=== PATIENT | female | born 1995 | race Caucasian/White ===

== ENCOUNTER 2024-01-12 16:31 | Emergency (ER) | payer SELFPAY ==
[2024-01-12 16:39] VITALS: BP 154/102; PULSE 108; TEMP 37.7; O2SAT 98; BMI 41.2
[2024-01-12 17:02] LABS: Influenza Virus A Antigen Negative; Influenza Virus B Antigen Negative; Internal Control Within Normal Limits; Strep A Antigen Screen Negative
[2024-01-12 17:03] LABS: Internal Control Within Normal Limits; SARS-CoV-2 Ag NEGATIVE (NEGATIVE)
--- NOTE | 2024-01-12 17:14 | ED.URI1 ---
HPI - URI/Sore Throat General Chief Complaint: Upper Respiratory Infection Stated Complaint: WEAKNESS Time Seen by Provider: 01/12/24 16:48 Source: patient Limitations: no limitations History of Present Illness HPI Narrative: The patient is coming to us with 1 day history of bilateral ear pain in addition to sore throat and cough productive, also generalized weakness and fever that she took some Tylenol for at home Patient denies any other concerns Related Data Previous Rx's ?Medication ?Instructions ?Recorded ciprofloxacin HCl 0.2 % ear drops 5 drp otic (ear) BID 7 days #14 ea 01/12/24 in a dropperette Allergies Allergy/AdvReac Type Severity Reaction Status Date / Time No Known Drug Allergies Allergy Verified 01/12/24 16:39 Review of Systems ROS Status of ROS 10 or more systems reviewed and unremarkable except as noted in history and below Exam Narrative Exam Narrative: Nurses notes and vital signs reviewed and patient is not hypoxic. General: Well-appearing and in no apparent distress. Skin: Warm, dry, no pallor noted. No rash. Head: Normocephalic, atraumatic. Neck: Supple, non-tender. Eye: Pupils are equal, round and EOMI. No scleral icterus. Ears, patient have bilateral tonsillar erythema and no enlargement or exudates, the uvula is in the midline, bilateral examination of the ears showed that the patient have external auditory canal inflamed mostly in the right side left is within normal and the tympanic membrane is intact Respiratory: No accessory muscle use or respiratory distress. Lungs are clear to auscultation, no wheezing, rales or rhonchi Chest Wall: no tenderness Back: No midline thoracic or lumbar vertebral tenderness. No CVA tenderness Musculoskeletal: normal ROM, no calf or popliteal tenderness, no lower extremity edema/swelling GI: Abdomen is soft, non-distended. Normal bowel sounds. No masses appreciated. No tenderness to palpation. No rebound, guarding, or rigidity noted. Neurological: A&O x4. No cranial nerve dysfunction observed. No truncal ataxia. Moves all extremities. Sensation intact. Psychiatric: Cooperative and interactive. Normal mood and affect. Constitutional Vital Signs, click to edit/add: Last Vital Signs Temp 99.9 F 01/12/24 16:39 Pulse 108 H 01/12/24 16:39 Resp 18 01/12/24 16:39 BP 154/102 H 01/12/24 16:39 Pulse Ox 98 01/12/24 16:39 O2 Del Method Room Air 01/12/24 16:39 Course Vital Signs Vital signs: Vital Signs Temperature 99.9 F 01/12/24 16:39 Pulse Rate 108 H 01/12/24 16:39 Respiratory Rate 18 01/12/24 16:39 Blood Pressure 154/102 H 01/12/24 16:39 Pulse Oximetry 98 01/12/24 16:39 Oxygen Delivery Method Room Air 01/12/24 16:39 Temperature 99.9 F 01/12/24 16:39 Pulse Rate 108 H 01/12/24 16:39 Respiratory Rate 18 01/12/24 16:39 Blood Pressure 154/102 H 01/12/24 16:39 Pulse Oximetry 98 01/12/24 16:39 Oxygen Delivery Method Room Air 01/12/24 16:39 MDM - URI/Sore Throat MDM Narrative Medical decision making narrative: Manager New Product the patient presenting with the upper respiratory tract infection symptoms and otitis externa Right now patient is to rest and hydrate at home in addition to ciprofloxacin eardrops for her bilateral ear Supportive care for upper respiratory tract infection symptoms The patient is to follow up with primary care physician in next 2-3 days or to return to the emergency department should any of the signs or symptoms worsen or new symptoms develop. The patient agrees with the following Diagnosis and Treatment plan and the patient will be discharged home. Lab Data Labs: Lab Results 01/12/24 Range/Units 16:42 Influenza Type A Ag Negative Influenza Type B Ag Negative SARS-CoV-2 Ag (CV2AG) Negative (NEGATIVE) Streptococcus Screen Negative Discharge Plan Discharge Chief Complaint: Upper Respiratory Infection Clinical Impression: Upper respiratory infection, Otitis externa Patient Disposition: Home, Self-Care Time of Disposition Decision: 17:12 Condition: Good Prescriptions / Home Meds: New ciprofloxacin HCl 0.2 % dropperette 5 drp otic (ear) BID 7 Days Qty: 14 0RF Rx Instructions: for both ears please it can be replaced with ophthalmic 0.3 % in case not available Print Language: Uzbek Instructions: Swimmer's Ear (ED), Acute Bronchitis (ED), Viral Syndrome (ED) Referrals: Physician,Non-Staff, MD [Primary Care Provider] - 1 week
[2024-01-12 17:28] VITALS: BP 143/99; PULSE 92; O2SAT 99
== END 2024-01-12 17:28 | disposition home or self-care (01) ==
PROVIDERS: Emergency Provider Emergency Medicine
DX: J06.9 Acute upper respiratory infection, unspecified (principal); H60.93 Unspecified otitis externa, bilateral; Z20.822 Contact with and (suspected) exposure to COVID-19
CPT/HCPCS: 87070; 87804; 87811; 87880; 99285

== ENCOUNTER 2025-01-30 11:54 | Emergency (ER) | payer MEDICAID, SELFPAY ==
--- OUTSIDE RECORDS SUMMARY | 2024-10-17 05:30 | XMS_ITS ---
Author Organization [facility] Servic es Address [address] [place] [address] Care Team Providers Care Case Management Director Name Role Phone Agnes Howard Primary Care Provider [phone] Elaine Spring Unavailable [phone] REASON FOR VISIT FILLING Social History Sex Assigned At : Social History Observation Description Sex Assigned At Female Encounters Encounter Location Date Provider Diagnosis [facility] Services [address] [place] [address] 10/17/2024 Elaine Sahni Plan Of Treatment Next Appt Details Provider Name:Zakia vaughan, 02/05/2025 09:15:00 AM, [address] [place], [address], Progress Notes * ELIEZER KOVACS LDOB:[birth year] (29 yo F)Acc No.[id number]:10/17/2024 Patient:?ELIEZER KOVACS :?ELAINE SAHNI DDSDOB:1995???Age: 29 Y???Sex:FemaleDate:10/17/2024Phone:[phone]:[address] [place] [address]Pcp:Agnes Howard Subjective: * Chief Complaints: * F ILLING Billing Information: * Procedure Codes: * Electronic signature of Elaine Sahni DDS on 01/30/2025 at 12:50 PM ESTSign off status: Pending * Provider: Rosita SAHNI DDS Date: 0 10/17/2024 Generated for Printing/Faxing/eTransmitting on:?01/30/2025 12:50 PM EST
--- OUTSIDE RECORDS SUMMARY | 2024-10-19 03:00 | XMS_ITS ---
Author Organization [facility] Servic es Address [address] [place] [address] Care Team Providers Care [place] Program Coordinator Name Role Phone Agnes Howard Primary Care Provider Elaine Spring Unavailable [phone] REASON FOR VISIT FILLING Social History Sex Assigned At : Social History Observation Description Sex Assigned At Female Encounters Encounter Location Date Provider Diagnosis [address] [place] [address] 10/19/2024 Elaine Sahni Plan Of Treatment Next Appt Details Provider Name:Zakia vaughan, 02/05/2025 09:15:00 AM, [address], [place], [address], Progress Notes * ELIEZER KOVACS LDOB:[birth year] (29 yo F)Acc No.[id number]:10/19/2024 Patient:?ELIEZER KOVACS :?ELAINE SAHNI DDSDOB:1995???Age: 29 Y???Sex:FemaleDate:10/19/2024Phone:[phone]:[address] [place] [address]Pcp:Agnes Howard Subjective: * Chief Complaints: * F ILLING Billing Information: * Procedure Codes: * Electronic signature of Elaine Sahni DDS on 01/30/2025 at 12:49 PM ESTSign off status: Pending * Provider: F IORELLA JUAN JOSE SAHNI, DDS Date: 0 10/19/2024 Generated for Printing/Faxing/eTransmitting on:?01/30/2025 12:49 PM EST
--- OUTSIDE RECORDS SUMMARY | 2024-10-24 03:00 | XMS_ITS ---
Author Organization [facility] Servic es Address [address] [place] [address] Care Team Providers Care Interdisciplinary Professor Name Role Phone Agnes Howard Primary Care Provider Elaine Spring Unavailable REASON FOR VISIT FILLING Social History Sex Assigned At : Social History Observation Description Sex Assigned At Female Encounters Encounter Location Date Provider Diagnosis [address] [place] [address] 10/24/2024 Elaine Sahni Plan Of Treatment Next Appt Details Provider Name:Zakia vaughan, 02/05/2025 09:15:00 AM, [address], [place], [address], Progress Notes * ELIEZER KOVACS LDOB:[birth year] (29 yo F)Acc No.[id number]:10/24/2024 Patient:?ELIEZER KOVACS :?ELAINE SAHNI DDSDOB:1995???Age: 29 Y???Sex:FemaleDate:10/24/2024Phone:[phone]:[address] [place] [address]Pcp:Agnes Howard Subjective: * Chief Complaints: * F ILLING * Electronic signature of Elaine Sahni DDS on 01/30/2025 at 12:49 PM ESTSign off status: Pending * Provider: Rosita SAHNI DDS Date: 0 10/24/2024 Generated for Printing/Faxing/eTransmitting on:?01/30/2025 12:49 PM EST
--- OUTSIDE RECORDS SUMMARY | 2024-12-07 03:30 | XMS_ITS ---
Author Organization [facility] Servic es Address [address] [place] [address] Care Team Providers Care Home Health Attendant Name Role Phone Agnes Howard Primary Care Provider REASON FOR VISIT BH F/U Social History Sex Assigned At : Social History Observation Description Sex Assigned At Female Encounters Encounter Location Date Provider Diagnosis [place] [address] [place] [address] 12/07/2024 Agnes Howard Plan Of Treatment Next Appt Details Provider Name:Zakia Mar[place]am[place] vaughan, 02/05/2025 09:15:00 AM, [address], [place], [address], Progress Notes * ELIEZER KOVACS LDOB:[birth year] (29 yo F)Acc No.[id number]:12/07/2024 BH F/U - Patient Patient: Chance ELIEZER BALDERRAMA :?Agnes Howard LPCDOB:1995???Age:29 Y ???Sex:FemaleDate:12/07/2024Phone:[phone]:[id number] [place] [address] Subjective: * Chief Complaints: * B H F/U Billing Information: * Procedure Codes: Care Plan Details* * Electronic signature of Agnes Howard LPC on 01/30/2025 at 12:49 PM ESTSign off status: Pending * Provider: Doroteo Howard LPC Date: 0 12/07/2024 Generated for Printing/Faxing/eTransmitting on:?01/30/2025 12:49 PM EST
--- OUTSIDE RECORDS SUMMARY | 2024-12-14 03:30 | XMS_ITS ---
Author Organization [facility] Servic es Address [address] [place] [address] Care Team Providers Care Dye Feeder Name Role Phone Agnes Howard Primary Care Provider [phone] REASON FOR VISIT BH F/U Social History Sex Assigned At : Social History Observation Description Sex Assigned At Female Encounters Encounter Location Date Provider Diagnosis [place] [address] 12/14/2024 Agnes Howard Plan Of Treatment Next Appt Details Provider Name:Zakia [place] vaughan, 02/05/2025 09:15:00 AM, [address], [place], [address], Progress Notes * ELIEZER KOVACS LDOB:[birth year] (29 yo F)Acc No.[id number]:12/14/2024 BH F/U - Patient Patient: Chance ELIEZER BALDERRAMA :?Agnes Howard LPCDOB:1995???Age:29 Y ???Sex:FemaleDate:12/14/2024Phone:[phone]:[id number] [place] [address] Subjective: * Chief Complaints: * B H F/U Billing Information: * Procedure Codes: Care Plan Details* * Electronic signature of Agnes Howard LPC on 01/30/2025 at 12:53 PM ESTSign off status: Pending * Provider: Doroteo Howard LPC Date: 0 12/14/2024 Generated for Printing/Faxing/eTransmitting on:?01/30/2025 12:53 PM EST
[2025-01-30] VITALS (12 sets, daily range): BP systolic 133–155; BP diastolic 90–109; PULSE 89; TEMP 37; O2SAT 96–99; BMI 43.9
[2025-01-30 12:47] LABS: Anion Gap 9.3; Blood Urea Nitrogen 17.0 mg/dL (7.0-18.0); Calcium 8.7 mg/dL (8.5-10.1); Carbon Dioxide 25.0 mmol/L (21.0-32.0); Chloride 109 mmol/L (98-107); Estimated GFR (African America >60 (>=60 mL/min/1.73m^2); Estimated GFR (Non-African Ame 50 (>=60 mL/min/1.73m^2); Glucose 93 mg/dL (74-106); Potassium 4.3 mmol/L (3.5-5.1); Sodium 139 mmol/L (136-145)
[2025-01-30 12:48] LABS: Hematocrit 41.7 % (36.0-48.0); Hemoglobin 14.0 g/dL (12.0-16.0); Immature Granulocytes Abs Auto 0.01 10^3/uL (0.00-0.03); Immature Granulocytes Pct Auto 0.2 % (0.0-0.5); Lymphocytes Absolute Auto 1.5 10^3/uL (1.2-3.8); Mean Corpuscular HGB Conc 33.6 g/dL (29.9-35.2); Mean Corpuscular Hemoglobin 29.9 pg (26.7-34.0); Mean Corpuscular Volume 89.1 fL (81.0-99.0); Platelet Count 262 10^3/uL (150-450); Red Blood Count 4.68 10^6/uL (4.20-5.40); White Blood Count 6.0 10^3/uL (4.0-11.0)
--- OUTSIDE RECORDS SUMMARY | 2025-01-30 12:49 | XMS_ITS | Patient Health Record ---
Author Organization [facility] Servic es Address [address] [place] [address] Care Team Providers Care Thermit Welding Machine Operator Name Role Phone Anita Agnes Primary Care Provider Yvette Spring Unavailable Nadine Lin Unavailable [phone] Allergies No Known Allergies Reason For Referral No Information Medications Medication SIG (Take, Route, Frequency, Duration) Notes Start Date End Date Status Aspirin 81 MG Tablet Chewable 1 tablet Orally On ce a day; Duration: 30 days 4ActiveCarvedilol 3.125 MG TabletTAKE 1 TABLET BY MOUTH TWICE A DAY WITH FOOD FOR 30 DAYS; Duration: 30patient needs appointmentActiveVitamin D3 125 MCG (5000 UT) Tablet1 tablet Orally Once a dayActiveMagnesium 200 MG Tablet2 tablets with a meal Orally Once a dayActive Social History Tobacco Use: Social History Observation Description Date Details (start date - stop date) Never Smoker NA - NA Sex Assigned At : Social History Observation Description Sex Assigned At Female Social History GeneralSocial InfoQuestionAnswerNotesTransition of Care:ER/UC/hospital since last office visit?NoSpecialist seen since last office visit?NoSubstance abuse/mental health issues of patient/familyPatient -Caffeine Use, Alcohol Ability to understand healthcare/treatmentPatient:FairTobacco Screen:Are you a: never smokerSocial/Support Concerns:Patient:NoAlcohol Screening:Did you have a drink containing alcohol in the past year?Yes? How often did you have a drink containing alcohol in the past year?Monthly or less (1 point)Points1 InterpretationNegativeBehaviors affecting healthPoor/Risky Behaviors:Denies- Communication Barrier:Language Barrier?:No Problems Problem Type SNOMED Code ICD Code Onset Dates Problem Status W/U Status Risk Notes Problem Essential hypertension (98851752) Essenti al hypertension (I10) ActiveconfirmedProblemNephrotic syndrome (53254629)Nephrotic syndrome (N04.9) ActiveconfirmedProblemPosttraumatic stress disorder (22890117)PTSD (post- traumatic stress disorder) (F43.10)ActiveconfirmedProblemChronic kidney disease stage 3A (472825820)Stage 3a chronic kidney disease (N18.31)Activeconfirmed Encounters Encounter Location Date Provider Diagnosis [address] [address] 10/25/2024 Agnes Howard PTSD (post-traumatic stress disorder) F43.[address] [address] 11/30/2024 Agnes Howard PTSD (post-traumatic stress disorder) F43.[address] [address] 06/14/2024 Yvette Javed Encounter for dental examination and cleaning with abnormal findings Z01.21 ; Other dental procedure status Z98.818 ; Disturbances in tooth eruption K00.6 ; Acute gingivitis, plaque induced K05.00 ; Dental caries on pit and fissure surface penetrating into dentin K02.52 and Necrosis of pulp K04.[address] [address] 08/08/2024 Yvette Javed Dental caries on pit and fissure surface penetrating into dentin K02.[address] [address] 08/03/2024 Nadine Lin Dental caries on pit and fissure surface penetrating into dentin K02.52 ; Encounter for dental examination and cleaning with abnormal findings Z01.21 and Other dental procedure status Z98.818 Assessments Encounter Date Diagnosis (ICD Code) Assessment Notes Treatment Notes Treatment Clinical Notes Section Notes 06/14/2024 Encounter for dental examination and cleaning with abnormal findings (ICD-10 - Z01.21) 08/03/2024Dental caries on pit and fissure surface penetrating into dentin (ICD- 10 - K02.52)08/08/2024Dental caries on pit and fissure surface penetrating into dentin (ICD-10 - K02.52)10/25/2024PTSD (post-traumatic stress disorder) (ICD-10 - F43.10)11/30/2024PTSD (post-traumatic stress disorder) (ICD-10 - F43.10) 08/03/2024Encounter for dental examination and cleaning with abnormal findings (ICD-10 - Z01.21)06/14/2024Other dental procedure status (ICD-10 - Z98.818) 06/14/2024Disturbances in tooth eruption (ICD-10 - K00.6)08/03/2024Other dental procedure status (ICD-10 - Z98.818)06/14/2024ute gingivitis, plaque induced (ICD-10 - K05.00)06/14/2024Dental caries on pit and fissure surface penetrating into dentin (ICD-10 - K02.52)06/14/2024Necrosis of pulp (ICD-10 - K04.1) Plan Of Treatment Next Appt Details Provider Name:Zakia vaughan, 02/05/2025 09:15:00 AM, [address], [place], [address], Insurance Providers Payer Name Payer Address Payer Phone Subscriber Number Group Number Insured Name Patient Relationship to Insured Coverage Start Date Coverage End Date [employer] [place] Medicaid [address] [place] [address] [id number] ELIEZER ELLIOTT - patient is the insured 3 [facility] BCB[address] [place] [id number] ARENAS - patient is the [id number] COMMERCIALPO [address] [address] [place] [id number], MORGANSelf - patient is the [id number] 2024[facility] [address] [place] [id number], MORGANSelf - patient is the [id number] 2024 [facility] [address] [place] [address] [phone], MORGANSelf - patient is the insured 2024[facility] [place] MedicaidPO [address] [address] [place] [address] [id number], MORGANSelf - patient is the insured 2024[facility] [address] [place] [phone] [id number], MORGANSelf - patient is the [id number] 2024 Medical (General) History Medical History History ICD Code KIDNEY DISEASE HTNSurgical History Surgery Date(Month/Year) 2 CSECTIONS TONILECTOMYURETHRA REATTACHMENT
--- OUTSIDE RECORDS SUMMARY | 2025-01-30 12:50 | XMS_ITS | Clinical Summary ---
Author Organization [facility] Healthcare Address [address] [place] [address] Care Team Providers Care Weight Control Engineer Name Role Phone Unavailable Primary Care Provider Unavailabl e Allergies No known active allergies Medications MedicationSigDispense QuantityRefillsLast FilledStart DateEnd DateStatus cholecalciferol (Vitamin D-3) 125 MCG (5000 UT) tablet 1 (one) time each day at the same timeActive losartan (Cozaar) 25 MG tablet Take 25 mg by mouth in the morning.5Active sulfacetamide suspension (Klaron) 10 % lotion topical Indications:Acne vulgarisApply thin layer to face once daily, 30 day supply. 118 mL 5Active tretinoin (Retin-A) 0.025 % cream Indications:Acne vulgarisApply topically at bedtime Apply thin layer to face at bedtime 45 g /6Active Active Problems No known active problems Family History Medical HistoryRelationNameCommentsMelanomaNeg Hx Social History Tobacco UseTypesPacks/DayYears UsedDateSmoking Tobacco: NeverSmokeless Tobacco: Never Tobacco Cessation:Counseling Given: Not Answered CommentsUnknownSex and Gender InformationValueDate RecordedSex Assigned at BirthNot on fileLegal PkcJmrdis12/15/2023 6:58 PM EDTGender IdentityNot on fileSexual OrientationNot on file Last Filed Vital Signs Vital SignReadingTime TakenCommentsBlood Ekgmozts551/7102/25/2020 12:00 PM EST Pulse--Temperature--Respiratory Rate--Oxygen Saturation--Inhaled Oxygen Concentration--Kdslpt45.3 kg (208 lb)02/25/2020 12:00 PM FOBIjdysx710.6 cm (5' 4 )02/25/2020 12:00 PM ESTBody Mass Index35.712 12:00 PM EST Plan of Treatment Not on file Insurance * Guarantor: Tom Urban TypeRelation to PatientDate of PhoneBilling AddressPersonal/CoolcqJbgi64/03/[id number] [address]
--- OUTSIDE RECORDS SUMMARY | 2025-01-30 12:50 | XMS_ITS | Encounter Summary ---
Author Organization [facility] tem Address [id number] [address] [place] [address] Care Team Providers Care Asset Protection Detective Name Role Phone Delicia Parker HASHER MACHINE OPERATOR-OIL FILTERS INSPECTOR Primary Care Provider + Encounter Details DateTypeDepartmentCare Team (Latest Contact Info)Qpvdioqtddx51/11/2025Results Follow-Up [facility] - Emergency Department [address] [place] [address] Delicia Parker, HASHER MACHINE OPERATOR-OIL FILTERS INSPECTOR [address] [place] [address] ECG 12 lead Social History Tobacco UseTypesPacks/DayYears UsedDateSmoking Tobacco: NeverSmokeless Tobacco: NeverAlcohol UseStandard Drinks/WeekCommentsNot Currently0 (1 standard drink = 0.6 oz pure alcohol)[facility] UtilitiesAnswerDate RecordedIn the past 12 months has the [employer], gas, oil, or water [facility] threatened to shut off services in your home?No10/19/2024Overall Financial Resource Strain (CARDIA)AnswerDate Recorded How hard is it for you to pay for the very basics like food, housing, medical care, and heating?Not hard at all10/26/2022HQ-2AnswerDate RecordedTotal Score14 09/28/2024PRAPARE - TransportationAnswerDate RecordedIn the past 12 months, has lack of transportation kept you from medical appointments or from getting medications?No10/19/2024In the past 12 months, has lack of transportation kept you from meetings, work, or from getting things needed for daily living?No 10/19/2024Edinburgh Depression ScaleAnswerDate RecordedEdinburgh Depression Scale Makne704The thought of harming myself has occurred to me.Never11/23/2022Housing InstabilityAnswerDate RecordedAre you worried or concerned that in the next two months you may not have stable housing that you own, rent or stay in as a part of a household?No10/19/2024hildcare AnswerDate RecordedDo problems getting early childhood associate make it difficult for you to work or study?No10/26/2022EmploymentAnswerDate RecordedDo you need help finding a local career center and/or a training program?No10/04/2022Hunger Screening AnswerDate RecordedWithin the past 12 months we worried whether our food would run out before we got money to buy more.Never True12/07/2024Within the past 12 months the food we bought just didn't last and we didn't have money to get more. Never True12/07/2024CommentsNoSex and Gender InformationValueDate RecordedSex Assigned at CmyexFwhnex00/07/2023 10:14 AM EDTLegal SexFemale 12/02/2020 11:56 AM EDTGender OfgouserOjairz50/07/2023 10:14 AM EDTSexual QejdvgxnlhzMvujnpwh03/07/2023 10:14 AM EDTdocumented as of this encounter Plan of Treatment DateTypeDepartmentCare Team (Latest Contact Info)Mhhdustxenn00/13/2025 4:15 PM ESTAppointment [facility] [address] [place] [address] 03/22/2025 9:40 AM ESTOffice Visit [facility] [address] [place] [address] Delicia Parker, HASHER MACHINE OPERATOR-OIL FILTERS INSPECTOR [address] [place] [address] documented as of this encounter Visit Diagnoses Not on filedocumented in this encounter Additional Health Concerns InfectionOnset DateLast IndicatedResolved TimeRespiratory Rule-Out12/07/2024 5012/07/2024 10:16 PM EDTAssessmentNoted TimePHQ-9 Depression Total Score: 14009/28/2024 11:50 AM EDTdocumented as of this encounter Care Teams Team MemberRelationshipSpecialtyStart DateEnd Date Delicia Parker, HASHER MACHINE OPERATOR-OIL FILTERS INSPECTOR [address] [place] [address] PCP - GeneralFamily Medicine04/26/24documented as of this encounter
--- OUTSIDE RECORDS SUMMARY | 2025-01-30 12:50 | XMS_ITS | Patient Health Record ---
Author Organization Formerly [facility] vices Address [address] [place], [place] [id number] Care Team Providers Care Big Data Analytics Lead Name Role Phone Kostas Rosa Unavailable [phone] Allergies No Known Allergies Reason For Referral No Information Problems Problem Type SNOMED Code ICD Code Onset Dates Problem Status W/U Status Risk Notes Problem Hypertension (96128109) HTN (hypertension ) (I10) ActiveconfirmedProblemVenereal disease screening (011362413)Screening for STD (sexually transmitted disease) (Z11.3)ActiveconfirmedComment:counseled on gardasil vaccine, encouraged condom use,ProblemLower urinary tract infectious disease (disorder) (9832935)UTI (lower urinary tract infection) (N39.0)Active confirmedComment:> 100 k ecoli, intermediate resisitence to macrobid, sent in cipro,ProblemContraception care management (907705046)Contraception management (Z30.9)ActiveconfirmedComment:Contraception counseling and management done., ProblemHypertrophy of vulva (10772349)Labia enlarged (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 Guardian consents as does patient,Story:pt states gets in the way when uses tampons, during intercourse, causes pain, effects self esteem, pt very self conscious about this,Problem Proteinuria (01659732)Proteinuria (R80.9)ActiveconfirmedComment:24 hr urine collection demonstrated 398 mg of protein in urine, will refer to nut sorter, ProblemNoninflammatory disorder of the vagina (80860479)Discharge from the vagina (N89.8)ActiveconfirmedComment:normal cervical mucous, no odor,Description:Vaginal DischargeProblemVenereal disease screening (394917710) Screen for STD (sexually transmitted disease) (Z11.3)ActiveconfirmedProblem Contraception care education (311477576)Encounter for contraceptive planning (Z30.09)ActiveconfirmedProblemFlank pain (473215312)Flank pain (R10.9)Active confirmedComment:Pt recently treated for UTI with Macrobid. Said that most symptoms improved but she is still having flank pain.,ProblemPain in female pelvis (254135489)Pelvic pain in female (R10.2)Activeconfirmed Comment:dysmenorrhea, pt states only has pelvic pain when has cycles US normal pt has been on depo, states persistently having irregular bleeding, desires to try alternative management - pt states stopped using patch as no longer sexually active dysmenorrhea resolved. Cycles regular, ProblemVaginal odor (513301055)Vaginal odor (N89.8)ActiveconfirmedProblem Noninflammatory disorder of the vagina (16820269)Foul smelling vaginal discharge (N89.8)ActiveconfirmedComment:Vaginal discharge with odor. Empiric treatment. Vag cx sent. STD screen done.,ProblemContraception care education (884040809) Family planning advice (Z30.09)ActiveconfirmedDescription:CONTRACEPTIVE COUNSELING NEC Plan Of Treatment No Information Insurance Providers Payer Name Payer Address Payer Phone Subscriber Number Group Number Insured Name Patient Relationship to Insured Coverage Start Date Coverage End Date [facility] [address] [place] [address] [id number] Dalia Urban - patient is the [id number] 2022Medicaid [facility] [address] [place], [place] [id number], MorganSelf - patient is the [id number] 2022 Medical (General) History Surgical History Surgery Date(Month/Year) Tonsillectomy and adenoidectomy, Problem Status: Active, Surgery to reattach urethra, COMMENTS: 2009, ProblemStatus: Active,
--- OUTSIDE RECORDS SUMMARY | 2025-01-30 12:50 | XMS_ITS | Encounter Summary ---
Author Organization [facility] tem Address [id number] [address] [place] [address] Care Team Providers Care Supervisor Cytogenetic Laboratory Name Role Phone Delicia Parker HOUSEKEEPER MANAGER-SPLIT LEATHER DEPARTMENT SUPERVISOR Primary Care Provider + Encounter Details DateTypeDepartmentCare Team (Latest Contact Info)Tilohhctvfj96/06/2025Results Follow-Up [facility] - Emergency [address] [place] [address] Delicia Parker, HOUSEKEEPER MANAGER-SPLIT LEATHER DEPARTMENT SUPERVISOR [address] [place] [address] ECG 12 lead Social History Tobacco UseTypesPacks/DayYears UsedDateSmoking Tobacco: NeverSmokeless Tobacco: NeverAlcohol UseStandard Drinks/WeekCommentsNot Currently0 (1 standard drink = 0.6 oz pure alcohol)[facility] UtilitiesAnswerDate RecordedIn the past 12 months has the Training Advisor, gas, oil, or water [employer] threatened to shut off services in your [...] living?No 10/19/2024Edinburgh Depression ScaleAnswerDate RecordedEdinburgh Depression Scale Wyilj914The thought of harming myself has occurred to me.Never11/23/2022Housing InstabilityAnswerDate RecordedAre you worried or concerned that in the next two months you may not have stable housing that you own, rent or stay in as a part of a household?No10/19/2024hildcare AnswerDate RecordedDo problems getting child adolescent psychiatrist make it difficult for you to work [...] True12/07/2024CommentsNoSex and Gender InformationValueDate RecordedSex Assigned at OnsykFbfigf91/07/2023 10:14 AM EDTLegal SexFemale 12/02/2020 11:56 AM EDTGender WwulbyvfZprnnl88/07/2023 10:14 AM EDTSexual CqcocqvwolgBsxbljsd81/07/2023 10:14 AM EDTdocumented as of this encounter Plan of Treatment DateTypeDepartmentCare Team (Latest Contact Info)Nlbftzknwkt96/13/2025 4:15 PM ESTAppointment [facility] [address] [place] [address] 03/22/2025 9:40 AM ESTOffice Visit [facility] [address] [place] [address] Delicia Parker, HOUSEKEEPER MANAGER-SPLIT LEATHER DEPARTMENT SUPERVISOR [address] [place] [address] documented as of this encounter Visit Diagnoses Not on filedocumented in this encounter Additional Health Concerns AssessmentNoted TimePHQ-9 Depression Total Score: 14009/28/2024 11:50 AM EDT documented as of this encounter Care Teams Team MemberRelationshipSpecialtyStart DateEnd Date Delicia Parker, HOUSEKEEPER MANAGER-SPLIT LEATHER DEPARTMENT SUPERVISOR [address] [place] [address] PCP - GeneralFamily Medicine04/26/24documented as of this encounter
--- OUTSIDE RECORDS SUMMARY | 2025-01-30 12:54 | XMS_ITS | CCD ---
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 Never take opioids in greater amounts or more often than prescribed. ??? Follow up with your primary health care provider. o Work together to create a plan on how to manage your pain. o Talk about ways to help manage your pain that don???t involve prescription opioids. o Talk about any and all concerns and side effects. ??? Help prevent misuse and abuse o Never sell or share prescription opioids. o Never use another person???s prescription opioids. ??? Store prescription opioids in a secure place and out of reach of others (this may include visitors, children, friends, and family). ??? Safely dispose of unused prescription o (more content not included)...Normal [facility] Patient SummaryED Patient Summary [place] [id number] Patient Discharge Instructions Person Information Name: TOM KOVACS Age: 29 Years Arrival Date: 01/23/2025 20:46:16 Discharge Diagnosis: Chronic kidney disease (CKD); Episodic weakness Primary Care Physician: NU DASH CNP Provider Information Primary Provider: Brian De La Cruz DO [employer] Clerk:Margarita Arana PA-C The exam and treatment you received in the Emergency Department were for an urgent problem and are not intended as complete care. It is important that you follow up with a doctor, nurse practitioner,or physician???s procurement assistant for ongoing care. If your symptoms become worse or you do not improve asexpected and you are unable to reach your usual health care provider, you should return to the Emergency Department. We are available 24 hours a day. TOM KOVACS has been given the following list of patient education materials, prescriptionsand follow-up instructions: Follow-up Instructions: With: Address: When: Manuela Ahn In 3 days 01/27/2025 Comments: Call to schedule a follow-up appointment with your neurologist or the one provided. Return to the ED with any new or worsening symptoms. With: Address: When: NU DASH [address] [place] [address] [facility] () In 3 days 01/27/2025 Comments: Call to schedule a follow-up appointment with your primary care provider. Return to the ED with anynew or worsening symptoms. In the event that this physician does not participate in your insurance network, please consult with your insurance company to find a nearby participating provider. Patient Education Materials: Chronic Kidney Disease, Adult, Omrp-hl-Igcl A MESSAGE TO ALL PATIENTS REGARDING OPIOIDS PRESCRIPTION OPIOIDS: WHAT YOU NEED TO KNOW Prescription opioids can be used to help relieve gbyifkwb-kn-tenmrr pain and are often prescribed following a surgery or injury, or for certain health conditions. These medications can be an important part of the treatment but also come with serious risks. It is important to work with your healthcare provider to make sure you are getting the safest, most effective care. WHAT ARE THE RISKS AND SIDE EFFECTS OF OPIOID USE? Prescription opioids carry serious risks of addiction and overdose, especially with prolonged use. An opioid overdose, often marked by slowed breathing, can cause sudden . The use of prescription opioids can have a number of side effects as well, even when taken as directed: ??? Tolerance???meaning you might need to take more of the medication for the same pain relief ??? Physical dependence???meaning you have symptoms of withdrawal when a medication is stopped ??? Increased sensitivity to pain ??? Constipation ??? Nausea, vomiting, and dry mouth ??? Sleepiness and dizziness ??? Confusion ??? Depression ??? Low levels of testosterone that can result in lower sex drive, energy, and strength ??? Itching and sweating RISKS ARE GREATER WITH: ??? History of drug misuse, substance use disorder, or overdose ??? Mental health conditions (such as depression or anxiety) ??? Sleep apnea ??? Older age (65 years and older) ??? Avoid alcohol while taking prescription opioids. Also, unless specifically advised by your health care provider, medications to avoid include: ??? Benzodiazepines (such as Xanax or Valium) ??? Muscle relaxants (such as Soma or Flexeril) ??? Hypnotics (such as Ambien or Lunesta) ??? Other prescription opioids KNOW YOUR OPTIONS Talk to your health care provider about ways to manage your pain that don???t involve prescription opioids. Some of these options may actually work better and have fewer risks and side effects. Options may include: ??? Pain relievers such as acetaminophen, ibuprofen, and naproxen ??? Some medication that are also used for depression or seizures ??? Physical therapy and exercise ??? Cognitive behavioral therapy, a psychological, goal-directed approach, in which patients learn how to modify physical, behavioral, and emotional triggers of pain and stress. IF YOU ARE PRESCRIBED OPIOIDS FOR PAIN: ??? Never take opioids in greater amounts or more often than prescribed. ??? Follow up with your primary health care provider. o Work together to create a plan on how to manage your pain. o Talk about ways to help manage your pain that don???t involve prescription opioids. o Talk about any and all concerns and side effects. ??? Help prevent misuse and abuse o Never sell or share prescription opioids. o Never use another person???s prescription opioids. ??? Store prescription opioids in a secure place and out of reach of others (this may include visitors, children, friends, and family). ??? Safely dispose of unused prescription o (more content not included)...Normal [facility] CenterUA with Cult Rflxon 58-82-8972Unnag (U)Colorless AbnormalYellowTrinity Health System Twin City Medical CenterComment on above:Order Comment: Added by Discern ExpertResult Comment: Microscopic readings are only performed on those samples that meet specific criteria set forth by [facility].Performed By: #### [id number] #### [facility] [address], [place] [address]Hkiddwr (U) [Mass/Vol]NegativeNormalNegativeTrinity Health System Twin City Medical CenterComment on above:Order Comment: Added by Discern ExpertPerformed By: #### [id number] #### Aneudy [facility] [address], [place] [address]Ynysvpm Ql (U)NegativeNormalNegProvidence Hospital Comment on above:Order Comment: Added by Discern ExpertPerformed By: #### [id number] #### Amado [facility] [address], [place] [address]HU BloodNegativeNormalNegProvidence Hospital Comment on above:Order Comment: Added by Discern ExpertPerformed By: #### [id number] #### Amado [facility] [address], [place] [address]PW BacteriaTraceNormalTraceTrinity Health System Twin City Medical CenterComment on above:Order Comment: Added by Discern ExpertPerformed By: #### [id number] #### [facility] [address], [place] [address]SB ClarityClearNormalClearTrinity [facility] System [facility] Medical CenterComment on above:Order Comment: Added by Berhane ExpertPerformed By: #### [id number] #### [facility] [address], [place] [address]VH Leuk EstNegativeNormalNegProvidence Hospital Comment on above:Order Comment: Added by Discern ExpertPerformed By: #### [id number] #### Amado [facility] [address], [place] [address]AC MucousNegativeNormalNegativeTr[facility] Health [facility] Comment on above:Order Comment: Added by Discern ExpertPerformed By: #### [id number] #### Amado [facility] [address], [place] [address]CL NitriteNegativeNormalNegProvidence Hospital Comment on above:Order Comment: Added by Discern ExpertPerformed By: #### [id number] #### [facility] [address], [place] [address]VB pH6.0Invalid Interpretation Code5.0-9.0[facility]iel Medical CenterComment on above:Order Comment: Added by Berhane ExpertPerformed By: #### [id number] #### [facility] [address], [place] [address]NI Protein1+ mg/dLAbnormalNegProvidence Hospital Comment on above:Order Comment: Added by Berhane ExpertPerformed By: #### [id number] #### [facility] [address], [place] [address]VM RQW1-1Anjkdb8-2YzfiheProvidence HospitalComment on above: Order Comment: Added by Berhane ExpertPerformed By: #### [id number] #### [facility] [address] [place] [address]HB Spec Grav1.021Invalid Interpretation Code1.005-1.030[facility] CenterComment on above:Order Comment: Added by Discern Expert Performed By: #### [id number] #### [facility] [address] [place] [address]XB Squam Epithelial5-8Invalid Interpretation CodeTrinity Health System Twin City Medical CenterComment on above:Order Comment: Added by Berhane ExpertPerformed By: #### [id number] #### [facility] [address] [place] [id number] UrobilinogenNegativeNormalNegativeTrinity Health System Twin City Medical CenterComment on above:Order Comment: Added by Berhane ExpertPerformed By: #### [id number] #### [facility] [address], [place] [address]XS ZEH7-1Imhedh5-6KthmvhProvidence HospitalComment on above: Order Comment: Added by Berhane ExpertPerformed By: #### [id number] #### [facility] [address] [place] [address]Hjhwapgigxhm (U) [Mass/Vol]NegativeNormalNegativeTrinity Health System Twin City Medical CenterComment on above:Order Comment: Added by Berhane ExpertPerformed By: #### [id number] #### [facility] [address], [place] [address]HN Chest Single Viewon [id number] Chest Single ViewExam Date/Time: 01/23/2025 21:49 EST Reason for Exam: Chest pain Report IMPRESSION: NO RADIOGRAPHIC EVIDENCE OF ACUTE INTRATHORACIC PROCESS. EXAM: XR Chest Single View History: Chest pain Technique: Portable AP view of the chest. Comparison: 03/19/2022 Findings: The cardiomediastinal silhouette is within normal limits. No pneumothorax, pleural effusion, or consolidation. No acute osseous abnormality. Ordering Provider: Margarita Arana FINAL REPORT Dictated: 01/24/2025 10:10 am Eugene Ng DO Signed (Electronic Signature): 01/24/2025 10:10 am Signed by: Eugene Ng DO Transcribed by: LEXIE Technologist: [facility] CenterBB Draw & Holdon [id number] D&HSample drawn for Blood [facility] - DublinComment on above:Performed By: #### [id number] #### [facility] [address], [place] [address]OEZob 05-61-3500Ujvfz gap [Moles/Vol]11 mmol/LNormal6-16[facility] CenterComment on above:Performed By: #### [id number] #### [facility] [address], [place] [address]PUV/Creat Ratio15 No ZuwxhKifjzm02-98MwwmloTrinity Health System Twin City Medical CenterComment on above:Performed By: #### [id number] #### [facility] [address], [place] [address]Qnymhrx [Mass/Vol]8.7 mg/dLLow8.9-11.1FProvidence HospitalComment on above:Performed By: #### [id number] #### [facility] [address], [place] [address]Jsmcvwhv [Moles/Vol]106 mmol/ERfzswm499-540EdadjlTrinity Health System Twin City Medical CenterComment on above:Performed By: #### [id number] #### [facility] [address], [place] [address]DF7 [Moles/Vol]23 mmol/FXgboti75-01TgvesmTrinity Health System [facility] Comment on above:Performed By: #### [id number] #### [facility] [address], [place] [address]Yrsqxxskzi [Mass/Vol]1.5 mg/dLHigh0.5-1.3FProvidence HospitalComment on above:Performed By: #### [id number] #### [facility] [address], [place] [address]Wxxxrho [Mass/Vol]96 mg/nCYkopvz10-180AkaaivTrinity Health System Twin City Medical CenterComment on above:Performed By: #### [id number] #### [facility] [address], [place] [address]Gfxprqafi [Moles/Vol]4.0 mmol/LNormal3.5-5.3FProvidence HospitalComment on above:Performed By: #### [id number] #### [facility] [address], [place] [address]Gzxozs [Moles/Vol]136 mmol/TUwwvbj757-050WexfnrTrinity Health System Twin City Medical CenterComment on above:Performed By: #### [id number] #### [facility] [address] [place] [address]Vyge nitrogen [Mass/Vol]22 mg/dLHigh5-21[facility] CenterComment on above:Performed By: #### [id number] #### [facility] [address], [place] [address]BIQ w/ Auto Diffon 78-02-2947Pilzajla Absolute0.0 E9/LNormal 0.0-0.2FProvidence HospitalComment on above:Performed By: #### [id number] #### [facility] [address], [place] [address]Izvzvszul/100 WBC (Bld)0.4 %Normal0.0-2.0[facility] Medical CenterComment on above:Performed By: #### [id number] #### [facility] [address], [place] [address]Lji Absolute0.1 E9/LNormal0.0-0.5FProvidence Hospital Comment on above:Performed By: #### [id number] #### [facility] [address], [place] [address]Xwpuqvdzaro/100 WBC (Bld)1.2 %Normal0.0-8.0[facility] Medical CenterComment on above:Performed By: #### [id number] #### [facility] [address], [place] [address]Wbwlsbsukrx distribution width (RBC) [Ratio]13.2 %Normal 10.9-14.2FProvidence HospitalComment on above:Performed By: #### [id number] #### [facility] [address] [place] [address]Kbkzhalvet (Bld) [Volume fraction]41.8 %Oopjer51.0-46.0[facility] Medical CenterComment on above:Performed By: #### [id number] #### [facility] [address], [place] [address]Bautmxexca (Bld) [Mass/Vol]14.4 g/sONijkmq38.0-16.0[facility] Medical CenterComment on above:Performed By: #### [id number] #### [facility] [address], [place] [address]Mvckp Absolute1.9 E9/LNormal1.0-4.0[facility] Comment on above:Performed By: #### [id number] #### [facility] [address], [place] [address]Euhiwehtoar/100 WBC (Bld)16.7 %Kogqyp66.0-50.0[facility] Medical CenterComment on above:Performed By: #### [id number] #### [facility] [address], [place] [address]QWS (RBC) [Entitic mass]30.1 wgZlijoj38.0-34.0[facility] CenterComment on above:Performed By: #### [id number] #### Amado [facility] [address] [place] [address]THXO (RBC) [Mass/Vol]34.4 g/qXBufdov71.4-36.0[facility] CenterComment on above:Performed By: #### [id number] #### [facility] [address] [place] [address]VPG (RBC) [Entitic vol]87.4 vIHqdvbd89.0-100.0[facility] CenterComment on above:Performed By: #### [id number] #### [facility] [address] [place] [address]Vqpk Absolute0.6 E9/LNormal0.2-1.0[facility] Comment on above:Performed By: #### [id number] #### [facility] [address] [place] [address]Ltmygsmri/100 WBC (Bld)4.8 %Normal4.0-14.0[facility] Medical CenterComment on above:Performed By: #### [id number] #### [facility] [address] [place] [address]Izrzzw Absolute8.8 E9/LHigh2.0-7.5FProvidence Hospital Comment on above:Performed By: #### [id number] #### [facility] [address], [place] [address]Iwgmlk Auto76.9 %High36.0-75.0[facility] Comment on above:Performed By: #### [id number] #### [facility] [address] [place] [address]Qnubydde686.0 E9/YTawdja030.0-500.0[facility] Comment on above:Performed By: #### [id number] #### [facility] [address], [place] [address]Zbktbfxp mean volume (Bld) [Entitic vol]7.8 fLNormal6.4-10.8 [facility] Medical CenterComment on above:Performed By: #### [id number] #### [facility] [address], [place] [address]IPS6.8 E12/LNormal4.3-5.9[facility] Medical CenterComment on above:Performed By: #### [id number] #### [facility] [address], [place] [address]EQW27.5 E9/LHigh4.0-11.0[facility] Medical CenterComment on above:Performed By: #### [id number] #### [facility] [address], [place] [address]YU & PTTon 57-15-5608OWY Coag (PPP) [Relative time]1.03 {INR} Invalid Interpretation CodeTrinity Health System Twin City Medical CenterComment on above:Result Comment: INR results are specifically intended to assess patients stabilized on long-term Anticoagulation therapy suggested INR???s ???Less Intensive Anticoagulation??? 2.0 ??? 3.0 Conventional Range 3.0 ??? 4.5Performed By: #### [id number] #### [facility] [address], [place] [address]RV76.5 second(s)Normal9.4-12.5FProvidence Hospital Comment on above:Result Comment: 15 days - 4 weeks 1 - 5 months 6 -11 months 1 ??? 5 years 6 ??? 10 years 11 -17 years Mean: 11.2 (9.5 ??? 12.6) Mean: 11.0 (9.7 ??? 12.8) Mean: 11.0 (9.8 ??? 13.0) Mean: 11.3 (9.9 ??? 13.4) Mean: 11.7 (10.0 ??? 14.6) Mean: 11.8 (10.0 - 14.1) Pediatric Reference ranges were obtained from a study by karthik Hooks. prepared from 1437 samples obtained at 7 different centers using the same coagulation reagent and instrumentation as [facility]. Currently there are no coagulation studies available worldwide for children to 14 days, andno normal ranges.Performed By: #### [id number] #### Amado [facility] [address], [place] [address]KHB71.0 second(s)Iqdnfx91.1-36.5FProvidence Hospital Comment on above:Result Comment: Parameter 15 days - 4 weeks 1 - 5 months 6 - 11 months 1 - 5 years 6 - 10 years 11 - 17 years PTT Mean: 35.4 (27.6-45.6) Mean: 33.5 (24.8-40.7) Mean: 32.4 (25.1-40.7) Mean: 31.6 (24.0-39.2) Mean: 31.6 (26.9-38.7) Mean: 31.0 (24.6-38.4) Pediatric Reference ranges were obtained from a study by Ridge Fritz et al. prepared from 1437 samples obtained at 7 different centers using the same coagulation reagent and instrumentation as [facility]. Currently there are no coagulation studies available worldwide for children to 14 days, andno normal ranges. Heparin therapeutic range (represented by Anti-Factor Xa activity of 0.2 - 0.4 U/mL) corresponds to PTT of 56.6 - 109.0 sec.Performed By: #### [id number] #### Aneudy [facility] [address], [place] [address]Inv-Jqamivg Noteon 98-75-5373Knw-Arrival NotePre-Arrival Note Pre-Arrival Summary Name: , Current Date: 01/23/2025 20:46:20 EST Gender: Female Date of : Age: 29 Pre-Arrival Type: EMS ETA: 01/23/2025 20:59:00 EST Primary Care Physician: Presenting Problem: paresthesia Pre-Arrival User: Maureen Bronson RN Referring Source: Location: Completion Date/Time: 01/23/2025 20:29:00 [facility] Emergency Department Pre-Hospital Report Form Vital Signs: Pre-Hospital Report: Treatment in Route: Response to Treatment: Misc. Issues:NormalTrinity Health System Twin City Medical CenterTroponin 0 Hr.on 01-23-2025 Troponin HS2.90 pg/mLLow10.10-27.10[facility] CenterComment on above: Result Comment: The 95% CI (Confidence Interval) PPV (Positive Predictive Value) for myocardial infarction in females is 38 pg/mL, in males 51 pg/mL. The results should be used in conjunction with clinical conditions of myocardial infarction. (Access High Sensitivity Troponin I Instructions For Use, Kasia [place], October 2017)Performed By: #### [id number] #### [facility] [address], [place] [address]UZ with Cult Rflx SPon 23-90-5896JJ Spec DescClean CatchNormal [facility] CenterComment on above:Performed By: #### [id number] #### [facility] [address], [place] [address]uCFKbr 15-07-0767xASV44 mL/min/1.73 m2Low>=59[facility] Medical CenterComment on above:Performed By: #### [id number] #### [facility] [address], [place] [address]IWNK/FLU A+B/RSV BY NAAT/MOLECULAR (M4RT COLLECTION TUBE)on 90-71-5065HAUL/FLU A+B/RSV BY NAAT/MOLECULAR (M4RT COLLECTION TUBE)FLU A PCR Negative FLU B PCR Negative RSV BY PCR Negative SARS COV 2 BY PCR Not DetectedNormalNot [facility] Anderson HospitalComment on above:Order Comment: The Xpert Xpress SARS-CoV-2/Flu/RSV Plus test is a rapid, multiplexed real-time RT-PCR test intended for the simultaneous qualitative detection and differentiation of SARS-CoV-2, influenza A, influenza B and respiratory syncytial virus (RSV) viral RNA from individuals suspected of respiratory viral infection consistent with COVID-19 by Their healthcare provider. This test has not been validated in asymptomatic patients. The Xpert Xpress SARS-CoV-2 test is intended for use by qualified and trained operators who are performing tests using either [employer] or [employer] and is limited to laboratories that meet the CLIA requirements to perform high and moderate complexity tests. The Xpert Xpress SARS-CoV-2/Flu/RSV Plus is only for use under the Food and Drug Administration's Emergency Use Authorization. Results are for the simultaneous detection and differentiation of SARS-CoV-2, influenza A, influenza B and RSV nucleic acids in clinical specimens. SARS-CoV-2, influenza A, influenza B and RSV RNA identified by this test are generally detectable in upperrespiratory samples during the acute phase of infection. Positive results are Indicative of the presence of the identified virus, but do not rule out bacterial infection or co-infection with other pathogens not detected by this test. Clinical correlation with patient history and other diagnostic information is necessary to determine patient infection status. The agent detected may not be the definite cause of disease. Negative results do not preclude SARS-CoV-2, influenza A, influenza B and RSVinfection and should not be used as the sole basis for treatment or other patient management decisions. Negative results must be combined with clinical observations, patient history and epidemiological information. An Invalid result may occur with specimen-associated inhibition unable to be resolved with specimen repeat.Fact Sheet for Healthcare Providers:https://www.fda.gov/media/889515/downloadFact Sheet for Patients:https://www.fda.gov/media/679165/downloadPerformed By: #### CBC, BMP, 98688-7, 2777-1, UPCR, 2731-8, 73652-0 #### [facility] ([id number]) [address], [address] [place], [place] [address]VO CHEST 2 VWSon [id number] CHEST 2 VWSXR CHEST 2 VWS PA and lateral chest: HISTORY: Cough. 2 views the chest are obtained. Cardiac and mediastinal contours are within normal limits. Lungs are clear. There is no vascular congestion, effusion, or pneumothorax. Osseous structures appear intact. IMPRESSION: No acute findings. Finalized by Terrence Cr MD on 12/07/2024 10:01 PMNormalProPermian Regional Medical Center METABOLIC PANELon 03-14-7461Meufm gap [Moles/Vol]6 mmol/LNormal 5-15[facility]lyria Medical CenterComment on above:Performed By: #### BMP #### [facility] ([facility]) [address] [place] [address] VIRCalcium [Mass/Vol]7.4 mg/dLLow8.5-10.5PAkron Children's HospitalComment on above:Performed By: #### BMP #### [facility] ([facility]) [address] [place] [address] VIRChloride [Moles/Vol]106 mmol/ZNcqthi48-098MqzZzjaak [place] HospitalComment on above:Performed By: #### BMP #### [facility] ([facility]) [address] [place] [address] VIRCO2 [Moles/Vol]23 mmol/WIavxmr83-90FcnNdbvrfAkron Children's Hospital Comment on above:Performed By: #### BMP #### [facility] ([facility]) [address] [place] [address] VIRCreatinine [Mass/Vol]1.19 mg/dLHigh0.40-1.00ProTrinity Health System West CampusComment on above:Result Comment: METHOD TRACEABLE TO IDMS STANDARD Performed By: #### BMP #### [facility] ([facility]) [address] [place] [address] VIRGFR/1.73 sq M.predicted among non-blacks MDRD (S/P/Bld) [Vol rate/Area]64 mL/min/{1.73_m2}Normal>=60ProTrinity Health System West CampusComment on above:Result Comment: Reported eGFR is based on the CKD-EPI 2020 equation that does not use a race coefficient.Performed By: #### BMP #### [facility] ([facility]) [address] [place] [address] VIRGlucose [Mass/Vol]78 mg/iASbvdow70-57KdeFgrefs [facility] Pk HospitalComment on above:Performed By: #### BMP #### [facility] ([facility]) [address] [place] [address] VIRPotassium [Moles/Vol]5.4 mmol/LHigh3.5-5.0[facility] Pk HospitalComment on above:Result Comment: R-Specimen moderately hemolyzed, results increasedPerformed By: #### BMP #### [facility] ([facility]) [address] [place] [address] VIRSodium [Moles/Vol]135 mmol/ICzxvqj326-589KfzBriwjz [facility] HospitalComment on above:Performed By: #### BMP #### [facility] ([facility]) [address] [place] [address] VIRUrea nitrogen [Mass/Vol]16 mg/dLNormal5-23ProUc Health HospitalComment on above:Performed By: #### BMP #### [facility] ([facility]) [address] [place] [address] VIRBEDSIDE GLUCOSEon 10-60-3739Bpgobcy [Mass/Vol]86 mg/dLNormal 65-99ProUc Health HospitalComment on above:Performed By: #### PHOS #### [facility] ([facility]) [address] [place] [address] VIRCBC WITH AUTO DIFFERENTIALon [id number] ABSOLUTE COUNT (10*3/UL) BY AUTOMATED COUNT0.1 10*3/uLNormal0.0-0.2Pro[facility] HospitalComment on above:Performed By: #### PHOS #### [facility] ([facility]) [address] [place] [address] VIRBASOPHILS RELATIVE PERCENT BY AUTOMATED COUNT0.6 %Normal [facility] HospitalComment on above:Performed By: #### PHOS #### [facility] ([facility]) [address] [place] [address] VIRCELLAVISION DIFFERENTIAL TYPEAUTOMATED DIFFERENTIALNormal ProMTuscarawas Hospital HospitalComment on above:Performed By: #### PHOS #### [facility] ([facility]) [address] [place] [address] VIREosinophils (Bld) [#/Vol]0.1 10*3/uLNormal0.0-0.4Pro[facility] HospitalComment on above:Performed By: #### PHOS #### [facility] ([facility]) [address] [place] [address] VIREOSINOPHILS RELATIVE PERCENT BY AUTOMATED COUNT1.0 %Normal [facility] HospitalComment on above:Performed By: #### PHOS #### [facility] ([facility]) [address] [place] [address] VIRErythrocyte distribution width (RBC) [Ratio]13.3 %Normal 11.5-15ProKindred Hospital [facility] HospitalComment on above:Performed By: #### PHOS #### [facility] ([facility]) [address] [place] [address] VIRHematocrit (Bld) [Volume fraction]38.8 %Jtzpge72-23FoxVzalmj [facility] HospitalComment on above:Performed By: #### PHOS #### [facility] ([facility]) [address] [place] [address] VIRHemoglobin (Bld) [Mass/Vol]12.7 g/xMDrehxy52.7-15.5ProMedMercy Health St[facility] Hospital HospitalComment on above:Performed By: #### PHOS #### [facility] ([facility]) [address] [place] [address] VIRLYMPHOCYTES ABSOLUTE COUNT (10*3/UL) BY AUTOMATED COUNT1.5 10*3/uLNormal1.0-3.5PKettering Health HospitalComment on above:Performed By: #### PHOS #### [facility] ([facility]) [address] [place] [address] VIRLYMPHOCYTES RELATIVE PERCENT BY AUTOMATED COUNT14.6 %Normal [facility] Lopez HospitalComment on above:Performed By: #### PHOS #### [facility] ([facility]) [address] [place] [address] VIRMCH (RBC) [Entitic mass]29.1 fiPrfpgg72-90XxmQpaybm Lopez HospitalComment on above:Performed By: #### PHOS #### [facility] ([facility]) [address] [place] [address] VIRMCHC (RBC) [Mass/Vol]32.7 g/iAFifucl16-49JjpEwajug Lopez HospitalComment on above:Performed By: #### PHOS #### [facility] ([facility]) [address] [place] [address] VIRMCV (RBC) [Entitic vol]89 iPKzvnpz16-805PntIazkhl Lopez HospitalComment on above:Performed By: #### PHOS #### [facility] ([facility]) [address] [place] [address] VIRMONOCYTES ABSOLUTE COUNT (10*3/UL) BY AUTOMATED COUNT0.5 10*3/uLNormal0.0-0.9Pro[facility] Lopez HospitalComment on above:Performed By: #### PHOS #### [facility] ([facility]) [address] [place] [address] VIRMONOCYTES RELATIVE PERCENT BY AUTOMATED COUNT4.5 %Normal [facility] HospitalComment on above:Performed By: #### PHOS #### [facility] ([facility]) [address] [place] [address] VIRNEUTROPHILS ABSOLUTE COUNT BY AUTOMATED COUNT8.4 10*3/uLHigh 1.5-6.6Pro[facility] Lopez HospitalComment on above:Performed By: #### PHOS #### [facility] ([facility]) [address] [place] [address] VIRNEUTROPHILS RELATIVE PERCENT BY AUTOMATED COUNT79.3 %Normal [facility]ria Medical CenterComment on above:Performed By: #### PHOS #### [facility] ([facility]) [address] [place] [address] VIRPlatelet mean volume (Bld) [Entitic vol]8.0 fLNormal7-12 ProMTuscarawas Hospital HospitalComment on above:Performed By: #### PHOS #### [facility] ([facility]) [address] [place] [address] VIRPlatelets (Bld) [#/Vol]287 10*3/sQAvmncf252-225FlxYenfep [facility] SouthComment on above:Performed By: #### PHOS #### [facility] ([facility]) [address] [place] [address] VIRRBC COUNT4.36 X10E12/LNormal3.8-5.2[facility] Comment on above:Performed By: #### PHOS #### [facility] ([facility]) [address] [place] [address] VIRWBC (Bld) [#/Vol]10.6 10*3/uLNormal4-11ProKind[facility] Hospital [facility] - [facility] SouthComment on above:Performed By: #### PHOS #### [facility] ([facility]) [address] [place] [address] VIRCT BRAIN WO CONT STROKE ALERTon [id number] BRAIN WO CONT STROKE ALERTCT BRAIN WO CONT STROKE ALERT STUDY: CT BRAIN WO CONT STROKE ALERT INDICATION: bilateral leg weakness after cervical manipulation. Neurologic deficit. TECHNIQUE: * CT head was performed without intravenous contrast using the standard protocol. Automated exposure control was utilized. * All CT scans at this facility use dose modulation, iterative reconstruction, and/or weight based dosing when appropriate to reduce radiation dose to as low as reasonably achievable. COMPARISON: 10/18/2024 FINDINGS: No evidence of acute intracranial hemorrhage, mass effect, midline shift, or extra-axial fluid collection. Gomez-white differentiation is preserved. Ventricles, sulci and cistern are unremarkable. Brain volume is age appropriate. Orbits and globes appear unremarkable. Soft tissues are unremarkable. Paranasal sinuses are broadly clear. Mastoid air cells are broadly clear. No acute osseous abnormality. Please note, MRI is more sensitive for the evaluation of ischemia or subtle parenchymal abnormalities. IMPRESSION: * No acute intracranial abnormality, by CT. Approved by Resident Aida Thompson DO on 11/26/2024 4:11 PM I, Jason Carballo MD have personally reviewed the image(s) and agree with and/or edited the report Finalized by Jason Carballo MD on 11/26/2024 4:18 PMNSelect Medical Specialty Hospital - YoungstownCT CERVICAL SPINE WO CONTon [id number] CERVICAL SPINE WO CONTCT CERVICAL SPINE WO CONT CT CERVICAL SPINE WO CONT CLINICAL INFORMATION: leg weakness. COMPARISON: None. PROCEDURE: Routine cervical spine protocol CT was obtained without intravenous contrast. Sagittal and coronal reformatted images were obtained from the axial data. All CT scans at this facility use dose modulation, iterative reconstruction, and/or weight based dosing when appropriate to reduce radiation dose to as low as reasonably achievable. FINDINGS: No fracture. Degenerative changes at C4-5 with loss of normal cervical lordosis which could be positional or due to sprain. No prevertebral soft tissue swelling. Otherwise normal alignment. Please note, if ligamentous or spinal cord injury is of clinical concern, suggest MR imaging or flexion-extension radiographs. IMPRESSION: * No acute cervical spine fracture. * Mild degenerative changes. * Straightening of the normal cervical lordosis. Finalized by Jason Carballo MD on 11/26/2024 4:26 PMNSelect Medical Specialty Hospital - YoungstownCT CTA CAROTIDon [id number] CTA CAROTIDCT CTA CAROTID History: Leg weakness. Exam/Technique: Contiguous axial images are obtained of the CTA carotid angiogram 100ml Omnipaque 350 intravenous contrast. Coronal and sagittal reconstructions were performed and reviewed. CT angiogram protocol with 3-D and volumetric scans acquired. Automatic dose exposure reduction technique utilized. Comparison: 10/18/2024 Findings: NON VASCULAR FINDINGS: Study compromised by patient body habitus. Lung apices are clear. No soft tissue abnormality of note. Visualized bones of the cervical spine. VASCULAR FINDINGS: Central pulmonary outflow has a normal caliber. Aortic arch normal caliber with three-vessel configuration to the arch. Both vertebral arteries are visualized emanating from the subclavian arteries with the right dominant. Degree of opacification of the vessels appear limited likely due to decreased contrast density. No evidence of vertebral artery stenosis or occlusion in the neck. Both common carotid arteries are patent. Both carotid bulbs appear patent and both internal carotidarteries appear patent to the skull base. IMPRESSION: No significant vascular stenosis. Study interpreted with NASCET criteria. Distal ICA -Area of Stenosis/Max ICA diameter. All CT scans at this facility use dose modulation, iterative reconstruction, and/or weight based dosing when appropriate to reduce radiation dose to as low as reasonably achievable. Finalized by Ray Mao MD on 11/26/2024 4:16 [facility] HEADon [id number] CTA HEADCT CTA HEAD CLINICAL INFORMATION: leg weakness COMPARISON: 10/18/2024 TECHNIQUE: CT angiography of the head obtained during intravenous administration of contrast. In addition, MIP and/or 3-D reformatted images were constructed under concurrent physician supervision carlos independent workstation for evaluation of the the cerebral arteries to better define anatomy andpossible pathology. Arterial blood flow was measured to assist the stroke clinical team in the diagnosis of large vessel occlusion in patients undergoing screening for acute ischemic stroke using Rapid AI software when clinically indicated. All CT scans at this facility use dose modulation, iterative reconstruction, and/or weight based dosing when appropriate to reduce radiation dose to as low as reasonably achievable. FINDINGS: Suboptimal bolus timing compromises assessment. Neck dictated separately. Visualized internal carotid arteries, anterior, middle and posterior cerebral arteries are patent. Vertebral and basilar arteries are patent. No sizable saccular aneurysm. However, CT angiograms may miss small or thrombosed aneurysms. IMPRESSION: Suboptimal bolus timing compromises assessment. Within these limitations, no large vessel occlusion or aneurysm major branches of the [place]. If there is persistent concern for acute ischemia, consider MRI/MRA. Finalized by Roosevelt Toro MD on 11/26/2024 4:21 [facility] MR MRV HEAD W WO CONTon [id number] MRV HEAD W WO CONTMR MRV HEAD W WO CONT EXAM: MR MRV HEAD W WO CONT CLINICAL INFORMATION: Stroke-like symptoms. TECHNIQUE: Following the uneventful intravenous administration of 20 mL ProHance, an MRV of the head was obtained. Source and 3-D MIP reformatted images of the MRV were obtained and reviewed. Axial, sagittal, and coronal postcontrast sequences of the brain were also obtained. COMPARISON: MRI brain without contrast dated 10/18/2024 FINDINGS: There are normal patent dural venous sinuses. There is no evidence for dural venous sinus thrombosis. There is no evidence for an enhancing cranial mass or mass effect. There is no shift of the midlinestructures and the basal cisterns are widely patent. There is no evidence of ventricular outflow obstruction. The midline structures and craniocervical junction are within normal limits. There is no evidence for an enhancing cranial mass or mass effect. IMPRESSION: 1. Normal MRV head. There are normal patent dural venous sinuses without evidence for dural venous sinus thrombosis. 2. No enhancing intracranial mass or mass effect. Finalized by Brenden Maddox MD on 11/07/2024 3:[address]NormalProSt[address] Luke'S Health [facility] ACTIVATED PROTEIN C RESISTANCEon [id number] PROTEIN C RESISTANCEAPCPNL ACTIVATED PROTEIN C RESISTANCE CancelledNormalProTrinity Health System West CampusANTI CARDIOLIPIN AB IGG IGA IGMon [id number] IGA<^2.7Vuieuu6.0-19.9ProTrinity Health System West CampusComment on above:Performed By: #### MG #### [facility] ([facility]) [address] [place] [address] VIRACA IGG<^1.1Alvjvr3.0-19.9ProTrinity Health System West CampusComment on above:Performed By: #### MG #### [facility] ([facility]) [address] [place] [address] VIRACA IGM<^1.6Cfrnqc0.0-19.9ProTrinity Health System West CampusComment on above:Performed By: #### MG #### [facility] ([facility]) [address] [place] [address] VIRANTITHROMBIN III ANTIGENon [id number] III ANTIGENATTI ANTITHROMBIN III ANTIGEN CancelledNormalProTrinity Health System West Campus BEDSIDE GLUCOSEon 06-03-6515Xkwclnf [Mass/Vol]111 mg/rKOaag70-72LhuIhvuyv [place] HospitalComment on above:Performed By: #### MG #### [facility] ([facility]) [address] [place] [address] VIRGlucose [Mass/Vol]81 mg/vTGhwsov74-61MaxLoqkch [place] HospitalComment on above:Performed By: #### MG #### [facility] ([facility]) [address] [place] [address] VIRCBC WITH AUTO DIFFERENTIALon 06-35-0172SAWOWXLRC ABSOLUTE COUNT (10*3/UL) BY AUTOMATED COUNT0.1 10*3/uLNormal0.0-0.2ProMedUniversity Hospitals Beachwood Medical CenterComment on above:Performed By: #### MG #### [facility] ([facility]) [address] [place] [address] VIRBASOPHILS RELATIVE PERCENT BY AUTOMATED COUNT0.5 %Normal [facility] Medical CenterComment on above:Performed By: #### MG #### [facility] ([facility]) [address] [place] [address] VIRCELLAVISION DIFFERENTIAL TYPEAUTOMATED DIFFERENTIALNormal ProMMagruder HospitalComment on above:Performed By: #### MG #### [facility] ([facility]) [address] [place] [address] VIREosinophils (Bld) [#/Vol]0.2 10*3/uLNormal0.0-0.4ProUc Health HospitalComment on above:Performed By: #### MG #### [facility] ([facility]) [address] [place] [address] VIREOSINOPHILS RELATIVE PERCENT BY AUTOMATED COUNT1.7 %Normal ProMatrium health fl[facility] centera [facility] HospitalComment on above:Performed By: #### MG #### [facility] ([facility]) [address] [place] [address] VIRErythrocyte distribution width (RBC) [Ratio]13.2 %Normal 11.5-15Pro[facility] HospitalComment on above:Performed By: #### MG #### [facility] ([facility]) [address] [place] [address] VIRHematocrit (Bld) [Volume fraction]37.0 %Nmwwji09-54DheLwbkqh [facility] HospitalComment on above:Performed By: #### MG #### [facility] ([facility]) [address] [place] [address] VIRHemoglobin (Bld) [Mass/Vol]12.7 g/oVRkmhsb08.7-15.5Pro[facility] HospitalComment on above:Performed By: #### MG #### [facility] ([facility]) [address] [place] [address] VIRLYMPHOCYTES ABSOLUTE COUNT (10*3/UL) BY AUTOMATED COUNT2.2 10*3/uLNormal1.0-3.5ProMedMercy Health St. [facility] Hospital HospitalComment on above:Performed By: #### MG #### [facility] ([facility]) [address] [place] [address] VIRLYMPHOCYTES RELATIVE PERCENT BY AUTOMATED COUNT18.2 %Normal [facility] HospitalComment on above:Performed By: #### MG #### [facility] ([facility]) [address] [place] [address] VIRMCH (RBC) [Entitic mass]29.5 bkJqdltf03-09ZcsCpfozt [facility] HospitalComment on above:Performed By: #### MG #### [facility] ([facility]) [address] [place] [address] VIRMCHC (RBC) [Mass/Vol]34.3 g/kJNqjcdz93-82PuxLpuqbt [place] HospitalComment on above:Performed By: #### MG #### [facility] ([facility]) [address] [place] [address] VIRMCV (RBC) [Entitic vol]86 qAFagffa47-304QupNdnjqr [facility] HospitalComment on above:Performed By: #### MG #### [facility] ([facility]) [address] [place] [address] VIRMONOCYTES ABSOLUTE COUNT (10*3/UL) BY AUTOMATED COUNT0.5 10*3/uLNormal0.0-0.9ProUc Health HospitalComment on above:Performed By: #### MG #### [facility] ([facility]) [address] [place] [address] VIRMONOCYTES RELATIVE PERCENT BY AUTOMATED COUNT4.4 %Normal [facility] HospitalComment on above:Performed By: #### MG #### [facility] ([facility]) [address] [place] [address] VIRNEUTROPHILS ABSOLUTE COUNT BY AUTOMATED COUNT8.9 10*3/uLHigh 1.5-6.6ProUc Health HospitalComment on above:Performed By: #### MG #### [facility] ([facility]) [address] [place] [address] VIRNEUTROPHILS RELATIVE PERCENT BY AUTOMATED COUNT75.2 %Normal [facility] HospitalComment on above:Performed By: #### MG #### [facility] ([facility]) [address] [place] [address] VIRPlatelet mean volume (Bld) [Entitic vol]8.4 fLNormal7-12 ProMTuscarawas Hospital HospitalComment on above:Performed By: #### MG #### [facility] ([facility]) [address] [place] [address] VIRPlatelets (Bld) [#/Vol]304 10*3/wHSrwvns324-796HnyAujvsq [facility] HospitalComment on above:Performed By: #### MG #### [facility] ([facility]) [address] [place] [address] VIRRBC COUNT4.30 X10E12/LNormal3.8-5.2PAkron Children's [facility] Comment on above:Performed By: #### MG #### [facility] ([facility]) [address] [place] [address] VIRWBC (Bld) [#/Vol]11.9 10*3/uLHigh4-11ProUc Health HospitalComment on above:Performed By: #### MG #### [facility] ([facility]) [address] [place] [address] VIRCOMPREHENSIVE METABOLIC PANELon 05-91-0063Jqaptwm [Mass/Vol] 3.3 g/dLNormal3.2-5.3ProMedUniversity Hospitals Beachwood Medical CenterComment on above:Performed By: #### MG #### [facility] ([facility]) [address] [place] [address] VIRALP [Catalytic activity/Vol]79 U/OPpytuo31-402HjiAmyyzo [place] HospitalComment on above:Performed By: #### MG #### [facility] ([facility]) [address] [place] [address] VIRALT [Catalytic activity/Vol]8 U/LNormal<=31PKettering Health HospitalComment on above:Performed By: #### MG #### [facility] ([facility]) [address] [place] [address] VIRAnion gap [Moles/Vol]7 mmol/LNormal5-15ProUc Health HospitalComment on above:Performed By: #### MG #### [facility] [facility]) [address] [place] [address] VIRAST [Catalytic activity/Vol]12 U/LNormal<=41ProTrinity Health System West CampusComment on above:Performed By: #### MG #### [facility] ([facility]) [address] [place] [address] VIRBilirubin [Mass/Vol]0.4 mg/dLNormal0.3-1.2PAkron Children's HospitalComment on above:Performed By: #### MG #### [facility] ([facility]) [address] [place] [address] VIRCalcium [Mass/Vol]8.5 mg/dLNormal8.5-10.5PAkron Children's HospitalComment on above:Performed By: #### MG #### [facility] ([facility]) [address] [place] [address] VIRChloride [Moles/Vol]109 mmol/BZioswz06-997BanSphpjw [place] HospitalComment on above:Performed By: #### MG #### [facility] ([facility]) [address] [place] [address] VIRCO2 [Moles/Vol]22 mmol/CBcsdeu84-34IpmWgnpnc [facility] Comment on above:Performed By: #### MG #### [facility] ([facility]) [address] [place] [address] VIRCreatinine [Mass/Vol]1.39 mg/dLHigh0.40-1.00ProTrinity Health System West CampusComment on above:Result Comment: METHOD TRACEABLE TO IDMS STANDARD Performed By: #### MG #### [facility] ([facility]) [address] [place] [address] VIRGFR/1.73 sq M.predicted among non-blacks MDRD (S/P/Bld) [Vol rate/Area]53 mL/min/{1.73_m2}Low>=60ProTrinity Health System West CampusComment on above: Result Comment: Reported eGFR is based on the CKD-EPI 2020 equation that does not use a race coefficient.Performed By: #### MG #### [facility] ([facility]) [address] [place] [address] VIRGlucose [Mass/Vol]94 mg/hPPmwhyp68-47LurDydwkz [facility]k HospitalComment on above:Performed By: #### MG #### [facility] ([facility]) [address] [place] [address] VIRPotassium [Moles/Vol]4.5 mmol/LNormal3.5-5.0Pro[facility]k HospitalComment on above:Performed By: #### MG #### [facility] ([facility]) [address] [place] [address] VIRProtein [Mass/Vol]6.4 g/dLNormal6.0-8.0Pro[facility] HospitalComment on above:Performed By: #### MG #### [facility] ([facility]) [address] [place] [address] VIRSodium [Moles/Vol]138 mmol/QFfpodm844-634ZvuJfpicr [facility] HospitalComment on above:Performed By: #### MG #### [facility] ([facility]) [address] [place] [address] VIRUrea nitrogen [Mass/Vol]13 mg/dLNormal5-23Pro[facility] HospitalComment on above:Performed By: #### MG #### [facility] ([facility]) [address] [place] [address] VIRDRVVTon [id number] TIERRA'S VIPER VENOMNegativeNormal [facility]k HospitalComment on above:Performed By: #### PHOS #### [facility] ([facility]) [address] [place] [address] VIRFACTOR 2 ACTIVITYon [id number] 2 ACTIVITYF2 FACTOR 2 ACTIVITY CancelledNormalProMedica [facility]k HospitalComment on above:Order Comment: test should be prothrombin [id number] 5 ACTIVITYon 03-11-5489NRVLKO 5 ACTIVITY F5 FACTOR 5 ACTIVITY CancelledNormalProUc Health HospitalComment on above: Order Comment: test should be factor 5 leidenHOMOCYSTEINE, PLASMAon 10-19-2024 LSZJOKUQXORN98.25 umol/LNormal3.36-20.44ProTrinity Health System West CampusComment on above:Performed By: #### MG #### [facility] ([facility]) [address] [place] [address] VIRLIPID PROFILEon 03-35-0900Gquwtejfdby [Mass/Vol]118 mg/dLLow 150-200ProUc Health HospitalComment on above:Order Comment: fastingPerformed By: #### MG #### [facility] ([facility]) [address] [place] [address] VIRCholesterol in HDL [Mass/Vol]41 mg/dLNormal>39ProTrinity Health System West CampusComment on above:Order Comment: fastingResult Comment: HDL <40 mg/dL - High Risk HDL > or = 40mg/dL- Desirable HDL >60 mg/dL - Negative RiskPerformed By: #### MG #### [facility] ([facility]) [address] [place] [address] VIRCholesterol in LDL [Mass/Vol]67 mg/dLNormal<130ProTrinity Health System West CampusComment on above:Order Comment: fastingResult Comment: LDL <100 mg/dL - Desirable LDL >160 mg/dL - High RiskPerformed By: #### MG #### [facility] ([facility]) [address] [place] [address] VIRCHOLESTEROL:HDL2.1Lotcua9.0-5.0Pro[facility] Comment on above:Order Comment: fastingPerformed By: #### MG #### [facility] ([facility]) [address] [place] [address] VIRTriglyceride [Mass/Vol]52 mg/rJWhjgxx76-662CsaBmcehp [place] HospitalComment on above:Order Comment: fastingPerformed By: #### MG #### [facility] ([facility]) [address] [place] [address] VIRVERY LOW CRYXCSUMODY34 mg/dLNormal0-30ProTrinity Health System West CampusComment on above:Order Comment: fastingPerformed By: #### MG #### [facility] ([facility]) [address] [place] [address] VIRPROTEIN S AG, FREE W/ REFLEXon [id number] S AG, FREE W/ REFLEXPSAGTF PROTEIN S AG, FREE W/ REFLEX CancelledNormalProRegional Medical CenterSIDE GLUCOSEon 00-69-7067Rrgrfys [Mass/Vol]107 mg/iNAeaw57-35 [facility] Medical CenterComment on above:Performed By: #### MG #### [facility] ([facility]) [address] [place] [address] VIRGlucose [Mass/Vol]84 mg/tHBcjcyd33-23XdfQbaxtj [place] HospitalComment on above:Performed By: #### CBC #### [facility] ([facility]) [address] [place] [address] VIRCBC WITH AUTO DIFFERENTIALon 87-99-8437JCBKELCUS ABSOLUTE COUNT (10*3/UL) BY AUTOMATED COUNT0.0 10*3/uLNormal0.0-0.2[facility] on above:Performed By: #### CBCA #### [facility] ([facility]) [address] [place] [address] VIRBASOPHILS RELATIVE PERCENT BY AUTOMATED COUNT0.1 %Normal [facility] Medical CenterComment on above:Performed By: #### CBCA #### [facility] ([facility]) [address] [place] [address] VIRCELLAVISION DIFFERENTIAL TYPEAUTOMATED DIFFERENTIALNormal [facility] Medical CenterComment on above:Performed By: #### CBCA #### [facility] ([facility]) [address] [place] [address] VIREosinophils (Bld) [#/Vol]0.3 10*3/uLNormal0.0-0.4Pro[facility] HospitalComment on above:Performed By: #### CBCA #### [facility] ([facility]) [address] [place] [address] VIREOSINOPHILS RELATIVE PERCENT BY AUTOMATED COUNT2.6 %Normal ProMat[facility]era [facility] HospitalComment on above:Performed By: #### CBCA #### [facility] ([facility]) [address] [place] [address] VIRErythrocyte distribution width (RBC) [Ratio]13.3 %Normal 11.5-15Pro[facility] HospitalComment on above:Performed By: #### CBCA #### [facility] ([facility]) [address] [place] [address] VIRHematocrit (Bld) [Volume fraction]40.8 %Tqearz73-05WutOnaarm [facility] HospitalComment on above:Performed By: #### CBCA #### [facility] ([facility]) [address] [place] [address] VIRHemoglobin (Bld) [Mass/Vol]14.0 g/xVLvkela09.7-15.5Pro[facility] HospitalComment on above:Performed By: #### CBCA #### [facility] ([facility]) [address] [place] [address] VIRLYMPHOCYTES ABSOLUTE COUNT (10*3/UL) BY AUTOMATED COUNT2.7 10*3/uLNormal1.0-3.5Pro[facility] HospitalComment on above:Performed By: #### CBCA #### [facility] ([facility]) [address] [place] [address] VIRLYMPHOCYTES RELATIVE PERCENT BY AUTOMATED COUNT22.2 %Normal [facility] HospitalComment on above:Performed By: #### CBCA #### [facility] ([facility]) [address] [place] [address] VIRMCH (RBC) [Entitic mass]29.4 kbFihbos96-80IfrJxkbxz Lopez HospitalComment on above:Performed By: #### CBCA #### [facility] ([facility]) [address] [place] [address] VIRMCHC (RBC) [Mass/Vol]34.2 g/mTGsmrqz50-41IzgGowmws Lopez HospitalComment on above:Performed By: #### CBCA #### [facility] ([facility]) [address] [place] [address] VIRMCV (RBC) [Entitic vol]86 lSYdjoze65-894HwoHvsfvk Lopez HospitalComment on above:Performed By: #### CBCA #### [facility] ([facility]) [address] [place] [address] VIRMONOCYTES ABSOLUTE COUNT (10*3/UL) BY AUTOMATED COUNT0.6 10*3/uLNormal0.0-0.9Pro[facility] HospitalComment on above:Performed By: #### CBCA #### [facility] ([facility]) [address] [place] [address] VIRMONOCYTES RELATIVE PERCENT BY AUTOMATED COUNT5.2 %Normal [facility] HospitalComment on above:Performed By: #### CBCA #### [facility] ([facility]) [address] [place] [address] VIRNEUTROPHILS ABSOLUTE COUNT BY AUTOMATED COUNT8.4 10*3/uLHigh 1.5-6.6Pro[facility] Lopez HospitalComment on above:Performed By: #### CBCA #### [facility] ([facility]) [address] [place] [address] VIRNEUTROPHILS RELATIVE PERCENT BY AUTOMATED COUNT69.9 %Normal [facility] HospitalComment on above:Performed By: #### CBCA #### [facility] ([facility]) [address] [place] [address] VIRPlatelet mean volume (Bld) [Entitic vol]7.9 fLNormal7-12 [facility] HospitalComment on above:Performed By: #### CBCA #### [facility] ([facility]) [address] [place] [address] VIRPlatelets (Bld) [#/Vol]319 10*3/aSFpxroh001-819VylHxwcpu [facility] HospitalComment on above:Performed By: #### CBCA #### [facility] ([facility]) [address] [place] [address] VIRRBC COUNT4.74 X10E12/LNormal3.8-5.2PA[facility] Comment on above:Performed By: #### CBCA #### [facility] ([facility]) [address] [place] [address] VIRWBC (Bld) [#/Vol]12.0 10*3/uLHigh4-11Pro[facility] HospitalComment on above:Performed By: #### CBCA #### [facility] ([facility]) [address] [place] [address] VIRCOMPREHENSIVE METABOLIC PANELon 10-94-8431Krehcno [Mass/Vol] 4.1 g/dLNormal3.2-5.3ProMedMer[facility] HospitalComment on above:Performed By: #### CBC #### [facility] ([facility]) [address] [place] [address] VIRALP [Catalytic activity/Vol]89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 Registration Complete 09/12/2024 15:18:52 09/12/2024 15:21:37 09/12/2024 15:30:12 Bed Assign Complete 09/12/2024 15:21:37 09/12/2024 15:21:37 09/12/2024 15:21:37 RN Exam Complete 09/12/2024 15:21:37 09/12/2024 15:41:03 09/12/2024 15:41:03 EKG Cancel 09/12/2024 15:27:41 09/12/2024 15:28:13 Meds Admin Complete 09/12/2024 15:27:41 09/12/2024 15:35:02 Pending Labs Complete 09/12/2024 15:27:41 09/12/2024 17:08:33 Lab Complete 09/12/2024 15:27:41 09/12/2024 16:02:53 Reg Complete Request 09/12/2024 15:30:12 Reg Bed Request Complete 09/12/2024 15:30:12 09/12/2024 15:30:12 09/12/2024 15:30:12 Pending Labs Complete 09/12/2024 15:38:20 09/12/2024 15:38:20 09/12/2024 16:02:53 Lab Complete 09/12/2024 15:38:20 09/12/2024 15:38:20 09/12/2024 16:02:53 Pending Labs Inlab 09/12/2024 17:08:34 09/12/2024 17:08:34 Lab Inlab 09/12/2024 17:08:34 09/12/2024 17:08:34 Meds Admin Complete 09/12/2024 17:21:18 09/12/2024 17:28:20 Discharge Complete 09/12/2024 18:14:26 09/12/2024 18:20:24 09/12/2024 18:20:24 Transfer Complete 09/12/2024 18:20:24 09/12/2024 18:20:24 09/12/2024 18:20:24 ADDRESS: [address] [place] [phone] PHYS DOC NOTES: MEDICAL INFORMATION: Prescriptions Given: New Medications [facility]/pharmacy #[id number], [address], [place] [id number], [phone] cephalexin (Keflex 500 mg Cap) 1 Capsules By Mouth every 6 hours for 7 Days. Refills: 0. Medications to Continue Taking That Have Changed [facility]/pharmacy #[id number], [address], [place] [id number], [phone] START: ondansetron (Zofran ODT 4 mg Tab-Dis) 1 Tablets By Mouth every 6 hours as needed Nausea/Vomiting. Refills: 0. Other Medications START: ondansetron (Zofran ODT 4 mg Tab-Dis) 1 Tablets By Mouth every 8 hours as needed Nausea/Vomiting. Refills: 0. Medications to Continue with No Changes Other Medications cyclobenzaprine (cyclobenzaprine 10 mg Tab) 1 Tablets By Mouth 3 times a day as needed for spasm. Refills: 0. labetalol multivitamin every day. naproxen (naproxen 500 mg Tab) 1 Tablets By Mouth 2 times a day. Take one tab by mouth two times a day. Refills: 0. PATIENT EDUCATION INFORMATION: Instructions: Acute Kidney Injury, Adult; Urinary Tract Infection, Adult; Diarrhea, Adult; Nausea and Vomiting, Adult; Abdominal Pain, Adult Follow up: With: Address: When: Lacey Felix [address] [facility], [facility], [facility] [address] [place] [address] [facility] (1) In 3 days 09/15/2024 Comments: Make sure to follow-up with Dr. Felix for repeat of your blood work next week as your kidney function was slightly down. Return to the emergency room if your vomiting recurs, fever, abdominal pain gets worse or any new symptoms. DIAGNOSIS: 1:Vomiting and diarrhea; 2:Abdominal pain; 3:Urinary tract infection; 4:Acute kidney injury; Diarrhea, unspecifiedNormalFisher Harlan Medical CenterED Note-Physicianon [id number] Note-PhysicianED Note-Physician Basic Information Time Seen: Danyell Reeves M.D. 09/12/2024 15:18 Chief Complaint pt states she has been vomiting since last night with diarrhea, no recent ATB use. pt has cramping sensation in abdomin. No fevers, but has cold chills. no urinary s/s. History of Present Illness The patient is a 29-year-old female who presented to the emergency room with vomiting diarrhea. The patient states her symptoms started last night. The patient states she has not been able to keep anything down. She denies any vomiting blood. The patient reports loose green stool. Denies any black or bloody stool. The patient states she has been having chills and sweating. She denies any fever. The patient states she developed abdominal pain after the vomiting and diarrhea. She described as cramping. The cramping is generalized. The patient states she feels dizzy when she is standing up. The patient denies any chest pain. She denies any shortness of breath. The patient denies any r ecent traveling. She denies any bad food. She denies being on antibiotic recently. The patient denies any burning with urination or frequency with urination. The patient denies any other associated symptoms. Review of Systems Additional ROS info: Except as noted in the above Review of Systems and in the History of Present Illness all other systems have been reviewed and are negative or noncontributory. Physical Exam Vitals & Measurements T: 37.8 ???C(Oral) HR: 79(Monitored) RR: 16 BP: 125/98 SpO2: 98% HT: 126 cm WT: 109.6 kg BMI: 69.04 General: alert, no acute distress Skin: warm, dry Head: no trauma, normocephalic Neck: Trachea midline, no tenderness, supple Eye: normal conjunctiva, sclera clear, PERRL, EOMI, vision unchanged ENMT: Oral mucosa moist, no pharyngeal erythema or exudate Cardiovascular: regular rate and rhythm Respiratory: Lungs CTA, respirations non labored, breath sounds equal Gastrointestinal: soft, non distended, no tenderness, no guarding Extremities: no deformity, no trauma Neurological: Alert and oriented, speech normal, no focal neuro deficits Psychiatric: cooperative, affect appropriate for age Medical Decision Making MEDICAL DECISION MAKING Number and Complexity of Problems Differential Diagnosis: [] [facility] Data External documents reviewed: [] My EKG interpretation: [] My CT interpretation: [] My X-ray interpretation: [] My Ultrasound interpretation: [] Decision rules/scores evaluated: [] Discussed with: [] Treatment and Disposition ED Course: The patient presented with vomiting diarrhea and abdominal pain. More likely her symptoms are due to viral gastroenteritis. Blood work reviewed. White count is normal. Her creatinine is slightly increased to 1.4. The urine shows some infection. The patient was given 2 L of normal saline antiemetic Bentyl Pepcid and her symptoms improved. The patient was able to tolerate p.o. in the emergency room. She was given 1 g of Rocephin for the urinary tract infection. Will discharge patient home with prescription for Keflex and Zofran. She will follow-up with primary care. She was instructed follow-up primary care for repeat of her renal function next week. She is instructed to return to the emergency room if her vomiting recurs, fever, abdominal pain recurs or any new symptoms. Shared decision making: [] Code status: [] Assessment/Plan 1. Vomiting and diarrhea (R11.10: Vomiting, unspecified) 2. Abdominal pain (R10.9: Unspecified abdominal pain) 3. Urinary tract infection (N39.0: Urinary tract infection, site not specified) Diarrhea, unspecified (R19.7: Diarrhea, unspecified) Orders: ceftriaxone + Sodium Chloride 0.9% intravenous solution 50 mL, 1,000 mg = 1 EA, Injection, IV Piggyback, Once, Stop date 09/12/24 17:21:00 EDT, STAT, Start date 09/12/24 17:21:00 EDT, 100 mL/hr, Infuse over 30 minute(s) cephalexin, 500 mg = 1 cap(s), Oral, q6hr, X 7 day(s), # 28 cap(s), Refills(s) 0, Pharmacy: [facility]/pharmacy #[id number], 126, cm, 09/12/24 15:25:00 EDT, Height/Length Dosing, 109.6, kg, 09/12/24 15:25:00 EDT,Weight Dosing dicyclomine, 20 mg = 2 mL, Injection, IntraMuscular, Once, Stop date 09/12/24 15:27:00 EDT, STAT, Start date 09/12/24 15:27:00 EDT, 09/12/24 15:27:00 EDT famotidine, 20 mg = 2 mL, Soln-IV, IV Push, Once, Stop date 09/12/24 15:27:00 EDT, STAT, Start date09/12/24 15:27:00 EDT, 09/12/24 15:27:00 EDT ondansetron, 4 mg = 2 mL, Injection, IV Push, Once, Stop date 09/12/24 15:27:00 EDT, STAT, Start date 09/12/24 15:27:00 EDT, 09/12/24 15:27:00 EDT ondansetron, 4 mg = 1 tab(s), Oral, q6hr, PRN Nausea/Vomiting, # 20 tab(s), Refills(s) 0, Pharmacy:[facility]/pharmacy #[id number], 126, cm, 09/12/24 15:25:00 EDT, Height/Length Dosing, 109.6, kg, 09/12/24 15:25:00 EDT, Weight Dosing Sodium Chloride 0.9% intravenous solution, 2,000 mL, Soln-IV, IV, Once, Stop date 09/12/24 15:27:00EDT, STAT, Start date 09/12/24 15:27:00 EDT, Infuse over 61, minute(s) (more content not included)...[facility] Comment on above:Result Comment: Electronically Signed By: Danyell Reeves M.D.\.br\Date and Time Signed: 09/12/2517:20 EDTED Patient Summaryon [id number] Patient SummaryED Patient Summary [place] [address] Patient Discharge Instructions Person Information Name: TOM KOVACS Age: 29 Years Arrival Date: 09/12/2024 15:15:14 Discharge Diagnosis: 1:Vomiting and diarrhea; 2:Abdominal pain; 3:Urinary tract infection; 4:Acute kidney injury; Diarrhea, unspecified Primary Care Physician: NONE, XXXX Provider Information Primary Provider: Danyell Reeves M.D. Advanced Medical Insurance Clerk:None The exam and treatment you received in the Emergency Department were for an urgent problem and are not intended as complete care. It is important that you follow up with a doctor, nurse practitioner,or physician???s procurement assistant for ongoing care. If your symptoms become worse or you do not improve asexpected and you are unable to reach your usual health care provider, you should return to the Emergency Department. We are available 24 hours a day. TOM KOVACS has been given the following list of patient education materials, prescriptionsand follow-up instructions: Follow-up Instructions: With: Address: When: Lacey Felix [facility] [place] [address], [address] [place] [address] Business (1) In 3 days 09/15/2024 Comments: Make sure to follow-up with Dr. Felix for repeat of your blood work next week as your kidney function was slightly down. Return to the emergency room if your vomiting recurs, fever, abdominal pain gets worse or any new symptoms. In the event that this physician does not participate in your insurance network, please consult with your insurance company to find a nearby participating provider. Patient Education Materials: Acute Kidney Injury, Adult; Urinary Tract Infection, Adult; Diarrhea, Adult; Nausea and Vomiting, Adult; Abdominal Pain, Adult A MESSAGE TO ALL PATIENTS REGARDING OPIOIDS PRESCRIPTION OPIOIDS: WHAT YOU NEED TO KNOW Prescription opioids can be used to help relieve guyifgal-tx-yyzogo pain and are often prescribed following a surgery or injury, or for certain health conditions. These medications can be an important part of the treatment but also come with serious risks. It is important to work with your healthcare provider to make sure you are getting the safest, most effective care. WHAT ARE THE RISKS AND SIDE EFFECTS OF OPIOID USE? Prescription opioids carry serious risks of addiction and overdose, especially with prolonged use. An opioid overdose, often marked by slowed breathing, can cause sudden . The use of prescription opioids can have a number of side effects as well, even when taken as directed: ??? Tolerance???meaning you might need to take more of the medication for the same pain relief ??? Physical dependence???meaning you have symptoms of withdrawal when a medication is stopped ??? Increased sensitivity to pain ??? Constipation ??? Nausea, vomiting, and dry mouth ??? Sleepiness and dizziness ??? Confusion ??? Depression ??? Low levels of testosterone that can result in lower sex drive, energy, and strength ??? Itching and sweating RISKS ARE GREATER WITH: ??? History of drug misuse, substance use disorder, or overdose ??? Mental health conditions (such as depression or anxiety) ??? Sleep apnea ??? Older age (65 years and older) ??? Avoid alcohol while taking prescription opioids. Also, unless specifically advised by your health care provider, medications to avoid include: ??? Benzodiazepines (such as Xanax or Valium) ??? Muscle relaxants (such as Soma or Flexeril) ??? Hypnotics (such as Ambien or Lunesta) ??? Other prescription opioids KNOW YOUR OPTIONS Talk to your health care provider about ways to manage your pain that don???t involve prescription opioids. Some of these options may actually work better and have fewer risks and side effects. Options may include: ??? Pain relievers such as acetaminophen, ibuprofen, and naproxen ??? Some medication that are also used for depression or seizures ??? Physical therapy and exercise ??? Cognitive behavioral therapy, a psychological, goal-directed approach, in which patients learn how to modify physical, behavioral, and emotional triggers of pain and stress. IF YOU ARE PRESCRIBED OPIOIDS FOR PAIN: ??? Never take opioids in greater amounts or more often than prescribed. ??? Follow up with your primary health care provider. o Work together to create a plan on how to manage your pain. o Talk about ways to help manage your pain that don???t involve prescription opioids. o Talk about any and all concerns and side effects. ??? Help prevent misuse and abuse o Never sell or share prescription opioids. o Never use another person???s prescription opioids. ??? Store prescription opioids in a secure place and out of reach of others (this may include visitors, children, friends, and family). ??? Saf (more content not included)...[facility] HEMATOLOGYOrdered By: SYSTEM SYSTEM on 60-79-5768Yvwreobbj/100 WBC (Bld)0.1 % Normal0.0 - 2.0 %Remisol HemeBasophils/Leukocytes Auto (Bld) [Pure # fraction] 0.0 E9/LNormal0.0 - 0.2 E9/LRemisol HemeEosinophils (Bld) [#/Vol]0.0 E9/LNormal 0.0 - 0.5 E9/LRemisol HemeEosinophils/100 WBC (Bld)0.4 %Normal0.0 - 8.0 %Remisol HemeErythrocyte distribution width (RBC) [Ratio]13.7 %Xxvurl28.9 - 14.2 % Remisol HemeHematocrit (Bld) [Volume fraction]41.4 %Eynnai77.0 - 46.0 %Remisol HemeHemoglobin (Bld) [Mass/Vol]14.5 g/xILofmsn30.0 - 16.0 gm/dLRemisol Heme Lymphocytes (Bld) [#/Vol]0.7 E9/LLow1.0 - 4.0 E9/LRemisol HemeLymphocytes/100 WBC (Bld)6.9 %Low14.0 - 50.0 %Remisol HemeMCH (RBC) [Entitic mass]31.0 pgNormal 27.0 - 34.0 pgRemisol HemeMCHC (RBC) [Mass/Vol]35.1 g/uQLfvwqe46.4 - 36.0 gm/dL Remisol HemeMCV (RBC) [Entitic vol]88.3 mSZkhaxm75.0 - 100.0 fLRemisol Heme Monocytes (Bld) [#/Vol]0.3 E9/LNormal0.2 - 1.0 E9/LRemisol HemeMonocytes/100 WBC (Bld)2.8 %Low4.0 - 14.0 %Remisol HemeNeutrophils (Bld) [#/Vol]9.2 E9/LHigh2.0 - 7.5 E9/LRemisol HemeNeutrophils/100 WBC (Bld)89.8 %High36.0 - 75.0 %Remisol HemePlatelet mean volume (Bld) [Entitic vol]7.8 fLNormal6.4 - 10.8 fLRemisol HemePlatelets (Bld) [#/Vol]276.0 E9/SBqsyau152.0 - 500.0 E9/LRemisol HemeRBC (Bld) [#/Vol]4.7 E12/LNormal4.3 - 5.9 E12/LRemisol HemeWBC corrected for nucl RBC Auto (Bld) [#/Vol]10.2 E9/LNormal4.0 - 11.0 E9/LRemisol HemeHep Func Panelon 28-06-8051Lmrttzd [Mass/Vol]3.9 g/dLNormal3.3-5.0[facility] Comment on above:Performed By: #### [id number] #### Amado [facility] [address] [place], [place] [address]Gnhfiog/Globulin [Mass ratio]1.1 {ratio}Normal1.1-2.2FProvidence HospitalComment on above:Performed By: #### [id number] #### Amado [facility] [address] [place] [address], [place] [address]Jzi Phos77 Int._Unit/NMepfse09-19ZdrdwvTrinity Health System [facility] Comment on above:Performed By: #### [id number] #### [facility] [address] [place] [address], [place] [address]GHE65 Int._Unit/LNormal6-46[facility] CenterComment on above:Performed By: #### [id number] #### [facility] [address] [place] [address], [place] [address]CEJ82 Int._Unit/LNormal5-43[facility] CenterComment on above:Performed By: #### [id number] #### [facility] [address], [place] [address]Skhj Direct0.1 mg/dLNormal0.0-0.4FProvidence Hospital Comment on above:Performed By: #### [id number] #### [facility] [address], [place] [address]Opjt Indirect0.7 mg/dLNormal0.1-0.9[facility] Comment on above:Performed By: #### [id number] #### [facility] [address], [place] [address]Apki Total0.8 mg/dLNormal0.0-1.1FProvidence Hospital Comment on above:Performed By: #### [id number] #### [facility] [address] [place] [address], [place] [address]Emwijtwh (S) [Mass/Vol]3.6 g/dLNormal1.4-4.0[facility] CenterComment on above:Performed By: #### [id number] #### [facility] [address], [place] [address]Civthob [Mass/Vol]7.5 g/dLNormal6.0-7.8[facility] CenterComment on above:Performed By: #### [id number] #### Aneudy [facility] [address] [place] [address] [place], [place] [address]Mzfehv Levelon 63-50-8301Ymavea Lvl18 unit/GBevowd46-53RohpuhTrinity Health System [facility] City Medical CenterComment on above:Performed By: #### [id number] #### Aneudy [facility] [address], [place] [address]DI & PTTon 32-48-2456WLY Coag (PPP) [Relative time]1.04 {INR} Invalid Interpretation CodeTrinity Health System Twin City Medical CenterComment on above:Result Comment: INR results are specifically intended to assess patients stabilized on long-term Anticoagulation therapy suggested INR???s ???Less Intensive Anticoagulation??? 2.0 ??? 3.0 Conventional Range 3.0 ??? 4.5Performed By: #### [id number] #### [facility] [address], [place] [address]XZ62.7 second(s)Normal9.4-12.5FProvidence Hospital Comment on above:Result Comment: 15 days - 4 weeks 1 - 5 months 6 -11 months 1 ??? 5 years 6 ??? 10 years 11 -17 years Mean: 11.2 (9.5 ??? 12.6) Mean: 11.0 (9.7 ??? 12.8) Mean: 11.0 (9.8 ??? 13.0) Mean: 11.3 (9.9 ??? 13.4) Mean: 11.7 (10.0 ??? 14.6) Mean: 11.8 (10.0 - 14.1) Pediatric Reference ranges were obtained from a study by Ridge Fritz et al. prepared from 1437 samples obtained at 7 different centers using the same coagulation reagent and instrumentation as [facility]. Currently there are no coagulation studies available worldwide for children to 14 days, andno normal ranges.Performed By: #### [id number] #### Amado [facility] [address] [place] [address], [place] [address]SLZ18.8 second(s)Moyglb38.1-36.5FProvidence Hospital Comment on above:Result Comment: Parameter 15 days - 4 weeks 1 - 5 months 6 - 11 months 1 - 5 years 6 - 10 years 11 - 17 years PTT Mean: 35.4 (27.6-45.6) Mean: 33.5 (24.8-40.7) Mean: 32.4 (25.1-40.7) Mean: 31.6 (24.0-39.2) Mean: 31.6 (26.9-38.7) Mean: 31.0 (24.6-38.4) Pediatric Reference ranges were obtained from a study by Ridge Fritz et al. prepared from 1437 samples obtained at 7 different centers using the same coagulation reagent and instrumentation as [facility]. Currently there are no coagulation studies available worldwide for children to 14 days, andno normal ranges. Heparin therapeutic range (represented by Anti-Factor Xa activity of 0.2 - 0.4 U/mL) corresponds to PTT of 56.6 - 109.0 sec.Performed By: #### [id number] #### [facility] [address] [place], [place] [address]JNKOVXIDJiwgrta By: Ambreen York on 88-17-0053Tuxx HCG ( test) QlNegative (09/12/24 3:25 PM)NormalDRUMRIGHT REGION[facility] Man SeroUA with Cult Rflxon 77-90-2148WO Hyal Cast see commentInvalid Interpretation Code0-3FProvidence HospitalComment on above:Result Comment: No casts seen/initially reported 0-3 in error. Test results were corrected for hyaline casts.Performed By: #### [id number] #### [facility] [address] [place] [address], [place] [address]Tqjri (U)Light-YellowNormalYellowTrinity Health System [facility] Comment on above:Result Comment: Microscopic readings are only performed on those samples that meet specific criteria set forth by [facility].Performed By: #### [id number] #### [facility] [address] [place] [address], [place] [address]Eqjpsrr (U) [Mass/Vol]NegativeNormalNegativeTrinity Health System [facility] City Medical CenterComment on above:Performed By: #### [id number] #### Amado [facility] [address] [place] [address], [place] [address]Oyqghjl Ql (U)TraceAbnormalNegProvidence Hospital Comment on above:Performed By: #### [id number] #### [facility] [address] [place] [address], [place] [address]WU BloodNegativeNormalNegativeTr[facility] Comment on above:Performed By: #### [id number] #### [facility] [address], [place] [address]DP Amorph CrysPresentAbnormalTrinity Health System [facility] City Medical CenterComment on above:Performed By: #### [id number] #### [facility] [address], [place] [address]OD Bacteria4+ /HPFAbnormalTraceTrinity Health System [facility] Comment on above:Performed By: #### [id number] #### [facility] [address] [place] [address], [place] [address]EC ClarityTurbidAbnormalCleSt. Charles HospitalComment on above:Performed By: #### [id number] #### [facility] [address], [place] [address]CX Hyal Xszh0-1Auvdnw2-3Aljyci [facility] MarylandComment on above:Performed By: #### [id number] #### [facility] [address] [place] [address], [place] [address]NI Leuk Est75 Shayy/uLAbnormalNegProvidence Hospital Comment on above:Performed By: #### [id number] #### [facility] [address], [place] [address]IX MucousTraceNormalWestern Reserve HospitalComment on above:Performed By: #### [id number] #### [facility] [address], [place] [address]JU Nitrite2+ mg/dLAbnormalNegProvidence Hospital Comment on above:Performed By: #### [id number] #### [facility] [address] [place] [address]XU pH6.0Invalid Interpretation Code5.0-9.0[facility] CenterComment on above:Performed By: #### [id number] #### [facility] [address] [place] [address]BX Protein1+ mg/dLAbnoalNegProvidence Hospital Comment on above:Performed By: #### [id number] #### [facility] [address] [place] [address]QQ Spec Grav1.015Invalid Interpretation Code1.005-1.030[facility] CenterComment on above:Performed By: #### [id number] #### [facility] [address] [place] [address]KU Squam Epithelial5-8Invalid Interpretation CodeTrinity Health System Twin City Medical CenterComment on above:Performed By: #### [id number] #### [facility] [address] [place] [address]FS UrobilinogenNegativeNormalNegProvidence HospitalComment on above:Performed By: #### [id number] #### [facility] [address] [place] [address]AH WWG1-79Bifblmri8-5Rsnntu [facility] MarylandComment on above:Performed By: #### [id number] #### [facility] [address] [place] [address]Hunzhpewuiau (U) [Mass/Vol]NegativeNormalNegativeTrinity Health System [facility] City Medical CenterComment on above:Performed By: #### [id number] #### [facility] [address] [place] [address]ZS Spec DescClean CatchNormalTrinity Health System [facility] City Medical CenterComment on above:Performed By: #### [id number] #### [facility] [address] [place] [address]BXAJXUWPLRLacwusz By: SYSTEM SYSTEM on 22-23-6592Ryrctduv Auto Ql (U)4+ /HPFInvalid Interpretation CodeTrace/HPFFT UA Auto SSBilirubin Ql (U) NegativeNormalNegativemg/dLFT UA Auto SSClarity (U)Turbid *ABN* (09/12/24 4:50 PM)Invalid Interpretation CodeClearFTMC UA Auto SSColor (U)Light- Yellow 2 (09/12/24 4:50 PM)NormalYellowFT UA Auto SSComment on above:Interpretive Data: Microscopic readings are only performed on those samples that meet specific criteria set forth by [facility].Crystals.amorphous Computer assisted Ql (U)Present graded/HPFInvalid Interpretation CodeFT UA Auto SSEpithelial cells.squamous Auto (Urine sed) [#/Area]5-8 graded/HPFInvalid Interpretation CodeFT UA Auto SSGlucose Ql (U)NegativeNormalNegativemg/dLFT UA Auto SSHemoglobin Auto test strip (U) [Mass/Vol]NegativeNormalNegativemg/dL [facility] UA Auto SSHyaline casts LM Ql (Urine sed)see commentInvalid Interpretation Code0-3FTMC UA Auto SSComment on above:Result Comment: No casts seen/initially reported 0-3 in error. Test results were corrected for hyaline casts.Ketones Auto test strip Ql (U) Trace mg/dLInvalid Interpretation CodeNegativemg/dLFTMC UA Auto SSLeukocyte esterase Auto test strip Ql (U)75 Shayy/uL Shayy/uLInvalid Interpretation Code NegativeLeu/uLFT UA Auto SSMucus Auto Ql (U)Trace graded/LPFNormal Negativegraded/LPFFTMC UA Auto SSNitrite Auto test strip Ql (U)2+ mg/dLInvalid Interpretation CodeNegativemg/dLFTMC UA Auto SSpH (U)6.0 *NA* (09/12/24 4:50 PM)Invalid Interpretation Code5.0 - 9.0FT UA Auto SSProtein Ql (U)1+ mg/dLInvalid Interpretation CodeNegativemg/dLFTMC UA Auto SSSpecific gravity (U) [Rel density]1.015 *NA* (09/12/24 4:50 PM)Invalid Interpretation Code1.005 - 1.030[facility] UA Auto SS Urobilinogen (U) [Mass/Vol]NegativeNormalNegativemg/dLDRUMRIGHT REGIONAL [facility] UA Auto SSWBC Auto (Urine sed) [#/Area]6-15 graded/HPFInvalid Interpretation Code0-5graded/HPFDRUMRIGHT REGIONAL HOSPITAL [facility] UA Auto SSURINALYSISOrdered By: Danyell Reeves on 44-58-3318MH Spec DescClean Catch (09/12/24 4:50 PM)NormalDRUMRIGHT REGIONAL HOSPITAL [facility] UA Auto SSeGFRon 84-22-2585tURZ84 mL/min/1.73 m2Low >=59[facility] CenterComment on above:Performed By: #### [id number] #### [facility] [address] [place] [address]QKD/Rhon 35-86-6101NZW/RhPositiveInvalid Interpretation Code [facility] CenterComment on above:Performed By: #### [id number] #### [facility] [address], [place] [address]DCO/Rh History Checkon 53-89-7258JSH/Rh History CheckType verified by second sNormalTrinity Health System Twin City Medical CenterComment on above:Performed By: #### [id number] #### [facility] [address]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 Final Pathologic Diagnosis 1. Left fallopian tube, excision: Complete cross-section of a fallopian tube with patent lumen identified. 2. Right fallopian tube, excision: Complete cross-section of a fallopian tube with patent lumen identified. Report Electronically Signed Out ssi/05/15/2024Herb Tovar M.D. Interpretation performed at [facility], [address] [place] [address], License number: [id number]. Clinical History Undesired fertility. Gross Description 1. Received in formalin, labeled FERMÍN, left fallopian tube is a 2.3 cm in length by 0.5 cm in diameter cylindrical soft tissue fragment. Both ends are blunted with no discrete fimbriated identified. Sectioning demonstrates a pinpoint lumen. Supervisor Speech sections are submitted in 1 cassette(1, ss, S25- 7780 -1, m8.1) 2. Received in formalin, labeled FERMÍN, right fallopian tube is a 4 cm in length by 0.5 cm indiameter cylindrical soft tissue fragment that is purple- gomez, smooth and glistening. Both ends areblunted with no discrete fimbriated identified. Sectioning demonstrates a pinpoint lumen. Supervisor Speech sections are submitted in 1 cassette. (1, ss, O96-1300 -2, m8.1) 05/10/2024GR Specimen(s) Received 1: Left fallopian tube 2: Right fallopian tube Fee Codes(s): 1; 24611 2; 19736T hCG Qualon 39-66-9791Hunq HCG ( test) QlNegativeNormalTrinity Health System Twin City Medical CenterComment on above:Performed By: #### [id number] #### [facility] [address] [place], [place] [address]ZZRky 23-67-0891Ablvo gap [Moles/Vol]9 mmol/LNormal6-16[facility] City Medical CenterComment on above:Performed By: #### [id number] #### [facility] [address] [place], [place] [address]Whtopmd [Mass/Vol]8.9 mg/dLNormal8.9-11.1Fisher Upmc Western MarylandComment on above:Performed By: #### [id number] #### [facility] [address] [place], [place] [address]Mqkfgpsx [Moles/Vol]107 mmol/LOivdco035-820OvqjjuTrinity Health System Twin City Medical CenterComment on above:Performed By: #### [id number] #### [facility] [address] [place], [place] [address]QJ2 [Moles/Vol]26 mmol/KLloknw32-65FuapweTrinity Health System [facility] Center Comment on above:Performed By: #### [id number] #### [facility] [address] [place], [place] [address]Fswghahbsw [Mass/Vol]1.5 mg/dLHigh0.5-1.3Fisher Upmc Western MarylandComment on above:Performed By: #### [id number] #### [facility] [address] [place], [place] [address]Fsqyhlu [Mass/Vol]135 mg/nNSiojlw59-711IanecbTrinity Health System Twin City Medical CenterComment on above:Performed By: #### [id number] #### [facility] [address] [place], [place] [address]Hdwsrlxbu [Moles/Vol]3.9 mmol/LNormal3.5-5.3Fisher Upmc Western MarylandComment on above:Performed By: #### [id number] #### [facility] [address] [place] [address]Oeuvss [Moles/Vol]138 mmol/HWycxvo393-894UgxdluTrinity Health System Twin City Medical CenterComment on above:Performed By: #### [id number] #### [facility] [address] [place] [address]Xatu nitrogen [Mass/Vol]17 mg/dLNormal5-21[facility] City Medical CenterComment on above:Performed By: #### [id number] #### [facility] [address] [place] [address]Qtkz nitrogen/Creatinine [Mass ratio]11 No GttdgUhjbfl71-47 [facility] Medical CenterComment on above:Performed By: #### [id number] #### [facility] [address] [place], [place] [address]KKB w/ Auto Diffon 83-40-4224Cwnoumgit/100 WBC (Bld)0.7 %Normal 0.0-2.0[facility] City Medical CenterComment on above:Performed By: #### [id number] #### [facility] [address] [place] [address]Evflohkro/Leukocytes Auto (Bld) [Pure # fraction]0.0 E9/LNormal 0.0-0.2FProvidence HospitalComment on above:Performed By: #### [id number] #### [facility] [address] [place] [address]Atobbnbijfg (Bld) [#/Vol]0.0 E9/LNormal0.0-0.5FProvidence HospitalComment on above:Performed By: #### [id number] #### [facility] [address] [place] [address]Pyuuvjwaxij/100 WBC (Bld)0.3 %Normal0.0-8.0[facility] Medical CenterComment on above:Performed By: #### [id number] #### [facility] [address] [place] [address]Dhjamysyzit distribution width (RBC) [Ratio]13.6 %Normal 10.9-14.2FProvidence HospitalComment on above:Performed By: #### [id number] #### [facility] [address] [place] [address]Bshmnoxbit (Bld) [Volume fraction]39.7 %Ogjkbw90.0-46.0[facility] Medical CenterComment on above:Performed By: #### [id number] #### [facility] [address] [place] [address]Banwqbssmf (Bld) [Mass/Vol]13.4 g/wDToqgni89.0-16.0[facility] Medical CenterComment on above:Performed By: #### [id number] #### [facility] [address] [place] [address]Owqizkltofo (Bld) [#/Vol]1.0 E9/LNormal1.0-4.0[facility] Medical CenterComment on above:Performed By: #### [id number] #### [facility] [address] [place] [address]Ljlabtsjpfi/100 WBC (Bld)23.9 %Lvflyq24.0-50.0[facility] Medical CenterComment on above:Performed By: #### [id number] #### [facility] [address] [place] [address]KMP (RBC) [Entitic mass]29.8 rcMdzrgm66.0-34.0[facility] Medical CenterComment on above:Performed By: #### [id number] #### [facility] [address] [place] [address]GAAW (RBC) [Mass/Vol]33.8 g/wKQkkgpi73.4-36.0[facility] Medical CenterComment on above:Performed By: #### [id number] #### [facility] [address] [place] [address]REV (RBC) [Entitic vol]88.2 fVMfwava88.0-100.0[facility] Medical CenterComment on above:Performed By: #### [id number] #### [facility] [address] [place] [address]Onryykizq (Bld) [#/Vol]0.3 E9/LNormal0.2-1.0[facility] City Medical CenterComment on above:Performed By: #### [id number] #### [facility] [address] [place] [address]Mqqkuvzbfcx (Bld) [#/Vol]3.0 E9/LNormal2.0-7.5FProvidence HospitalComment on above:Performed By: #### [id number] #### [facility] [address] [place] [address]Ilcpyichsmi/100 WBC (Bld)69.1 %Vjaivi02.0-75.0[facility] Medical CenterComment on above:Performed By: #### [id number] #### [facility] [address] [place] [address]Crzktpek429.0 E9/IRmcfpk182.0-500.0[facility] Comment on above:Performed By: #### [id number] #### [facility] [address] [place] [address]Mzjmujtm mean volume (Bld) [Entitic vol]7.7 fLNormal6.4-10.8 [facility] Medical CenterComment on above:Performed By: #### [id number] #### [facility] [address] [place], [place] [address]DXB (Bld) [#/Vol]4.5 E12/LNormal4.3-5.9[facility] Medical CenterComment on above:Performed By: #### [id number] #### [facility] [address] [place], [place] [address]UAI corrected for nucl RBC Auto (Bld) [#/Vol]4.3 E9/LNormal 4.0-11.0[facility] Medical CenterComment on above:Performed By: #### [id number] #### [facility] [address] [place] [address]ZPCIFLDSCBspnept By: SYSTEM SYSTEM on 93-87-7168Djuihhb [Mass/Vol]3.7 g/dLNormal3.3 - 5.0 gm/dLRemisol ChemAlbumin/Globulin [Mass ratio] 1.2 {ratio}Normal1.1 - 2.2Remisol ChemALP [Catalytic activity/Vol]63 [iU]/d Cqmnjd15 - 98 Int._Unit/LRemisol ChemALT No additional P-5'-P [Catalytic activity/Vol]9 [iU]/dNormal6 - 46 Int._Unit/LRemisol ChemAnion gap [Moles/Vol]9 mmol/LNormal6 - 16 mEq/LRemisol ChemAST [Catalytic activity/Vol]15 [iU]/dNormal5 - 43 Int._Unit/LRemisol ChemBilirubin [Mass/Vol]0.2 mg/dLNormal0.0 - 1.1 mg/dL Remisol ChemBilirubin.direct [Mass/Vol]0.0 mg/dLNormal0.0 - 0.4 mg/dLRemisol ChemBilirubin.indirect [Mass or moles/Vol]0.2 mg/dLNormal0.1 - 0.9 mg/dLRemisol ChemCalcium [Mass/Vol]8.9 mg/dLNormal8.9 - 11.1 mg/dLRemisol ChemChloride [Moles/Vol]107 mmol/DEnfaeh893 - 111 mmol/LRemisol ChemCO2 [Moles/Vol]26 mmol/L Yatjfm13 - 31 mmol/LRemisol ChemCreatinine [Mass/Vol]1.5 mg/dLHigh0.5 - 1.3 mg/dLRemisol FynqwDDS78 mL/min/1.73 m2Low>=59mL/min/1.73 a0Ojabzyz ChemGlobulin (S) [Mass/Vol]3.1 g/dLNormal1.4 - 4.0 gm/dLRemisol ChemGlucose [Mass/Vol]135 mg/mFQkephp69 - 199 mg/dLRemisol ChemLipase [Catalytic activity/Vol]23 U/LNormal 13 - 58 unit/LRemisol ChemPotassium [Moles/Vol]3.9 mmol/LNormal3.5 - 5.3 mmol/L Remisol ChemProtein [Mass/Vol]6.8 g/dLNormal6.0 - 7.8 gm/dLRemisol ChemSodium [Moles/Vol]138 mmol/IUtcswb151 - 145 mmol/LRemisol ChemUrea nitrogen [Mass/Vol] 17 mg/dLNormal5 - 21 mg/dLRemisol ChemUrea nitrogen/Creatinine [Mass ratio]11 mg/piPljkce33 - 20Remisol ChemED Clinical Summaryon [id number] Clinical SummaryED Clinical Summary [place] [address] ED Clinical Summary Person Information Name: TMO KOVACS [facility] Age: 28 Years : 1995 Sex: Female Language: French PCP: DIVINE HAUSER CNP Marital Status: Phone: [phone] Visit Id: Visit Reason: Fever; Diarrhea; Headache; DIZZY, FEVER, HEADACHE, DIARRHEA Speciality: Acuity: 3 Enc Type: Emergency Med Service: Emergency Arrival: 04/23/2024 20:16:52 Discharge: 04/23/2024 21:49:02 LOS: 000 01:33 Checkin: 04/23/2024 20:16:52 Checkout: 04/23/2024 21:49:02 Dispo Type: Home (Routine DC) EVENTS: Event Name Event Status Request Date/Time Start Date/Time Complete Date/Time Arrive Complete 04/23/2024 20:16:52 04/23/2024 20:16:52 04/23/2024 20:16:52 Document Home Meds Request 04/23/2024 20:16:52 Triage Complete 04/23/2024 20:16:52 04/23/2024 20:28:47 04/23/2024 20:28:47 Registration Complete 04/23/2024 20:20:43 04/23/2024 20:20:43 04/23/2024 20:20:43 Reg Complete Request 04/23/2024 20:20:43 Reg Bed Request Complete 04/23/2024 20:20:43 04/23/2024 20:20:43 04/23/2024 20:20:43 Bed Assign Complete 04/23/2024 20:33:22 04/23/2024 20:33:22 04/23/2024 20:33:22 Dr Exam Complete 04/23/2024 20:33:22 04/23/2024 20:35:05 04/23/2024 20:35:05 RN Exam Complete 04/23/2024 20:33:22 04/23/2024 21:07:49 04/23/2024 21:07:49 Registration Request 04/23/2024 20:35:05 Pending Labs Request 04/23/2024 20:53:55 Lab Complete 04/23/2024 20:53:55 04/23/2024 21:30:41 Meds Admin Complete 04/23/2024 20:53:55 04/23/2024 21:02:31 Swab Complete 04/23/2024 20:53:55 04/23/2024 21:18:47 Dr Exam Complete 04/23/2024 20:55:41 04/23/2024 20:55:41 04/23/2024 20:55:41 Pending Labs Complete 04/23/2024 21:03:31 04/23/2024 21:03:31 04/23/2024 21:30:41 Lab Complete 04/23/2024 21:03:31 04/23/2024 21:03:31 04/23/2024 21:30:41 Meds Admin Complete 04/23/2024 21:36:49 04/23/2024 21:44:09 Discharge Complete 04/23/2024 21:38:29 04/23/2024 21:53:08 04/23/2024 21:53:08 Transfer Complete 04/23/2024 21:53:08 04/23/2024 21:53:08 04/23/2024 21:53:08 ADDRESS: [address] [place] [phone] PHYS DOC NOTES: MEDICAL INFORMATION: Prescriptions Given: New Medications [id number], [address], [place] [id number], [phone] ondansetron (Zofran ODT 4 mg Tab-Dis) 1 Tablets By Mouth every 8 hours as needed Nausea/Vomiting. Refills: 0. Medications to Continue with No Changes Other Medications labetalol multivitamin every day. naproxen (naproxen 500 mg Tab) 1 Tablets By Mouth 2 times a day. Take one tab by mouth two times a day. Refills: 0. PATIENT EDUCATION INFORMATION: Instructions: Influenza, Adult, Rvld-bi-Huib Follow up: With: Address: When: DIVINE [address] [place], [place] [id number] Business (1) In 3 days 04/26/2024 Comments: Call Dr for diagnosis based follow up DIAGNOSIS: Influenza ANormalFisher Kiel Medical CenterED Note-Physicianon [id number] Note-PhysicianED Note-Physician Basic Information Time Seen: Mumtaz MCGINNIS, Efrem Angelo 04/23/2024 20:35 Chief Complaint pt to ED with c/o CRUZ and diarrhea for 3 days. unable to eat without having to go to bathroom immediatly. states fevers also. 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 History of Present Illness A 28-year-old female reports number department with complaints of headache and diarrhea for last 3 days. Reports vomiting as well. States that she feels very nauseous. Has not vomited recently. Reports anything she eats goes immediately through her was as diarrhea. Reports on and off fevers. Deniestaking any medications before arrival. Reports no allergies. Reports otherwise healthy. Reports currently on her period. Denies any urinary symptoms. Review of Systems No other aggravating or relieving factors no other associated symptoms no other prior treatments orcomplaints. Family: Reviewed and noncontributory Social: lives at home Review of systems negative unless otherwise specified in the HPI. Physical Exam Vitals & Measurements T: 36.9 ???C(Oral) HR: 62(Monitored) RR: 16 BP: 103/83 SpO2: 97% HT: 162 cm WT: 105.6 kg BMI: 40.24 General: The patient appears well and in no apparent distress. Patient is resting comfortably on bed. Afebrile Skin: Warm, dry, no pallor noted. Head: Normocephalic, atraumatic Neck: No JVD Eye: PERRLA, EOMI ENT: Moist mucus membranes Cardiovascular: Regular rate. normal peripheral perfusion Respiratory: No respiratory distress. no accessory muscle use. no obvious audible wheezing. Lung sounds clear to auscultation Chest Wall: no deformity Musculoskeletal: normal ROM, no deformity, no swelling GI: No obvious distention. Abdomen soft no real tenderness or guarding noted. Neurological: A&O. moves all extremities equal strength and symmetry Psychiatric: Cooperative and appropriate Medical Decision Making MEDICAL DECISION MAKING Number and Complexity of Problems Differential Diagnosis: [] [facility] Data External documents reviewed: [] My EKG interpretation: [] My CT interpretation: [] My X-ray interpretation: [] My Ultrasound interpretation: [] Decision rules/scores evaluated: [] Discussed with: [] Treatment and Disposition ED Course: a 28-year-old female reports emerged department with complaints of diarrhea, headache, and fevers. Reports has been going on for last 3 days. Reports nausea at this time. Reports has a hard time keeping anything down because he goes right through her. Exam the patient here is completely benign. Due to concerns we did do lab work as well as viral swabs. Patient did test positive for influenza A. Discussed with patient. Discussed supportive therapy. People with patient able to pass p.o. challenge here. Discharged home with Zofran. Follow-up with your primary care provider in 3 to 5 days. If symptoms worsen, do not improve, or new symptoms arise please report back to emergency department for further evaluation. The patient was understanding and agreeable to plan moving forward. Shared decision making: [] Code status: [] Assessment/Plan Influenza A (J10.1: Influenza due to other identified influenza virus with other respiratory manifestations) Orders: ondansetron, 12 mg = 3 tab(s), Tab-Dis, Oral, Once, Stop date 04/23/24 21:36:00 EST, STAT, Start date 04/23/24 21:36:00 EST, 04/23/24 21:36:00 EST ondansetron, 4 mg = 1 tab(s), Oral, q8hr, PRN Nausea/Vomiting, # 20 tab(s), Refills(s) 0, Pharmacy:[id number], 162, cm, 04/23/24 20:28:00 EST, Height/Length Dosing, 105.6, kg, 04/23/24 20:28:00 EST, Weight Dosing ondansetron, 4 mg = 1 tab(s), Tab-Dis, Oral, Once, Stop date 04/23/24 20:53:00 EST, STAT, Start date 04/23/24 20:53:00 EST, 04/23/24 20:53:00 EST Basic Metabolic Panel Beta hCG Qual CBC w/ Auto Diff eGFR Hepatic Function Panel Influenza A&B Ag Lipase Level UA with Cult Rflx Medications Administered Given ondansetron 4 mg Dis Tab, 12 mg, Oral ondansetron 4 mg Dis Tab, 4 mg, Oral Disposition Plan Patient Discharge Condition Stable Discharge Disposition to home Discharge Prescription List Prescriptions Zofran ODT 4 mg Tab-Dis, 4 mg= 1 tab(s), Oral, q8hr, PRN Follow-up With When Contact Information DIVINE HAUSER In 3 days 04/26/2024 EST [address] [place] [address]- Business (1) Additional Instructions: Call Dr for diagnosis based follow up Patient Education Influenza, Adult, Lais-pd-Zadf Attestation Patient seen and evaluated by the physician procurement assistant. Attending physician was present in the emergency department and supervised care. This visit was performed by both the physician and an APC. I performed all aspects of the MDM as documented. This report was transcribed using voice recognition software. Every effort was made to ensure accuracy, however, inadvertently computerized setter up mistakes may be present. Appropriate healthcare PPE was used in evaluating t (more content not included)...[facility]rick HospitalComment on above:Result Comment: Electronically Signed By: Efrem Pandya PA-C.\.br\Date and Time Signed: 04/23/2521:47 EST\.br\Electronically Co-Signed By: Osmar Duran DO\.br\Date and Time Co-Signed: 04/23/24 23:10 ESTED Patient Summaryon [id number] Patient SummaryED Patient Summary [address] [address] Patient Discharge Instructions Person Information Name: TOM KOVACS Age: 28 Years Arrival Date: 04/23/2024 20:16:52 Discharge Diagnosis: Influenza A Primary Care Physician: DIVINE HAUSER CNP Provider Information Primary Provider: Osmar Duran DO Advanced Medical Insurance Clerk:Efrem Pandya PA-C. The exam and treatment you received in the Emergency Department were for an urgent problem and are not intended as complete care. It is important that you follow up with a doctor, nurse practitioner,or physician???s procurement assistant for ongoing care. If your symptoms become worse or you do not improve asexpected and you are unable to reach your usual health care provider, you should return to the Emergency Department. We are available 24 hours a day. TOM KOVACS has been given the following list of patient education materials, prescriptionsand follow-up instructions: Follow-up Instructions: With: Address: When: DIVINE HAUSER [address] [place] [address] [place] [phone] Business (1) In 3 days 04/26/2024 Comments: Call Dr for diagnosis based follow up In the event that this physician does not participate in your insurance network, please consult with your insurance company to find a nearby participating provider. Patient Education Materials: Influenza, Adult, Slij-mz-Avmv A MESSAGE TO ALL PATIENTS REGARDING OPIOIDS PRESCRIPTION OPIOIDS: WHAT YOU NEED TO KNOW Prescription opioids can be used to help relieve vqzmrqih-tm-nzemfl pain and are often prescribed following a surgery or injury, or for certain health conditions. These medications can be an important part of the treatment but also come with serious risks. It is important to work with your healthcare provider to make sure you are getting the safest, most effective care. WHAT ARE THE RISKS AND SIDE EFFECTS OF OPIOID USE? Prescription opioids carry serious risks of addiction and overdose, especially with prolonged use. An opioid overdose, often marked by slowed breathing, can cause sudden . The use of prescription opioids can have a number of side effects as well, even when taken as directed: ??? Tolerance???meaning you might need to take more of the medication for the same pain relief ??? Physical dependence???meaning you have symptoms of withdrawal when a medication is stopped ??? Increased sensitivity to pain ??? Constipation ??? Nausea, vomiting, and dry mouth ??? Sleepiness and dizziness ??? Confusion ??? Depression ??? Low levels of testosterone that can result in lower sex drive, energy, and strength ??? Itching and sweating RISKS ARE GREATER WITH: ??? History of drug misuse, substance use disorder, or overdose ??? Mental health conditions (such as depression or anxiety) ??? Sleep apnea ??? Older age (65 years and older) ??? Avoid alcohol while taking prescription opioids. Also, unless specifically advised by your health care provider, medications to avoid include: ??? Benzodiazepines (such as Xanax or Valium) ??? Muscle relaxants (such as Soma or Flexeril) ??? Hypnotics (such as Ambien or Lunesta) ??? Other prescription opioids KNOW YOUR OPTIONS Talk to your health care provider about ways to manage your pain that don???t involve prescription opioids. Some of these options may actually work better and have fewer risks and side effects. Options may include: ??? Pain relievers such as acetaminophen, ibuprofen, and naproxen ??? Some medication that are also used for depression or seizures ??? Physical therapy and exercise ??? Cognitive behavioral therapy, a psychological, goal-directed approach, in which patients learn how to modify physical, behavioral, and emotional triggers of pain and stress. IF YOU ARE PRESCRIBED OPIOIDS FOR PAIN: ??? Never take opioids in greater amounts or more often than prescribed. ??? Follow up with your primary health care provider. o Work together to create a plan on how to manage your pain. o Talk about ways to help manage your pain that don???t involve prescription opioids. o Talk about any and all concerns and side effects. ??? Help prevent misuse and abuse o Never sell or share prescription opioids. o Never use another person???s prescription opioids. ??? Store prescription opioids in a secure place and out of reach of others (this may include visitors, children, friends, and family). ??? Safely dispose of unused prescription opioids: Find your community drug take-back program or your pharmacy mail-back program, or flush them down the toilet, following guidance from the Food and Drug Administration (www.fda.gov/Drugs/ResourcesForYou). ??? Visit www.cdc.gov/drugoverdose to learn about the risks of opioids abuse and overdose. ??? If you believe you (more content not included)...NormalTrinity Health System Twin City Medical CenterExtra Blueon 06-05-0605Uytn Collected PlasmaYesInvalid Interpretation Code [facility] CenterComment on above:Performed By: #### [id number] #### [facility] [address], [place] [address]DEODYJNEQXTzjpcwt By: SYSTEM SYSTEM on 70-53-0161Xzzfppcec/100 WBC (Bld)0.7 %Normal0.0 - 2.0 %Remisol HemeBasophils/Leukocytes Auto (Bld) [Pure # fraction]0.0 E9/LNormal0.0 - 0.2 E9/LRemisol HemeEosinophils (Bld) [#/Vol]0.0 E9/LNormal0.0 - 0.5 E9/LRemisol HemeEosinophils/100 WBC (Bld)0.3 %Normal0.0 - 8.0 %Remisol HemeErythrocyte distribution width (RBC) [Ratio]13.6 %Lfdryi62.9 - 14.2 %Remisol HemeHematocrit (Bld) [Volume fraction]39.7 %Wdffxe69.0 - 46.0 % Remisol HemeHemoglobin (Bld) [Mass/Vol]13.4 g/hGHcoetc55.0 - 16.0 gm/dLRemisol HemeLymphocytes (Bld) [#/Vol]1.0 E9/LNormal1.0 - 4.0 E9/LRemisol Heme Lymphocytes/100 WBC (Bld)23.9 %Yhhpfx91.0 - 50.0 %Remisol HemeMCH (RBC) [Entitic mass]29.8 hlIulpts31.0 - 34.0 pgRemisol HemeMCHC (RBC) [Mass/Vol]33.8 g/dL Wdmxuc57.4 - 36.0 gm/dLRemisol HemeMCV (RBC) [Entitic vol]88.2 bEGqzorq10.0 - 100.0 fLRemisol HemeMonocytes (Bld) [#/Vol]0.3 E9/LNormal0.2 - 1.0 E9/LRemisol HemeMonocytes/100 WBC (Bld)6.0 %Normal4.0 - 14.0 %Remisol HemeNeutrophils (Bld) [#/Vol]3.0 E9/LNormal2.0 - 7.5 E9/LRemisol HemeNeutrophils/100 WBC (Bld)69.1 % Uqnpkv51.0 - 75.0 %Remisol YctxMmefumqu783.0 E9/TLvzmae559.0 - 500.0 E9/LRemisol HemePlatelet mean volume (Bld) [Entitic vol]7.7 fLNormal6.4 - 10.8 fLRemisol HemeRBC (Bld) [#/Vol]4.5 E12/LNormal4.3 - 5.9 E12/LRemisol HemeWBC corrected for nucl RBC Auto (Bld) [#/Vol]4.3 E9/LNormal4.0 - 11.0 E9/LRemisol HemeHep Func Panelon 68-08-3107Uclrfrr [Mass/Vol]3.7 g/dLNormal3.3-5.0Tr[facility] City Medical CenterComment on above:Performed By: #### [id number] #### [facility] [address] [place], [place] [address]Eluswxi/Globulin (S) [Mass conc ratio]1.1Vdwvxa3.1-2.2FProvidence HospitalComment on above:Performed By: #### [id number] #### [facility] [address], [place] [address]TKI [Catalytic activity/Vol]63 Int._Unit/KZwpihw85-25ZgsoltTrinity Health System Twin City Medical CenterComment on above:Performed By: #### [id number] #### [facility] [address] [place], [place] [address]BAD No additional P-5'-P [Catalytic activity/Vol]9 Int._Unit/L Normal6-46[facility] CenterComment on above:Performed By: #### [id number] #### [facility] [address] [place] [address]MWK [Catalytic activity/Vol]15 Int._Unit/LNormal5-43[facility] Medical CenterComment on above:Performed By: #### [id number] #### [facility] [address] [place], [place] [address]Deshalmpj [Mass/Vol]0.2 mg/dLNormal0.0-1.1FProvidence HospitalComment on above:Performed By: #### [id number] #### [facility] [address] [place], [place] [address]Runbsojxr.direct [Mass/Vol]0.0 mg/dLNormal0.0-0.4FProvidence HospitalComment on above:Performed By: #### [id number] #### [facility] [address] [place], [place] [address]Ooqjwchiw.indirect [Mass or moles/Vol]0.2 mg/dLNormal0.1-0.9 [facility] CenterComment on above:Performed By: #### [id number] #### [facility] [address] [place], [place] [address]Xgydntmj (S) [Mass/Vol]3.1 g/dLNormal1.4-4.0[facility] Medical CenterComment on above:Performed By: #### [id number] #### [facility] [address] [place] [address]Hpvfara [Mass/Vol]6.8 g/dLNormal6.0-7.8[facility] Medical CenterComment on above:Performed By: #### [id number] #### [facility] [address] [place] [address]Sbpmvlqgl A&B Agon 67-49-2176Crtkidyqsb A AgPositiveAbnormal NegativeTrinity Health System Twin City Medical CenterComment on above:Performed By: #### [id number] #### [facility] [address] [place] [address]Liogqfkuea B AgNegativeNormalNegativeTrinity Health System Twin City Medical CenterComment on above:Result Comment: Test sensitivity and specificity vary for age group, specimen type, antigen types, and prevalence of disease. Test results must be evaluated in conjunction with other clinical data available to the physician. Individuals who received nasally administered Influenza A vaccine may havepositive test results up to 3 days after vaccination.Performed By: #### [id number] #### [facility] [address] [place] [address]Yyluuh Levelon 89-33-5653Umujps [Catalytic activity/Vol]23 U/L Lqiidn42-16WtgjqpTrinity Health System Twin City Medical CenterComment on above:Performed By: #### [id number] #### [facility] [address] [place] [address]XFSLR OTHER TESTSOrdered By: Carmencita Good on 04-23-2024 Influenzae A AgPositive *ABN* (04/23/24 9:02 PM)Invalid Interpretation CodeNegativeDRUMRIGHT REGIONAL [facility] – [place] Man SeroInfluenzae B Ag Negative 1 (04/23/24 9:02 PM)NormalNegativeDRUMRIGHT REGIONAL HOSPITAL – DRUMRIGHT Man SeroComment on above:Interpretive Data: Test sensitivity and specificity vary for age group, specimen type, antigen types, and prevalence of disease. Test results must be evaluated in conjunction with other clinical dataavailable to the physician. Individuals who received nasally administered Influenza A vaccine may have positive test results up to 3 days after vaccination.SEROLOGYOrdered By: Carmencita Good on 91-10-5000Nyui HCG ( test) QlNegative (04/23/24 8:59 PM)[facility] SeroeGFRon 49-08-4513mZHT26 mL/min/1.73 m2Low>=59 [facility] Medical CenterComment on above:Performed By: #### [id number] #### [facility] Laboratory [address], [place] [address]QBK AND AUTO DIFFon 91-93-3077SDFLUKCI BASOPHIL0.0 X10E9/L Normal0.0-0.2PMercy Health Allen HospitalComment on above:Performed By: #### CBC, BMP, 88628-6, 2776-1, UPCR, 2731-8, 02087-8 #### [facility] ([id number]) [address], [address] [place], [place] [address]TONJNYPG NEUTROPHIL6.7 X10E9/LHigh1.5-6.6ProSt. Luke'S Health – Memorial LufkinComment on above:Performed By: #### CBC, BMP, 10412-0, 2776-, UPCR, 2731-8, 87488-4 #### [facility] ([id number]) [address], [address] [place], [place] [address]Ecqmwjhyq/100 WBC (Bld)0.2 %NormalProSt. Luke'S Health – Memorial Lufkin Comment on above:Performed By: #### CBC, BMP, 54450-3, 2776-1, UPCR, 2731-8, 04209-8 #### [facility] ([id number]) [address], [address] [place], [place] [address]Yfelricazan (Bld) [#/Vol]0.0 10*3/uLNormal0.0-0.4ProMedica Flower HospitalComment on above:Performed By: #### CBC, BMP, 27089-2, 2776-1, UPCR, 2731-8, 81557-6 #### [facility] ([id number]) [address], [address] [place], [place] [address]Geadxbqbbcz/100 WBC (Bld)0.3 %NormalProMedica Flower Hospital Comment on above:Performed By: #### CBC, BMP, 44529-6, 2776-, UPCR, 2731-8, 64859-8 #### [facility] ([id number]) [address], [address] [place], [place] [address]Snrixbjzocg distribution width (RBC) [Ratio]13.8 %Normal 11.5-15.0ProMedica Flower HospitalComment on above:Performed By: #### CBC, BMP, 22489-4, 2776-, UPCR, 2731-8, 64800-0 #### [facility] ([id number]) [address], [address] [place], [place] [address]Cqfyxynhoq (Bld) [Volume fraction]38.3 %Yaebst42-38RmoGyfbwvSt. Luke'S Health – Memorial LufkinComment on above:Performed By: #### CBC, BMP, 83744-7, 2776-, UPCR, 2731-8, 46374-0 #### [facility] ([id number]) [address], [address] [place], [place] [address]Nwidimiqeu (Bld) [Mass/Vol]12.7 g/uYWyyhld37.7-15.5PMercy Health Allen HospitalComment on above:Performed By: #### CBC, BMP, 93060-0, 2776-, UPCR, 2731-8, 66563-6 #### [facility] ([id number]) [address], [address] [place], [place] [address]Znfrnodhdbc (Bld) [#/Vol]0.4 10*3/uLLow1.0-3.5PMercy Health Allen HospitalComment on above:Performed By: #### CBC, BMP, 31616-0, 2777-1, UPCR, 2731-8, 12494-3 #### [facility] ([id number]) [address], [address] [place], [place] [address]Ohpgcafrmfw/100 WBC (Bld)4.8 %NormalProSt. Luke'S Health – Memorial Lufkin Comment on above:Performed By: #### CBC, BMP, 22044-3, 2777-1, UPCR, 2731-8, 15420-0 #### [facility] ([id number]) [address], [address] [place], [place] [address]YQE (RBC) [Entitic mass]29.4 tmSamvbt30-22EuaFstdrfSt. Luke'S Health – Memorial LufkinComment on above:Performed By: #### CBC, BMP, 78438-7, 2777-1, UPCR, 2731-8, 51764-6 #### [facility] ([id number]) [address], [address] [place], [place] [address]UPFE (RBC) [Mass/Vol]33.2 g/eHNfakox54-52LshClbzgkSt. Luke'S Health – Memorial LufkinComment on above:Performed By: #### CBC, BMP, 07674-1, 2777-1, UPCR, 2731-8, 40186-8 #### [facility] ([id number]) [address], [address] [place], [place] [address]XPD (RBC) [Entitic vol]88 pTUtsrze10-590EivJymcdp [facility]remont HospitalComment on above:Performed By: #### CBC, BMP, 35862-9, 2777-1, UPCR, 2731-8, 55084-9 #### [facility] ([id number]) [address], [address] [place], [place] [address]Nedbjivnv (Bld) [#/Vol]0.5 10*3/uLNormal0-0.9ProMedica Flower HospitalComment on above:Performed By: #### CBC, BMP, 85582-5, 2777-1, UPCR, 2731-8, 02001-5 #### [facility] ([id number]) [address], [address] [place] [address]Ppsrnkzhf/100 WBC (Bld)6.6 %NormalProMedica Flower Hospital Comment on above:Performed By: #### CBC, BMP, 64992-4, 2777-1, UPCR, 2731-8, 81193-2 #### [facility] ([id number]) [address], [address] [place], [place] [address]Kjywbftnwxo/100 WBC (Bld)88.1 %[facility] Comment on above:Performed By: #### CBC, BMP, 41539-9, 2777-1, UPCR, 2731-8, 69297-6 #### [facility] ([id number]) [address], [address] [place] [address]Nxtvktph mean volume (Bld) [Entitic vol]8.1 fLNormal7-12 [facility] Flower HospitalComment on above:Performed By: #### CBC, BMP, 50618-6, 2777-1, UPCR, 2731-8, 71566-3 #### [facility] ([id number]) [address], [address] [place] [address]Nznislvik (Bld) [#/Vol]255 10*3/nUGehlmy908-700TutFkuvhf [facility] HospitalComment on above:Performed By: #### CBC, BMP, 84196-4, 2777-1, UPCR, 2731-8, 81004-0 #### [facility] ([id number]) [address], [address] [place] [address]XNW COUNT4.34 X10E12/LNormal3.80-5.20[facility] Comment on above:Performed By: #### CBC, BMP, 12305-0, 2777-1, UPCR, 2731-8, 71788-5 #### [facility] ([id number]) [address], [address] [place] [address]DGT (Bld) [#/Vol]7.6 10*3/uLNormal4.0-11.0ProMedica Flower HospitalComment on above:Performed By: #### CBC, BMP, 92744-9, 2776-, UPCR, 273-8, 97703-5 #### [facility] ([id number]) [address], [address] [place] [address]RFPLKDLHSNHMP METABOLIC PANELon 25-42-0300Ggfudhq [Mass/Vol]3.5 g/dLNormal3.2-5.3PMercy Health Allen HospitalComment on above:Performed By: #### CBC, BMP, 41716-7, 2776-, UPCR, 2730-8, 79945-3 #### [facility] ([id number]) [address], [address] [place] [address]WKT [Catalytic activity/Vol]72 U/IKxuvjz77-051NfrGmjesdSt. Luke'S Health – Memorial LufkinComment on above:Performed By: #### CBC, BMP, 58355-8, 2776-, UPCR, 2730-8, 02283-2 #### [facility] ([id number]) [address], [address] [place] [address]ASS [Catalytic activity/Vol]12 U/LNormal0-31PMercy Health Allen HospitalComment on above:Performed By: #### CBC, BMP, 88509-8, 2776-, UPCR, 2731-8, 07539-1 #### [facility] ([id number]) [address], [address] [place] [address]Cdugq gap [Moles/Vol]7 mmol/LNormal5-15ProSt. Luke'S Health – Memorial LufkinComment on above:Performed By: #### CBC, BMP, 59311-3, 2776-1, UPCR, 2731-8, 80560-3 #### [facility] ([id number]) [address], [address] [place] [address]VAU [Catalytic activity/Vol]14 U/LNormal0-41ProSt. Luke'S Health – Memorial LufkinComment on above:Performed By: #### CBC, BMP, 77178-1, 2776-, UPCR, 2731-8, 21977-6 #### [facility] ([id number]) [address], [address] [place], [place] [address]Fxwkrntyl [Mass/Vol]0.5 mg/dLNormal0.3-1.2PMercy Health Allen HospitalComment on above:Performed By: #### CBC, BMP, 68335-5, 2776-, UPCR, 2731-8, 04756-9 #### [facility] ([id number]) [address], [address] [place], [place] [address]Qgxlrjf [Mass/Vol]8.4 mg/dLLow8.5-10.5PMercy Health Allen Hospital Comment on above:Performed By: #### BRAN, BMP, 69471-8, 2776-, UPCR, 2731-8, 40569-1 #### [facility] ([id number]) [address], [address] [place], [place] [address]Qzcbosfy [Moles/Vol]108 mmol/FWnzjqi79-496EixKnscphSt. Luke'S Health – Memorial LufkinComment on above:Performed By: #### CBC, BMP, 10739-0, 2776-, UPCR, 2731-8, 30558-9 #### [facility] ([id number]) [address], [address] [place], [place] [address]ST0 [Moles/Vol]21 mmol/VYxj02-02HbfYftyvjMercy Health Allen Hospital Comment on above:Performed By: #### CBC, BMP, 28685-6, 2776-1, UPCR, 2731-8, 16331-6 #### [facility] ([id number]) [address], [address] [place], [place] [address]Qtkisomiyd [Mass/Vol]1.53 mg/dLHigh0.40-1.00ProSt. Luke'S Health – Memorial LufkinComment on above:Result Comment: METHOD TRACEABLE TO IDMS STANDARD Performed By: #### JESSE SOTOMAYOR, 74542-7, 2776-1, UPCR, 2731-8, 73137-1 #### [facility] ([id number]) [address], [address] [place], [place] [address]FUB/1.73 sq M.predicted among non-blacks MDRD (S/P/Bld) [Vol rate/Area]48 mL/min/{1.73_m2}Low>59ProSt. Luke'S Health – Memorial LufkinComment on above: Result Comment: Reported eGFR is based on the CKD-EPI 2020 equation that does not use a race coefficient.Performed By: #### JESSE SOTOMAYOR, 95677-8, 2776-, UPCR, 2730-8, 95456-6 #### [facility] ([id number]) [address], [address] [place], [place] [address]Iytopow [Mass/Vol]112 mg/jYNjjr22-98XfcAzjvarProMedica Flower Hospital Comment on above:Performed By: #### JESSE SOTOMAYOR, 17145-9, 2776-, UPCR, 2731-8, 46281-5 #### [facility] ([id number]) [address], [address] [place], [place] [address]Savimugla [Moles/Vol]3.9 mmol/LNormal3.5-5.0ProSt. Luke'S Health – Memorial LufkinComment on above:Performed By: #### BRAN, JESSE, 24614-6, 2776-, UPCR, 2731-8, 91722-8 #### [facility] ([id number]) [address], [address] [place], [place] [address]Grawbyz [Mass/Vol]6.8 g/dLNormal6.0-8.0ProSt. Luke'S Health – Memorial LufkinComment on above:Performed By: #### CBC, BMP, 27144-7, 2776-, UPCR, 2731-8, 88066-4 #### [facility] ([id number]) [address], [address] [place], [place] [address]Cmrlkn [Moles/Vol]136 mmol/CMwyooh186-511HpmOsoqxr [facility] HospitalComment on above:Performed By: #### CBC, BMP, , 2776-, UPCR, 2731-8, 55903-3 #### [facility] ([id number]) [address], [address] [place], [place] [address]Iept nitrogen [Mass/Vol]16 mg/dLNormal5-23ProSt. Luke'S Health – Memorial LufkinComment on above:Performed By: #### BRAN, JESSE, , 2776-03, UPCR, 2730-8, 81312-7 #### [facility] ([id number]) [address], [address] [place], [place] [address]QNZ ( test) Ql (U)on 18-79-7272Nyap HCG ( test) Ql (U)NegativeNormalNEGProSt. Luke'S Health – Memorial LufkinComment on above: Performed By: #### 2106-3 #### [facility] ([id number]) [address] [place] [address], [place], [place] [address]DDPEYFwv 29-30-5968Qwxdwx [Catalytic activity/Vol]28 U/LNormal 17-40ProSt. Luke'S Health – Memorial LufkinComment on above:Performed By: #### BRAN, BMP, , 2776-, UPCR, 2731-8, 91207-8 #### [facility] ([id number]) [address], [address] [place], [place] [address]EYLW/FLU A+B/RSV by NAAT/Molecularon 43-83-2654GUNS/FLU A+B/RSV by NAAT/MolecularFLU A PCR Positive (qualifier value) FLU B PCR Negative (qualifier value) RSV by PCR Negative (qualifier value) SARS CoV 2 Not detected (qualifier value) NOTE The Xpert Xpress SARS-CoV-2/Flu/RSV Plus test is a rapid, multiplexed real-time RT-PCR test intended for the simultaneous qualitative detection and differentiation of SARS-CoV-2, influenza A, influenza B and respiratory syncytial virus (RSV) viral RNA from individuals suspected of respiratory viral infection consistent with COVID-19 by their healthcare provider. This test has not been validated in asymptomatic patients. The Xpert Xpress SARS-CoV-2 test is intended for use by qualified and trained operators who are performing tests using either [employer] or [employer] systems and is limited to laboratories that meet the CLIA requirements to perform high and moderate complexity tests. The Xpert Xpress SARS-CoV-2/Flu/RSV Plus is only for use under the Food and Drug Administration's Emergency Use Authorization. Results are for the simultaneous detection and differentiation of SARS-CoV-2, influenza A, influenza B and RSV nucleic acids in clinical specimens. SARS-CoV-2, influenza A, influenza B and RSV RNA identified by this test are generally detectable in upper respiratory samples during the acute phase of infection. Positive results are indicative of the presence of the identified virus, but do not rule out bacterial infection or co-infection with other pathogens not detected by this test. Clinical correlation with patient history and other diagnostic information is necessary to determine patient infection status. The agent detected may not be the definite cause of disease. Negative results do not preclude SARS-CoV-2, influenza A, influenza B and RSV infection and should not be used as the sole basis for treatment or other patient management decisions. Negative results must be combined with clinical observations, patient history and epidemiological information. An Invalid result may occur with specimen-associated inhibition unable to be resolved with specimen repeat. Fact Sheet for Healthcare Providers: https://www.fda.gov/media/334992/download Fact Sheet for Patients: https://www.fda.gov/media/775561/downloadNormalProMedica San Vicente HospitalComment on above:Performed By: #### CBC, BMP, 92851-6, 2777-1, UPCR, 2731-8, 44053-9 #### [facility] ([id number]) [address], [address] [place], [place] [address]ZGF MACROSCOPIC NURon 20-20-7217ZOGBMROUE NURNegativeNormalNEG [facility] HospitalComment on above:Performed By: #### NUM #### [facility] ([id number]) [address] [place] [address]CJDIQ/HGB NURLargeAbnormalNEGProSt. Luke'S Health – Memorial LufkinComment on above:Performed By: #### NUM #### [facility] ([id number]) [address] [place] [address]CABJKSN NURNegativeNormalNEGProSt. Luke'S Health – Memorial LufkinComment on above:Performed By: #### NUM #### [facility] ([id number]) [address] [place] [address]ECRPHMQ NURNegativeNormalNEGProSt. Luke'S Health – Memorial LufkinComment on above:Performed By: #### NUM #### [facility] ([id number]) [address] [place] [address]YUQXZYRIH ESTERASE NURNegativeNormalNEGProSt. Luke'S Health – Memorial LufkinComment on above:Performed By: #### NUM #### [facility] ([id number]) [address] [place] [address]IWSDYWD NURNegativeNormalNEGProSt. Luke'S Health – Memorial LufkinComment on above:Performed By: #### NUM #### [facility] ([id number]) [address] [place] [address] 38884DY NUR5.1Nfkebs6.0-8.5Pro[facility] Vicente HospitalComment on above:Performed By: #### NUM #### [facility] ([id number]) [address] [place] [address]NIWFZPK NESTOR>=300AbnormalNEGProSt. Luke'S Health – Memorial LufkinComment on above:Performed By: #### NUM #### [facility] ([id number]) [address] [place] [address]NPFWFJMT GRAVITY NUR1.049Iwmwba8.003-1.035Pro[facility]ica Flower HospitalComment on above:Performed By: #### NUM #### [facility] ([id number]) [address] [place] [address]SVLRHPZDVQSI NUR0.2 eu/dLNormal<1.1PMercy Health Allen Hospital Comment on above:Performed By: #### NUM #### [facility] ([id number]) [address] [place] [address], [place], [place] [address]TOY 12 leadon 22-75-7177MOFZQEEACHXAUTIjrRwqgex Health System BASIC METABOLIC PANLon 49-56-1157Yqneh gap [Moles/Vol]7 mmol/LNormal5-15 [facility] HospitalComment on above:Performed By: #### CBC, BMP, 09962-3, 2777-1, UPCR, 2731-8, 26450-5 #### [facility] ([id number]) [address], [address] [place], [place] [address]Ztrkzqq [Mass/Vol]9.2 mg/dLNormal8.5-10.5PMercy Health Allen HospitalComment on above:Performed By: #### CBC, BMP, 71755-4, 7-1, UPCR, 2731-8, 56832-7 #### [facility] ([id number]) [address], [address] [place], [place] [address]Goiuhmap [Moles/Vol]106 mmol/CJopdut90-554VpwQmxtedSt. Luke'S Health – Memorial LufkinComment on above:Performed By: #### CBC, BMP, 93395-1, 2777-1, UPCR, 2731-8, 83597-8 #### [facility] ([id number]) [address] [place], [place] [address]JK2 [Moles/Vol]27 mmol/SGjlsze61-72GnnFjxowaMercy Health Allen Hospital Comment on above:Performed By: #### JESSE SOTOMAYOR, , 2776-03, UP, 2730-8, 35134-5 #### [facility] ([id number]) [address], [address] [place], [place] [address]Hmxvigfsjp [Mass/Vol]1.31 mg/dLHigh0.40-1.00ProMedica Flower HospitalComment on above:Result Comment: METHOD TRACEABLE TO IDMS STANDARD Performed By: #### JESSE SOTOMAYOR, , 2776-03, UP, 2730-8, 09531-2 #### [facility] ([id number]) [address], [address] [place], [place] [address]HMV/1.73 sq M.predicted among non-blacks MDRD (S/P/Bld) [Vol rate/Area]58 mL/min/{1.73_m2}Low>59ProSt. Luke'S Health – Memorial LufkinComment on above: Result Comment: Reported eGFR is based on the CKD-EPI 2020 equation that does not use a race coefficient.Performed By: #### JESSE SOTOMAYOR, , 2776-03, UP, 2730-8, 12943-7 #### [facility] ([id number]) [address], [address] [place], [place] [address]Fbhwboo [Mass/Vol]102 mg/rWSfhc48-74ZibVrajtmProMedica Flower Hospital Comment on above:Performed By: #### JESSE SOTOMAYOR, , 2776-03, UPCR, 273-8, 18297-6 #### [facility] ([id number]) [address], [address] [place], [place] [address]Iekmjfeuk [Moles/Vol]4.2 mmol/LNormal3.5-5.0ProMedica Flower HospitalComment on above:Performed By: #### JESSE SOTOMAYOR, , 2776-03, UPCR, 273-8, 17128-8 #### [facility] ([id number]) [address], [facility] [address] [place], [place] [address]Jinutl [Moles/Vol]140 mmol/KUmfjql678-031NfqRfcogpProMedica Flower HospitalComment on above:Performed By: #### CBC, BMP, , 2776-03, UPCR, 273-8, 88148-8 #### [facility] ([id number]) [address] [place], [facility] [address] [place], [place] [address]Mvck nitrogen [Mass/Vol]25 mg/dLHigh5-23ProMedica Flower HospitalComment on above:Performed By: #### CBC, BMP, , 2776-03, UPCR, 2730-8, 23497-3 #### [facility] ([id number]) [address] [address]CYZPPOSK BLOOD COUNTon 21-95-7718Uxrzrxnsfab distribution width (RBC) [Ratio]13.6 %Umgurx79.5-15.0ProMedica Flower HospitalComment on above: Performed By: #### CBC, BMP, , 2776-03, UPCR, 2730-8, 10424-7 #### [facility] ([id number]) [address] [place], [facility] [address] [place], [place] [address]Lhbuakgqpp (Bld) [Volume fraction]41.5 %Onakra20-67HmbByijioProMedica Flower HospitalComment on above:Performed By: #### CBC, BMP, , 2776-03, UPCR, 2731-8, 95130-7 #### [facility] ([id number]) [address] [address] [place], [place] [address]Yyyvhimmqp (Bld) [Mass/Vol]13.8 g/mQRakuii99.7-15.5PMercy Health Allen HospitalComment on above:Performed By: #### CBC, BMP, 08890-3, 7-1, UPCR, 2731-8, 04698-6 #### [facility] ([id number]) [address], [address] [place], [place] [address]IYX (RBC) [Entitic mass]29.5 ztYgiaum54-13HpoHxmuyoSt. Luke'S Health – Memorial LufkinComment on above:Performed By: #### CBC, BMP, 50672-2, 2777-1, UPCR, 2731-8, 28512-2 #### [facility] ([id number]) [address], [address] [place], [place] [address]PWPV (RBC) [Mass/Vol]33.2 g/jOFsltmp98-88HnqHqrihvSt. Luke'S Health – Memorial LufkinComment on above:Performed By: #### CBC, BMP, 32289-5, 7-1, UPCR, 2731-8, 19853-5 #### [facility] ([id number]) [address], [address] [place], [place] [address]MNE (RBC) [Entitic vol]89 qTPscxnr40-831LhcRmhyzy [facility]remont HospitalComment on above:Performed By: #### CBC, BMP, 38897-5, 7-1, UPCR, 2731-8, 57391-8 #### [facility] ([id number]) [address], [address] [place], [place] [address]Lhqijlca mean volume (Bld) [Entitic vol]8.2 fLNormal7-12 [facility] HospitalComment on above:Performed By: #### CBC, BMP, 76252-5, 2777-1, UPCR, 2731-8, 89898-2 #### [facility] ([id number]) [address], [address] [place], [place] [address]Isluxxgqh (Bld) [#/Vol]348 10*3/xCMhjppy499-520HfwKubswx [facility]remont HospitalComment on above:Performed By: #### CBC, BMP, 23003-5, 2777-1, UPCR, 2731-8, 42834-5 #### [facility] ([id number]) [address], [address] [place] [address]PMT COUNT4.67 X10E12/LNormal3.80-5.20[facility] Comment on above:Performed By: #### CBC, BMP, 37088-3, 2777-1, UPCR, 2731-8, 99235-2 #### [facility] ([id number]) [address], [address] [place], [place] [address]UVH (Bld) [#/Vol]10.8 10*3/uLNormal4.0-11.0ProSt. Luke'S Health – Memorial LufkinComment on above:Performed By: #### CBC, BMP, 27710-5, 2777-1, UPCR, 2731-8, 08698-5 #### [facility] ([id number]) [address], [address] [place], [place] [address]SOBURYUNEsi 42-79-9109Uhrlvtdiu [Mass/Vol]1.8 mg/dLNormal1.8-2.6 ProMAdventist Health VallejoComment on above:Performed By: #### CBC, BMP, 73254-8, 2777-1, UPCR, 2731-8, 11952-4 #### [facility] ([id number]) [address], [address] [place] [address]RJWTQLEOUGhp 43-95-8997Milpeddey [Mass/Vol]2.9 mg/dLNormal 2.4-4.9ProSt. Luke'S Health – Memorial LufkinComment on above:Performed By: #### CBC, BMP, 55669-6, 2777-1, UPCR, 2731-8, 18441-5 #### [facility] ([id number]) [address], [address] [place], [place] [address]CNSRWMM CREAT RATIOon 87-09-5226NBNPBC URINE LSMKNZB4473 mg/L High<120ProSt. Luke'S Health – Memorial LufkinComment on above:Performed By: #### CBC, BMP, 36324-5, 7-1, UPCR, 2731-8, 24440-1 #### [facility] ([id number]) [address], [address] [place], [place] [address]L/PRO/SUPERVISOR DIE CASTING RATIO CALC1.61High<0.2PMercy Health Allen Hospital Comment on above:Result Comment: Nephrotic Syndrome is associated with ratios >3.5Performed By: #### CBC, BMP, 53456-2, 7-1, UPCR, 2731-8, 87709-3 #### [facility] ([id number]) [address] [facility] [place], [place] [address]FTLHJ CREATININE,RDM88.83 mg/dLNoalProMedica Flower Hospital Comment on above:Performed By: #### CBC, BMP, , 2776-, UPCR, 2731-8, 00463-1 #### [facility] ([id number]) [address] [place], [place] [address]Zkryluzovf.intact [Mass/Vol]on 43-05-9502RHY NELXSD44 pg/mLHigh 12-88ProMedica Flower HospitalComment on above:Performed By: #### CBC, BMP, 30375-9, 2776-, UPCR, 2731-8, 52954-3 #### [facility] ([id number]) [address], [address] [place], [place] [address]KAUOAUDKALhk 14-69-0173Muzwgzvob Ql (U)NegativeNormalNEG ProMAdventist Health VallejoComment on above:Performed By: #### UA #### [facility] ([id number]) [address], [address] [place], [place] [address]CIZHN/HGBLargeAbnormalNEGProSt. Luke'S Health – Memorial LufkinComment on above:Performed By: #### UA #### [facility] ([id number]) [address], [address] [place], [place] [address]Qkugw (U)AMBERAbnormalYELLOWProMedica Flower HospitalComment on above:Performed By: #### UA #### [facility] ([id number]) [address], [address] [place], [place] [address]Gspeudj Ql (U)NegativeNormalNEGProMedica Flower HospitalComment on above:Performed By: #### UA #### [facility] ([id number]) [address], [address] [place], [place] [address]Ghsmnji Ql (U)NegativeNormalNEGProMedica Flower HospitalComment on above:Performed By: #### UA #### [facility] ([id number]) [address], [address] [place], [place] [address]Kqkdnjybd esterase Test strip Ql (U)LargeAbnormalNEGProMedica Flower HospitalComment on above:Performed By: #### UA #### [facility] ([id number]) [address], [address] [place], [place] [address]KRQPDQVPCWUAYIalraqhbTRDPQgrEbbwlx [facility]remont HospitalComment on above:Performed By: #### UA #### [facility] ([id number]) [address], [address] [place], [place] [address]Yvxmmqn Ql (U)PositiveAbnormalNEGMarion Hospital on above:Performed By: #### UA #### [facility] ([id number]) [address], [address] [place], [place] [address]sX (U)6.0 [pH]Normal5.0-8.5PMercy Health Allen HospitalComment on above:Performed By: #### UA #### [facility] ([id number]) [address], [address] [place], [place] [address]Fodrxap Ql (U)200 mg/dLAbnormalNEGProSt. Luke'S Health – Memorial Lufkin Comment on above:Performed By: #### UA #### [facility] ([id number]) [address], [address] [place], [place] [address]I.B.CELLS11 /hpfHigh0-5PMercy Health Allen HospitalComment on above:Performed By: #### UA #### [facility] ([id number]) [address], [address] [place], [place] [address]Nyhqvzqr gravity (U) [Rel density]1.994Jcgdai9.003-1.035 [facility] Vicente HospitalComment on above:Performed By: #### UA #### [facility] ([id number]) [address], [address] [place], [place] [address]LAOWNCEP EPITHELIUM5 /hpfNormal0-[address] [place] [address] Comment on above:Performed By: #### UA #### [facility] ([id number]) [address], [address] [place], [place] [address]ZFUUUOARENTJDZwdfaqqfKZKVALcqDlmgnz [facility]remont HospitalComment on above:Performed By: #### UA #### [facility] ([id number]) [address], [address] [place], [place] [address]Xudjytxvbgzx (U) [Mass/Vol]mg/dLNormal<1.1PMercy Health Allen HospitalComment on above:Performed By: #### UA #### [facility] ([id number]) [address], [address] [place], [place] [address]O.B.YJQZK973 /hpfHigh0-5PMercy Health Allen HospitalComment on above:Performed By: #### UA #### [facility] ([id number]) [address], [address] [place], [place] [address]EON CLUMPSRAREAbnormalNONAvita Health SystemComment on above:Performed By: #### UA #### [facility] ([id number]) [address] [place] [address], [address] [place], [place] [address]Nxdwhji D+Metabolites [Mass/Vol]on 20-17-9751BZIOJLT D 25 HYD TOT11.0 ng/jDVoc75-881HyaDredai San Vicente HospitalComment on above:Result Comment: Vitamin D status 25 [place] Vitamin D Deficiency <20 ng/mL Insufficiency 20-29 ng/mL Sufficiency 30-100 ng/mL Toxicity >100 ng/mL NOTE: A pediatric reference range has not been established by the affiliate marketing manager of this kit. The [place] [employer] recommends a Vitamin D level of = or >20ng/mL in infants and children.Performed By: #### CBC, BMP, 01969-6, 2777-1, UPCR, 2731-8, 08645-6 #### [facility] ([id number]) [address] [place] [address], [address] [place], [place] [address]EAW w/ Auto Diffon 06-29-9050Wwxhivvwh/100 WBC (Bld)0.4 %Normal 0.0-2.0FishHoly Cross HospitalComment on above:Performed By: #### 6432318, 92484891, 623783230, 93955804, 9722172, 9919742 #### [facility] [address] [place], [place] [address]Qmkfyzdan/Leukocytes Auto (Bld) [Pure # fraction]0.0 E9/LNormal 0.0-0.2FProvidence HospitalComment on above:Performed By: #### 9550311, 36562028, 500209258, 79969410, 4875694, 3843098 #### [facility] [address] [place], [place] [address]Vgmqsrpnioj (Bld) [#/Vol]0.2 E9/LNormal0.0-0.5Fisher Upmc Western MarylandComment on above:Performed By: #### 8667995, 90256690, 120925195, 78640106, 4754453, 2500837 #### [facility] [address] [place] [address]Sblzxsfnrpv/100 WBC (Bld)2.1 %Normal0.0-8.0[facility] Medical CenterComment on above:Performed By: #### 5754618, 68245792, 844717936, 17767977, 9372360, 5257756 #### [facility] [address] [place] [address]Xfzhgaqysjj distribution width (RBC) [Ratio]14.2 %Normal 10.9-14.2FProvidence HospitalComment on above:Performed By: #### 7966902, 53744143, 810800848, 28546731, 4038726, 9810357 #### [facility] [address] [place] [address]Mfjrkidiml (Bld) [Volume fraction]39.4 %Rrkubq80.0-46.0[facility] Medical CenterComment on above:Performed By: #### 6326835, 60257570, 840376527, 48122917, 1920257, 4669105 #### [facility] [address] [place] [address]Eozhbdtlhp (Bld) [Mass/Vol]12.8 g/yVEhgxoz93.0-16.0[facility] CenterComment on above:Performed By: #### 0884749, 88264180, 930041738, 69208826, 9482364, 3807838 #### [facility] [address] [place] [address]Fzznakzoacx (Bld) [#/Vol]2.1 E9/LNormal1.0-4.0[facility] CenterComment on above:Performed By: #### 7997008, 87554927, 223021623, 95068582, 8068263, 0890310 #### [facility] [address] [place] [address]Mpxqosofjbo/100 WBC (Bld)24.8 %Lbdoxp35.0-50.0[facility] CenterComment on above:Performed By: #### 1270152, 02718227, 487709328, 77910041, 2824676, 7028267 #### [facility] [address] [place] [address]BHF (RBC) [Entitic mass]27.7 mxPsagbw59.0-34.0[facility] CenterComment on above:Performed By: #### 8830817, 93364582, 837012137, 52954024, 4906600, 0602410 #### [facility] [address] [place] [address]KBFJ (RBC) [Mass/Vol]32.5 g/zIFsvlkc05.4-36.0[facility] CenterComment on above:Performed By: #### 4419581, 33177319, 674719163, 53813429, 4380654, 6274922 #### [facility] [address] [place] [address]ZGK (RBC) [Entitic vol]85.2 lBJiklax56.0-100.0[facility] CenterComment on above:Performed By: #### 1876188, 88503913, 076042947, 55227186, 0578133, 9535599 #### [facility] [address] [place] [address]Xngsurcfx (Bld) [#/Vol]0.4 E9/LNormal0.2-1.0[facility] CenterComment on above:Performed By: #### 4799746, 40317785, 715960046, 58750399, 0229985, 6727580 #### [facility] [address] [place] [address]Empzilrqkon (Bld) [#/Vol]5.7 E9/LNormal2.0-7.5Fisher Kiel Medical CenterComment on above:Performed By: #### 7515932, 47754763, 578606919, 87365866, 3208344, 2358420 #### [facility] [address] [place] [address]Twasrixfals/100 WBC (Bld)68.3 %Ycmdji20.0-75.0[facility] Medical CenterComment on above:Performed By: #### 0674660, 22959023, 221746830, 43313848, 2930685, 5107503 #### [facility] [address] [place] [address]Unxsdtuq mean volume (Bld) [Entitic vol]9.1 fLNormal6.4-10.8 [facility] CenterComment on above:Performed By: #### 8951780, 26749727, 594675671, 10924448, 3016892, 2409332 #### [facility] [address] [place] [address]Cqaeieimf (Bld) [#/Vol]336.0 E9/CVubbcd109.0-500.0[facility] CenterComment on above:Performed By: #### 7374997, 13287334, 419536219, 10324748, 8354317, 9305881 #### [facility] [address] [place] [address]IGL (Bld) [#/Vol]4.6 E12/LNormal4.3-5.9[facility] CenterComment on above:Performed By: #### 9612360, 99872938, 010931995, 22201572, 1025100, 7359737 #### [facility] [address] [place] [address]KBA corrected for nucl RBC Auto (Bld) [#/Vol]8.3 E9/LNormal 4.0-11.0[facility] CenterComment on above:Performed By: #### 1336874, 18591613, 104868050, 62603685, 2292151, 0388556 #### [facility] [address] [place], [place] [address]QKPgz 63-64-2249Ujujkwh [Mass/Vol]3.9 g/dLNormal3.3-5.0[facility] CenterComment on above:Performed By: #### 1496950, 95573124, 912579896, 95396156, 4051327, 4146554 #### [facility] [address] [place], [place] [address]Sozpepq/Globulin (S) [Mass conc ratio]1.7Fxtjcj0.1-2.2FProvidence HospitalComment on above:Performed By: #### 8979628, 72707468, 910744443, 45576578, 3835331, 4768015 #### [facility] [address] [place] [address]TNE [Catalytic activity/Vol]93 Int._Unit/AXimuae95-59BfzuqrTrinity Health System Twin City Medical CenterComment on above:Performed By: #### 2532319, 86243248, 507495234, 54202264, 1857615, 8446669 #### [facility] [address] [place] [address]QRS No additional P-5'-P [Catalytic activity/Vol]10 Int._Unit/L Normal6-46[facility] CenterComment on above:Performed By: #### 9207340, 69127757, 166723512, 62790148, 1081300, 8254179 #### [facility] [address] [place], [place] [address]Zmgnx gap [Moles/Vol]14 mmol/LNormal6-16[facility] CenterComment on above:Performed By: #### 0209796, 63499245, 419839216, 48915033, 5512420, 8916966 #### [facility] [address] [place] [address]HVY [Catalytic activity/Vol]10 Int._Unit/LNormal5-43[facility] CenterComment on above:Performed By: #### 7354028, 91592820, 399443019, 15503764, 0241420, 8422966 #### [facility] [address] [place], [place] [address]Yiaiiedqv [Mass/Vol]0.3 mg/dLNormal0.0-1.1FProvidence HospitalComment on above:Performed By: #### 4678866, 28450525, 886935873, 29795064, 8939767, 4940339 #### [facility] [address] [place], [place] [address]Pemixjs [Mass/Vol]9.4 mg/dLNormal8.9-11.1FProvidence HospitalComment on above:Performed By: #### 5457559, 40092745, 171403847, 67535480, 7864934, 9668043 #### [facility] [address] [place], [place] [address]Lixdegzq [Moles/Vol]111 mmol/YPczyma897-237EwjqztTrinity Health System Twin City Medical CenterComment on above:Performed By: #### 6939453, 27751218, 322021684, 26373950, 4731063, 0528471 #### [facility] [address] [place], [place] [address]IP2 [Moles/Vol]21 mmol/YSilhuf65-65PedfzoTrinity Health System [facility] Comment on above:Performed By: #### 2324165, 11189718, 069295367, 39181138, 0798458, 5109484 #### [facility] [address] [place], [place] [address]Iuvkighzgl [Mass/Vol]1.3 mg/dLNormal0.5-1.3FProvidence HospitalComment on above:Performed By: #### 2420888, 24551163, 953094202, 79811459, 0304591, 0549923 #### [facility] [address] [place], [place] [address]Pdcvvapw (S) [Mass/Vol]2.8 g/dLNormal1.4-4.0[facility] Medical CenterComment on above:Performed By: #### 4913601, 61792150, 558860444, 88533506, 0712601, 7991885 #### [facility] [address] [place], [place] [address]Adsazuu [Mass/Vol]84 mg/tQKcjrsa55-996RwbhedTrinity Health System Twin City Medical CenterComment on above:Performed By: #### 8241122, 38063623, 439339071, 99144078, 2998702, 5907180 #### [facility] [address] [place], [place] [address]Qdxszfyjm [Moles/Vol]4.7 mmol/LNormal3.5-5.3FProvidence HospitalComment on above:Performed By: #### 4769851, 95541619, 377718658, 67831468, 0444516, 0576259 #### [facility] [address] [place] [address]Gextykd [Mass/Vol]6.7 g/dLNormal6.0-7.8[facility] Medical CenterComment on above:Performed By: #### 4493284, 75743125, 341529253, 69127956, 9852844, 4733538 #### [facility] [address] [place] [address]Lvjlsm [Moles/Vol]141 mmol/PCfcdgs906-623GyyydyTrinity Health System Twin City Medical CenterComment on above:Performed By: #### 7144080, 24124833, 711546565, 65177928, 9582319, 6832790 #### [facility] [address] [place], [place] [address]Jeww nitrogen [Mass/Vol]20 mg/dLNormal5-21[facility] Medical CenterComment on above:Performed By: #### 4321885, 01810037, 490467179, 33337788, 5213756, 1297214 #### [facility] [address] [place], [place] [address]Lmre nitrogen/Creatinine [Mass ratio]15 No OcmldBruvxz78-23 [facility] Medical CenterComment on above:Performed By: #### 4215927, 77179190, 688564182, 90574930, 5037391, 3855440 #### [facility] [address] [place], [place] [address]KjdG1laj 23-59-8083FbC1p (Bld) [Mass fraction]5.2 %Normal<=5.9 [facility] Medical CenterComment on above:Performed By: #### 8620163, 75893143, 333781560, 49263786, 3364850, 9576471 #### [facility] [address] [place], [place] [address]Uvopj Panelon 82-09-5841Jtvaamfrfuv [Mass/Vol]123 mg/dLNormal 120-200[facility] Medical CenterComment on above:Performed By: #### 5852466, 53365402, 517125465, 27379055, 5636632, 4997114 #### [facility] [address] [place], [place] [address]Kfgtfpkohwj in HDL [Mass/Vol]37 mg/dLInvalid Interpretation CodeTrinity Health System Twin City Medical CenterComment on above:Result Comment: '>= 60 LOW RISK' '<= 40 HIGH RISK'Performed By: #### 8857432, 13533150, 453916132, 16986334, 3963979, 3397235 #### [facility] [address] [place], [place] [address]Cslnhuwddez in LDL [Mass/Vol]71 mg/dLNormal<=129[facility] Medical CenterComment on above:Performed By: #### 6619818, 74257205, 840348233, 28130149, 3160179, 7669024 #### [facility] [address] [place], [place] [address]Vtozfothzyr in VLDL [Mass/Vol]16 mg/dLNormal7-40[facility] Medical CenterComment on above:Performed By: #### 9663158, 17528906, 120496270, 75274702, 8976400, 9852987 #### [facility] [address] [place], [place] [address]Rfaczeuazwsd [Mass/Vol]79 mg/dLNormal<=149[facility] Medical CenterComment on above:Performed By: #### 4923772, 90079819, 128210865, 74977153, 1665126, 2119954 #### [facility] [address] [place] [address]Hjunsapqy Orderon 47-92-5618Ktnefblav Order [id number]#1.00TIFFNormalTrinity Health System Twin City Medical CenterT4 & TSHon 84-34-9233CZA Qn1.83 m[IU]/LNormal0.34-5.60[facility] Medical CenterComment on above:Performed By: #### 9210703, 60268956, 794540869, 54527347, 0760666, 2479294 #### [facility] [address] [place] [address]P9 [Mass/Vol]9.8 microgram/dLHigh4.6-9.1Fisher [facility]pmc Western MarylandComment on above:Performed By: #### 5635948, 71274472, 923603020, 92406446, 9378971, 8195191 #### [facility] [address] [place], [place] [address]hRPHgl 07-28-2073jBEQ98 mL/min/1.73 m2Low>=59[facility] City Medical CenterComment on above:Order Comment: Order added by Discern Expert. Performed By: #### 6714478, 29896090, 112546199, 04963462, 4137497, 1613228 #### [facility] [address] [place] [address]Gbweyrr for Treatmenton 88-68-6842Hjzokpv for Treatment [id number]#1.00[facility] HospitalDischarge Instructionson 50-49-9478Foxpgpqdz Instructions [id number]#1.00[facility] Clinical Summaryon [id number] Clinical Summary [place] [id number] ED Clinical Summary Person Information Name: TOM KOVACS [facility] Age: 27 Years : 1995 Sex: Female Language: French PCP: DIVINE HAUSER CNP Marital Status: Phone: [phone] Visit Id: Visit Reason: Ear pain; DOUBLE EAR INFECTION Speciality: Acuity: 5 Enc Type: Emergency Med Service: Emergency Arrival: 05/01/2023 14:33:29 Discharge: 05/01/2023 15:31:19 LOS: 000 00:58 Checkin: 05/01/2023 14:33:29 Checkout: 05/01/2023 15:31:19 Dispo Type: Home (Routine DC) EVENTS: Event Name Event Status Request Date/Time Start Date/Time Complete Date/Time Arrive Complete 05/01/2023 14:33:29 05/01/2023 14:33:29 05/01/2023 14:33:29 Document Home Meds Request 05/01/2023 14:33:29 Triage Complete 05/01/2023 14:33:29 05/01/2023 14:39:03 05/01/2023 14:39:03 Bed Assign Complete 05/01/2023 14:35:32 05/01/2023 14:35:32 05/01/2023 14:35:32 Dr Exam Complete 05/01/2023 14:35:32 05/01/2023 14:39:24 05/01/2023 14:39:24 RN Exam Complete 05/01/2023 14:35:32 05/01/2023 14:42:35 05/01/2023 14:42:35 Registration Complete 05/01/2023 14:36:39 05/01/2023 14:36:39 05/01/2023 14:36:39 Reg Complete Request 05/01/2023 14:36:39 Reg Bed Request Complete 05/01/2023 14:36:39 05/01/2023 14:36:39 05/01/2023 14:36:39 Registration Request 05/01/2023 14:39:24 Discharge Complete 05/01/2023 15:10:07 05/01/2023 15:31:25 05/01/2023 15:31:25 Meds Admin Complete 05/01/2023 15:10:47 05/01/2023 15:23:52 Transfer Complete 05/01/2023 15:31:25 05/01/2023 15:31:25 05/01/2023 15:31:25 ADDRESS: [address] [place] [id number] PHYS DOC NOTES: MEDICAL INFORMATION: Prescriptions Given: New Medications [id number], [address], [place] [id number], [phone] amoxicillin (amoxicillin 500 mg Cap) 1 Capsules By Mouth 2 times a day for 7 Days. Refills: 0. Medications to Continue with No Changes Other Medications labetalol multivitamin every day. naproxen (naproxen 500 mg Tab) 1 Tablets By Mouth 2 times a day. Take one tab by mouth two times a day. Refills: 0. PATIENT EDUCATION INFORMATION: Instructions: Otitis Media, Adult Follow up: With: Address: When: [facility] [place] [address] Business (1) In 3 days 05/04/2023 Comments: Call the office of your primary care doctor to arrange for follow-up within the above-stated timeframe. Follow-up with your primary care doctor about this ED visit. You should review your labs, imaging, and diagnoses from this ED visit with your primary care physician. There are occasionally non-emergent findings that require additional follow-up after your ED visit. If you were prescribed medications you should discuss possible side-effects and drug interactions with your pharmacist. Call 911 or go to the nearest Emergency Department if you develop any new or worsening symptoms. DIAGNOSIS: Otitis media; PharyngitisNormalFisher Harlan Medical CenterED Note-Physicianon [id number] Note-PhysicianBasic Information Time Seen: Brian De La Cruz DO 05/01/2023 14:39 Chief Complaint Pt reports ear pain for 3 days. Bilateral ears. Hurt to swallow and congestion History of Present Illness 27-year-old female to the emergency department chief complaint of bilateral ear pain, fevers, sore throat for the last 3 days. She reports recurrent otitis media. Recently on amoxicillin 3 months agofor the same. Otherwise at baseline health. Review of Systems A 10 point review of systems is negative except as noted above. Medical and Surgical History: Reviewed and noted Social history: Lives at home Tobacco: Denies Physical Exam Vitals & Measurements T: 36.5 ?C(Oral) HR: 74(Peripheral) RR: 18 BP: 134/84 SpO2: 97% HT: 163 cm WT: 114.6 kg BMI: 43.13 VITALS: I have reviewed the triage vital signs. GENERAL: Well developed, well appearing adult in no acute distress. NEURO: Alert and oriented. Moves all extremities. Face is symmetric and expressive. EYES: PERRL. No scleral icterus or conjunctival injection. No discharge. HENT: Normocephalic, atraumatic. Hearing is grossly intact. Nares grossly patent and without discharge. Mucous membranes moist. Bilateral TM bulging and erythema. Uvula midline. No unilateral peritonsillar swelling. There is erythema about the posterior oropharynx without lesion or tonsillar exudate. NECK: No JVD. Patient moves neck without restriction. CARDIO: Rhythm regular. Normal rate. No murmur, rub, or gallop. Pulses equal bilaterally in the upper and lower extremity. No lower extremity edema. PULM: Lungs clear to auscultation in all allen. No wheezes, rales, or rhonchi. No conversational dyspnea. No splinting, stridor, or accessory muscle use. GI/: Abdomen is soft and non-tender. Normoactive bowel sounds. EXTREMITIES: Symmetric muscle bulk. No joint swelling. No clubbing, cyanosis, or deformity. SKIN: Warm and dry. Normal turgor. No rash or lesions appreciated. PSYCH: Mood, affect, and interaction is appropriate to the setting. Medical Decision Making Well-appearing 27-year-old female with obvious otitis on exam. Will treat with amoxicillin. Dexamethasone is given for pharyngitis. Return precaution discussed. All questions were answered. Patient was discharged home. Assessment/Plan Otitis media (H66.90: Otitis media, unspecified, unspecified ear) Pharyngitis (J02.9: Acute pharyngitis, unspecified) Orders: amoxicillin, 500 mg = 1 cap(s), Oral, BID, X 7 day(s), # 14 cap(s), Refills(s) 0, Pharmacy: [facility]/pharmacy #[id number], 163, cm, 05/01/23 14:39:00 EST, Height/Length Dosing, 114.6, kg, 05/01/23 14:39:00 EST,Weight Dosing dexamethasone, 10 mg = 2.5 mL, Injection, Oral, Once, Stop date 05/01/23 15:10:00 EST, STAT, Start date 05/01/23 15:10:00 EST, 05/01/23 15:10:00 EST Medications Administered Given dexamethasone 4 mg/mL Inj 1 mL, 10 mg, Oral Disposition Plan Patient Discharge Condition Stable Discharge Disposition Home Discharge Prescription List Prescriptions amoxicillin 500 mg Cap, 500 mg= 1 cap(s), Oral, BID Follow-up With When Contact Information DIVINE HAUSER In 3 days 05/04/2023 EST [address] [place] [address]- Business (1) Additional Instructions: Call the office of your primary care doctor to arrange for follow-up within the above-stated timeframe. Follow-up with your primary care doctor about this ED visit. You should review your labs, imaging, and diagnoses from this ED visit with your primary care physician. There are occasionally non-emergent findings that require additional follow-up after your ED visit. If you were prescribed medications you should discuss possible side- effects and drug interactions with your pharmacist. Call 911 or go to the nearest Emergency Department if you develop any new or worsening symptoms. Patient Education Otitis Media, Adult Problem List/Past Medical History Ongoing No qualifying data Historical No qualifying data Medications Inpatient No active inpatient medications Home amoxicillin 500 mg Cap, 500 mg= 1 cap(s), Oral, BID labetalol multivitamin, Daily naproxen 500 mg Tab, 500 mg= 1 tab(s), Oral, BID Allergies No Known Allergies Social History Alcohol Current, 01/31/2021 Substance Abuse Current, 01/31/2021 Tobacco - No Risk, 03/19/2022 Never (less than 100 in lifetime) Tobacco Use:. Never Smokeless Tobacco Use:., 03/19/2022 Lab Results No qualifying data available. Diagnostic Results No qualifying data available.[facility] HospitalComment on above: Result Comment: Electronically Signed By: Brian De La Cruz DO\.br\Date and Time Signed: 05/01/23 17:59 ESTED Patient Education Noteon [id number] Patient Education NoteENT Otitis Media, Adult Otitis media occurs when there is inflammation and fluid in the middle ear with signs and symptoms of an acute infection. The middle ear is a part of the ear that contains bones for hearing as well as air that helps send sounds to the brain. When infected fluid builds up in this space, it causes pressure and can lead to an ear infection. The eustachian tube connects the middle ear to the back of the nose (nasopharynx) and normally allows air into the middle ear. If the eustachian tube becomes blocked, fluid can build up and become infected. What are the causes? This condition is caused by a blockage in the eustachian tube. This can be caused by mucus or by swelling of the tube. Problems that can cause a blockage include: ? A cold or other upper respiratory infection. ? Allergies. ? An irritant, such as tobacco smoke. ? Enlarged adenoids. The adenoids are areas of soft tissue located high in the back of the throat, behind the nose and the roof of the mouth. They are part of the body's defense system (immune system). ? A mass in the nasopharynx. ? Damage to the ear caused by pressure changes (barotrauma). What increases the risk? You are more likely to develop this condition if you: ? Smoke or are exposed to tobacco smoke. ? Have an opening in the roof of your mouth (cleft palate). ? Have gastroesophageal reflux. ? Have an immune system disorder. What are the signs or symptoms? Symptoms of this condition include: ? Ear pain. ? Fever. ? Decreased hearing. ? Tiredness (lethargy). ? Fluid leaking from the ear, if the eardrum is ruptured or has burst. ? Ringing in the ear. How is this diagnosed? This condition is diagnosed with a physical exam. During the exam, your health care provider will use an instrument called an otoscope to look in your ear and check for redness, swelling, and fluid. He or she will also ask about your symptoms. Your health care provider may also order tests, such as: ? A pneumatic otoscopy. This is a test to check the movement of the eardrum. It is done by squeezing a small amount of air into the ear. ? A tympanogram. This is a test that shows how well the eardrum moves in response to air pressure in the ear canal. It provides a graph for your health care provider to review. How is this treated? This condition can go away on its own within 3?5 days. But if the condition is caused by a bacterial infection and does not go away on its own, or if it keeps coming back, your health care provider may: ? Prescribe antibiotic medicine to treat the infection. ? Prescribe or recommend medicines to control pain. Follow these instructions at home: ? Take cwfm-vkl-wotfxmf and prescription medicines only as told by your health care provider. ? If you were prescribed an antibiotic medicine, take it as told by your health care provider. Do not stop taking the antibiotic even if you start to feel better. ? Keep all follow-up visits. This is important. Contact a health care provider if: ? You have bleeding from your nose. ? There is a lump on your neck. ? You are not feeling better in 5 days. ? You feel worse instead of better. Get help right away if: ? You have severe pain that is not controlled with medicine. ? You have swelling, redness, or pain around your ear. ? You have stiffness in your neck. ? A part of your face is not moving (paralyzed). ? The bone behind your ear (mastoid bone) is tender when you touch it. ? You develop a severe headache. Summary ? Otitis media is redness, soreness, and swelling of the middle ear, usually resulting in pain and decreased hearing. ? This condition can go away on its own within 3?5 days. ? If the problem does not go away in 3?5 days, your health care provider may give you medicines to treat the infection. ? If you were prescribed an antibiotic medicine, take it as told by your health care provider. ? Follow all instructions that were given to you by your health care provider. This information is not intended to replace advice given to you by your health care provider. Make sure you discuss any questions you have with your health care provider. Document Revised: 06/15/2021 Document Reviewed: 06/15/2021 Elsevier Patient Education ? 2022 B2Brev.[facility] ED Patient Summaryon [id number] Patient Summary [address] [address] Patient Discharge Instructions Person Information Name: TOM KOVACS Age: 27 Years Arrival Date: 05/01/2023 14:33:29 Discharge Diagnosis: Otitis media; Pharyngitis Primary Care Physician: DIVINE HAUSER CNP Provider Information Primary Provider: Brian De La Cruz DO Advanced Medical Insurance Clerk:None The exam and treatment you received in the Emergency Department were for an urgent problem and are not intended as complete care. It is important that you follow up with a doctor, nurse practitioner,or physician?s procurement assistant for ongoing care. If your symptoms become worse or you do not improve as expected and you are unable to reach your usual health care provider, you should return to the Emergency Department. We are available 24 hours a day. ROSSITOM NOVAK has been given the following list of patient education materials, prescriptionsand follow-up instructions: Follow-up Instructions: With: Address: When: DIVINE HAUSER [address] [place] [address] [address] [place] [address] Business (1) In 3 days 05/04/2023 Comments: Call the office of your primary care doctor to arrange for follow-up within the above-stated timeframe. Follow-up with your primary care doctor about this ED visit. You should review your labs, imaging, and diagnoses from this ED visit with your primary care physician. There are occasionally non-emergent findings that require additional follow-up after your ED visit. If you were prescribed medications you should discuss possible side-effects and drug interactions with your pharmacist. Call 911 or go to the nearest Emergency Department if you develop any new or worsening symptoms. In the event that this physician does not participate in your insurance network, please consult with your insurance company to find a nearby participating provider. Patient Education Materials: Otitis Media, Adult A MESSAGE TO ALL PATIENTS REGARDING OPIOIDS PRESCRIPTION OPIOIDS: WHAT YOU NEED TO KNOW Prescription opioids can be used to help relieve hbfipnty-gk-ylfeis pain and are often prescribed following a surgery or injury, or for certain health conditions. These medications can be an important part of the treatment but also come with serious risks. It is important to work with your healthcare provider to make sure you are getting the safest, most effective care. WHAT ARE THE RISKS AND SIDE EFFECTS OF OPIOID USE? Prescription opioids carry serious risks of addiction and overdose, especially with prolonged use. An opioid overdose, often marked by slowed breathing, can cause sudden . The use of prescription opioids can have a number of side effects as well, even when taken as directed: ? Tolerance?meaning you might need to take more of the medication for the same pain relief ? Physical dependence?meaning you have symptoms of withdrawal when a medication is stopped ? Increased sensitivity to pain ? Constipation ? Nausea, vomiting, and dry mouth ? Sleepiness and dizziness ? Confusion ? Depression ? Low levels of testosterone that can result in lower sex drive, energy, and strength ? Itching and sweating RISKS ARE GREATER WITH: ? History of drug misuse, substance use disorder, or overdose ? Mental health conditions (such as depression or anxiety) ? Sleep apnea ? Older age (65 years and older) ? Avoid alcohol while taking prescription opioids. Also, unless specifically advised by your health care provider, medications to avoid include: ? Benzodiazepines (such as Xanax or Valium) ? Muscle relaxants (such as Soma or Flexeril) ? Hypnotics (such as Ambien or Lunesta) ? Other prescription opioids KNOW YOUR OPTIONS Talk to your health care provider about ways to manage your pain that don?t involve prescription opioids. Some of these options may actually work better and have fewer risks and side effects. Optionsmay include: ? Pain relievers such as acetaminophen, ibuprofen, and naproxen ? Some medication that are also used for depression or seizures ? Physical therapy and exercise ? Cognitive behavioral therapy, a psychological, goal-directed approach, in which patients learn how to modify physical, behavioral, and emotional triggers of pain and stress. IF YOU ARE PRESCRIBED OPIOIDS FOR PAIN: ? Never take opioids in greater amounts or more often than prescribed. ? Follow up with your primary health care provider. o Work together to create a plan on how to manage your pain. o Talk about ways to help manage your pain that don?t involve prescription opioids. o Talk about any and all concerns and side effects. ? Help prevent misuse and abuse o Never sell or share prescription opioids. o Never use another person?s prescription opioids. ? Store prescription opioids in a secure place and out of re (more content not included)...[facility]rick HospitalCHEMISTRYOrdered By: SYSTEM SYSTEM on [id number].beta subunit QnmIU/mLNormal1 - 3 mIU/mLDRUMRIGHT REGIONAL HOSPITAL – [place]UM[place] RemisolComment on above:Interpretive Data: GESTATIONAL AGE HCG RANGE (mIU/mL) NON- <1-3 0.2-1 WEEKS 5-50 1-2 WEEKS 50-500 2-3 WEEKS 100-5,000 3-4 WEEKS 500-10,000 4-5 WEEKS 1,000-50,000 5-6 WEEKS 10,000-100,000 6-8 WEEKS 15,000-200,000 8-12 WEEKS 10,000-100,000CBC AUTO DIFFon [id number] #0.1 103/ulNormal0.0-0.1 [facility] HospitalComment on above:Performed By: #### CBC #### [facility] [address] [address] [address] Starr NguyenBasophils/100 WBC (Bld)0.4 %Normal0.2-2.0[facility] Comment on above:Performed By: #### CBC #### [facility] [address] [address] [address] Starr Guerra #0.2 103/ulNormal0.0-0.7The [facility] InstituteComment on above: Performed By: #### CBC #### [facility] [address] [address] [address] Starr Shayosinophils/100 WBC (Bld)1.7 %Normal0.9-7.0[facility] Comment on above:Performed By: #### CBC #### [facility] [address] [place] [address] Dr. Starr Shayrythrocyte distribution width (RBC) [Ratio]13.0 %Vdadiv47.0-15.0 [facility] HospitalComment on above:Performed By: #### CBC #### [facility] [address] [place] [address] Dr. Starr NguyenHematocrit (Bld) [Volume fraction]33.3 %Critically low36.0-48.0 [facility] HospitalComment on above:Performed By: #### CBC #### [facility] [address] [place] [address] Dr. Starr NguyenHemoglobin (Bld) [Mass/Vol]11.5 g/dLCritically low12.0-16.0[facility] HospitalComment on above:Performed By: #### CBC #### [facility] [address] [place] [address] Dr. Starr Melgar #0.05 10e3/ulCritically high0.00-0.03[facility] Comment on above:Performed By: #### CBC #### [facility] [address] [place] [address] Dr. Starr Melgar %0.4 %Normal0.0-0.5ThPremier HealthComment on above: Performed By: #### CBC #### [facility] [address] [place] [address] Dr. Starr Mike #2.5 103/ulNormal1.2-3.8The [facility] InstituteComment on above:Performed By: #### CBC #### [facility] [address] [place] [address] Dr. Starr Youngmphocytes/100 WBC (Bld)17.8 %Critically low20.5-60.0[facility] HospitalComment on above:Performed By: #### CBC #### [facility] [address] [place] [address] Dr. Starr ArauzUAL DIFF REQNONormalThe Narayan HospitalComment on above: Performed By: #### CBC #### [facility] [address] [address] [address] Starr Lawson (RBC) [Entitic mass]29.6 sjMgujvw80.7-34.0The [facility] InstituteComment on above:Performed By: #### CBC #### [facility] [address] [place] [address] Dr. Starr Lawson (RBC) [Mass/Vol]34.5 g/eZRycrwd14.9-35.2The [facility] InstituteComment on above:Performed By: #### CBC #### [facility] [address] [place] [address] Dr. Starr Lawson (RBC) [Entitic vol]85.8 oFWdmoyi03.0-99.0The [facility] InstituteComment on above:Performed By: #### CBC #### [facility] [address] [place] [address] Dr. Starr Smalls #0.6 103/ulNormal0.3-0.8The [facility] InstituteComment on above:Performed By: #### CBC #### [facility] [address] [place] [address] Dr. Starr Rondonocytes/100 WBC (Bld)4.4 %Normal1.7-12.0[facility] Comment on above:Performed By: #### CBC #### [facility] [address] [place] [address] Dr. Starr Timmons #10.6 103/ulCritically high1.4-6.5The [facility] Comment on above:Performed By: #### CBC #### [facility] [address] [place] [address] Dr. Starr Reynosoutrophils/100 WBC (Bld)75.3 %Critically high43.0-75.0The [facility] InstituteComment on above:Performed By: #### CBC #### [facility] [address] [place] [address] Dr. Starr Montgomery mean volume (Bld) [Entitic vol]9.8 fLNormal9.5-13.5The [facility] InstituteComment on above:Performed By: #### CBC #### [facility] [address] [place] [address] Dr. Starr NguyenPLT272 103/rvFqflro220-308Kok [facility] InstituteComment on above: Performed By: #### CBC #### [facility] [address] [place] [address] Dr. Starr NguyenRBC3.88 106/ulCritically low4.20-5.40The [facility] InstituteCombeaumont hospital on above:Performed By: #### CBC #### [facility] [address] [place] [address] Dr. Starr NguyenWBC14.0 103/ulCritically high4.0-11.0The [facility] on above:Performed By: #### CBC #### [facility] [address] [place] [address] Dr. Starr Carroll URINE PROFILEon 36-33-7528Qatfoeonc Ql (U)NegativeNormal NEGATIVECorey HospitalComment on above:Performed By: #### BARBARA OSMANICRO #### [facility] [address] [place] [address] Dr. Starr Perdomo (U)CLEARNormalCLEARCorey HospitalCombeaumont hospital on above: Performed By: #### JACQUI UMICRO #### [facility] [address] [place] [address] Dr. Starr Linton (U)LT. YELLOWNormalYELLOWCorey HospitalComment on above:Performed By: #### JACQUI UMICRO #### [facility] [address] [place] [address] Dr. Starr DoughertyDA micrscopic examination will be performed if indicated. NormalThe [facility] InstituteCombeaumont hospital on above:Performed By: #### JACQUI UMICRO #### [facility] [address] [place] [address] Dr. Starr Adlerose Ql (U)NegativeNormalNEGATIVECorey HospitalComment on above:Performed By: #### JACQUI, UMICRO #### [facility] [address] [address] [address] Starr NguyenHemoglobin Ql (U)NegativeNormalNEGATIVEThe [facility] on above:Performed By: #### JACQUI, UMICRO #### [facility] [address] [address] [address] Starr NguyenKetones Ql (U)NegativeNormalNEGATIVEThe [facility] Bay HospitalComment on above:Performed By: #### JACQUI, UMICRO #### [facility] [address] [address] [address] Starr NguyenLEUKOCYTESNegativeNormalNEGATIVECorey HospitalComment on above:Performed By: #### JACQUI UMICRO #### [facility] [address] [address] [address] Starr NguyenNitrite Ql (U)NegativeNormalNEGATIVEThe [facility] InstituteComment on above:Performed By: #### JACQUI UMICRO #### [facility] [address] [address] [address] Starr NguyenpH (U)6.0 [pH]Normal5-9The [facility] InstituteComment on above: Performed By: #### JACQUI UMICRO #### [facility] [address] [address] [address] Starr NguyenProtein (U) [Mass/Vol]100 mg/dLAbnormalNEGATIVE/ TRACEThe [facility] InstituteComment on above:Performed By: #### JACQUI UMICRO #### [facility] [address] [address] [address] Starr NguyenSPEC GRAVITY1.942Rjpfkq0.005-<=1.025The [facility] InstituteComment on above:Performed By: #### JACQUI, UMICRO #### [facility] [address] [address] [address] Starr NguyenUR MICRO INDINDICATEDNormalThe [facility] InstituteComment on above: Performed By: #### MARTINA OSMAN #### [facility] [address] [address] [address] Starr Oliverbilinogen Qn (U)0.2 {Stefan'U}/dLNormal0.2 - 1.0The [facility] InstituteComment on above:Performed By: #### MARTINA OSMAN #### [facility] [address] [address] [address] Starr NguyenPROF CHEM 8 (BAS METB)on 19-58-5640Bweun gap [Moles/Vol]13.1 mmol/LNormalThe [facility] InstituteComment on above:Performed By: #### BMP #### [facility] [address] [place] [address] Dr. Starr NguyenCalcium [Mass/Vol]8.8 mg/dLNormal8.5-10.1[facility] Comment on above:Performed By: #### BMP #### [facility] [address] [place] [address] Dr. Starr NguyenChloride [Moles/Vol]103 mmol/UBjlyor68-416Ixw [facility] Comment on above:Performed By: #### BMP #### [facility] [address] [place] [address] Dr. Starr NguyenCO2 [Moles/Vol]24.9 mmol/JWfzdtj02.0-32.0[facility] Comment on above:Performed By: #### BMP #### [facility] [address] [place] [address] Dr. Starr NguyenCreatinine [Mass/Vol]1.06 mg/dLCritically high0.55-1.02The [facility] InstituteComment on above:Performed By: #### BMP #### [facility] [address] [place] [address] Dr. Starr ShayGFR-AF DANISH>60Normal>=60The [facility] InstituteComment on above:Performed By: #### BMP #### [facility] [address] [place] [address] Dr. Starr ShayGFR-NON AF DANISH>60Normal>=60The [facility] InstituteComment on above:Performed By: #### BMP #### [facility] [address] [address] [address] Starr NguyenGlucose [Mass/Vol]97 mg/jVRwoxua97-282SgsCorey Hospital Comment on above:Performed By: #### BMP #### [facility] [address] [address] [address] Starr NguyenPotassium [Moles/Vol]4.0 mmol/LNormal3.5-5.1[facility] Comment on above:Performed By: #### BMP #### [facility] [address] [address] [address] Starr Akhtardium [Moles/Vol]137 mmol/YHweccs779-643Ama [facility] Comment on above:Performed By: #### BMP #### [facility] [address] [address] [address] Starr NguyenUrea nitrogen [Mass/Vol]7.0 mg/dLNormal7.0-18.0The [facility]view [facility] InstituteComment on above:Performed By: #### BMP #### [facility] [address] [address] [address] Starr Hudson nitrogen/Creatinine [Mass ratio]6.6 mg/mgNoThe University of Toledo Medical CenterComment on above:Performed By: #### BMP #### [facility] [address] [address] [address] Starr Hall MICROSCOPIC ONLYon 53-02-3150QTLEHTOICFXUXLcbwojpuZQZV SEEN Corey HospitalComment on above:Performed By: #### ТАТЬЯНА OSMANRO #### [facility] [address] [address] [address] Starr Hart identified Cx Nom (U)NOT INDICATEDNoThe University of Toledo Medical CenterComment on above:Performed By: #### ТАТЬЯНА OSMANRO #### [facility] [address] [address] [address] Starr Trevizo SEENNormalNONE SEENCorey HospitalComment on above:Performed By: #### ERUR, UMICRO #### [facility] [address] [address] [address] Starr Miller LM Nom (Urine sed)NONE SEENNormalNONE SEENThe [facility] InstituteCombeaumont hospital on above:Performed By: #### ERUR, UMICRO #### [facility] [address] [address] [address] Starr Gibsonthelial cells LM Ql (Urine sed)FEWAbnormalNONE SEEN /RAREThe [facility] InstituteCombeaumont hospital on above:Performed By: #### ERUR, UMICRO #### [facility] [address] [place] [address] Dr. Starr YoungE SEENNormalNONE SEENCorey HospitalCombeaumont hospital on above:Performed By: #### ERUR, UMICRO #### [facility] [address] [address] [address] Starr Rios SEENAbnormal0-2The [facility] InstituteCombeaumont hospital on above: Performed By: #### ERUR, UMICRO #### [facility] [address] [address] [address] Starr BrooksE SEENNormalNONE SEENCorey HospitalCombeaumont hospital on above: Performed By: #### ERUR, UMICRO #### [facility] [address] [place] [address] Dr. Starr Mccann OTHER TESTSOrdered By: Loyd Vilchis on 04-03-2022S. pyogenes Ag IA.rapid Ql (Throat)Negative (04/03/22 9:29 PM)NormalNegativeDRUMRIGHT [facility] [place] Man SeroMICRO OTHER TESTSOrdered By: Loyd Vilchis on 69-24-9819Wpigo COV Int NEG CtlPass (03/08/22 8:45 PM)NormalFT Man SeroRapid COV Int POS CtlPass (03/08/22 8:45 PM)NormalFT Man SeroS. pyogenes Ag IA.rapid Ql (Throat)Negative (03/08/22 8:45 PM)NormalNegativeFT Man SeroSARS-CoV+SARS-CoV-2 (COVID-19) Ag IA.rapid Ql (Resp)Not Detected (03/08/22 8:45 PM)NormalNot DetectedDRUMRIGHT REGIONAL HOS[facility] [place] Man SeroCOVID Quick Testingon 66-62-5865YqkpriXvhcfnzaRrwpk [employer] Other CHEMISTRYOrdered By: SYSTEM SYSTEM on 09-10-2021 Glucose (CSF) [Mass/Vol]46 mg/gKClaayk39 - 70 mg/dLDRUMRIGHT REGIONAL [facility] [place] RemisolProtein (CSF) [Mass/Vol]23.0 mg/nPSsktmb71.0 - 45.0 mg/dLDRUMRIGHT REGIONAL HOSPITAL – [place] RemisolHEMATOLOGYOrdered By: Ally Ng on 89-60-2174Huxvlpc (CSF)Clear (09/10/21 3:01 PM)NormalDRUMRIGHT REGIONAL HOSPITAL [facility] [place] HemeManSSColor (CSF)Colorless (09/10/21 3:01 PM)NormalDRUMRIGHT REGIONAL HOSPITAL [facility] [place] HemeManSSRBC Auto (CSF) [#/Vol]0Normal<=0DRUMRIGHT [facility] [place] HemeManSSTube Num FWV2Inaraxq Interpretation CodeDRUMRIGHT REGIONAL HOSPITAL [facility] [place] HemeManSSClarity (CSF) Clear (09/10/21 3:00 PM)NormalDRUMRIGHT REGIONAL HOSPITAL [facility] [place] HemeManSSColor (CSF)Colorless (09/10/21 3:00 PM)NormalDRUMRIGHT REGIONAL HOSPITAL [facility] [place] HemeManSSRBC Auto (CSF) [#/Vol]1High<=0DR[facility] [place] HemeManSSTube Num UJB6Zhmlclh Interpretation CodeDRUMRIGHT REGIONAL [facility]OS[facility]ITAL [facility] [place] HemeManSSNo Panel InformationOrdered By: Ally Ng on 73-52-3637MIC CSF0 cells/mcLNormal0 - 5 cells/mcLDRUMRIGHT REGIONAL HOSPITAL – [place] HemeManSSCBC AUTO DIFFon [id number] #0.0 103/ulNormal0.0-0.1 The [facility] InstituteComment on above:Performed By: #### CBC #### [facility] [address] [address] [address] Starr Cervantesphils/100 WBC (Bld)0.3 %Normal0.2-2.0The [facility] Comment on above:Performed By: #### CBC #### [facility] [address] [address] [address] Starr Guerra #0.2 103/ulNormal0.0-0.7The [facility] Health InstituteComment on above: Performed By: #### CBC #### [facility] [address] [place] [address] Dr. Starr Shayosinophils/100 WBC (Bld)3.3 %Normal0.9-7.0The [facility] Comment on above:Performed By: #### CBC #### [facility] [address] [place] [address] Dr. Starr Shayrythrocyte distribution width (RBC) [Ratio]12.0 %Sjdehm62.0-15.0 The [facility] InstituteComment on above:Performed By: #### CBC #### [facility] [address] [place] [address] Dr. Starr NguyenHematocrit (Bld) [Volume fraction]39.3 %Maswpp29.0-48.0The [facility] InstituteComment on above:Performed By: #### CBC #### [facility] [address] [place] [address] Dr. Starr NguyenHemoglobin (Bld) [Mass/Vol]13.0 g/bOGhppzw30.0-16.0The [facility] InstituteComment on above:Performed By: #### CBC #### [facility] [address] [place] [address] Dr. Starr Melgar #0.03 10e3/ulNormal0.00-0.03The [facility] InstituteComment on above:Performed By: #### CBC #### [facility] [address] [place] [address] Dr. Starr Melgar %0.4 %Normal0.0-0.5The [facility] InstituteComment on above: Performed By: #### CBC #### [facility] [address] [place] [address] Dr. Starr WellsH #2.2 103/ulNormal1.2-3.8The [facility] InstituteComment on above:Performed By: #### CBC #### [facility] [address] [place] [address] Dr. Starr Youngmphocytes/100 WBC (Bld)31.5 %Ztocho22.5-60.0The [facility] Hospitalment on above:Performed By: #### CBC #### [facility] [address] [place] [address] Dr. Starr Castellano DIFF REQNONormalThe [facility] InstituteComment on above: Performed By: #### CBC #### [facility] [address] [place] [address] Dr. Starr Lawson (RBC) [Entitic mass]29.3 bkMzutjl51.7-34.0The [facility] Hospitalment on above:Performed By: #### CBC #### [facility] [address] [place] [address] Dr. Starr Lawson (RBC) [Mass/Vol]33.1 g/vWNrdhni68.9-35.2The [facility] Hospitalment on above:Performed By: #### CBC #### [facility] [address] [place] [address] Dr. Starr Lawson (RBC) [Entitic vol]88.7 fVGitzqz24.0-99.0The [facility] Hospitalment on above:Performed By: #### CBC #### [facility] [address] [place] [address] Dr. Starr Smalls #0.2 103/ulCritically low0.3-0.8The [facility] Hospitalment on above:Performed By: #### CBC #### [facility] [address] [place] [address] Dr. Starr Rondonocytes/100 WBC (Bld)3.3 %Normal1.7-12.0The [facility] Comment on above:Performed By: #### CBC #### [facility] [address] [place] [address] Dr. Starr Timmons #4.3 103/ulNormal1.4-6.5The [facility] Hospitalment on above:Performed By: #### CBC #### [facility] [address] [address] [address] Starr Reynosoutrophils/100 WBC (Bld)61.2 %Cgswzb68.0-75.0The [facility] on above:Performed By: #### CBC #### [facility] [address] [address] [address] Starr Knapplet mean volume (Bld) [Entitic vol]9.4 fLCritically low 9.5-13.5The [facility] on above:Performed By: #### CBC #### [facility] [address] [place] [address] Dr. Starr NguyenPLT325 103/gaJlxeuq901-001Srj [facility] on above: Performed By: #### CBC #### [facility] [address] [place] [address] Dr. Starr NguyenRBC4.43 106/ulNormal4.20-5.40The [facility] on above:Performed By: #### CBC #### [facility] [address] [place] [address] Dr. Starr NguyenWBC7.0 103/ulNormal4.0-11.0The [facility] on above: Performed By: #### CBC #### [facility] [address] [place] [address] Dr. Starr NguyenPROTIMEanjelica 77-09-4666IPO Coag (PPP) [Relative time]0.95 {INR} NormalThe [facility] on above:Performed By: #### PT, PTT #### [facility] [address] [place] [address] Dr. Starr Noonan GUIDELINESSEE [facility] on above:Result Comment: DESIRED INR: 2.0 - 3.0 CONDITIONS NOT LISTED BELOW 2.5 - 3.5 FOR PROSTHETIC HEART VALVE REPLACEMENT 2.5 - 3.5 RECURRENT THROMBOSIS Performed By: #### PT, PTT #### [facility] [address] [place] [address] Dr. Starr Hoang Coag (PPP) [Time]10.3 sNormal9.0-11.6The [facility] Comment on above:Performed By: #### PT, PTT #### [facility] [address] [place] [address] Dr. Starr HoangTon 83-47-3728kEIW Coag (Bld) [Time]27.9 hExpeee74.3-36.2Corey HospitalComment on above:Performed By: #### PT, PTT #### [facility] [address] [place] [address] Dr. Starr Hall Cultureon 44-43-2131Amtzgcgx identified Cx Nom (U)Final reportCritically abnormal.[facility]ion Community HospitalComment on above: Order Comment: Reason for Exam DysuriaPerformed By: #### URINE CULTURE #### [facility] ,Ur Cult Antimic SuceptibilityNormal.[facility] HospitalComment on above:Order Comment: Reason for Exam DysuriaResult Comment: S = Susceptible; I = Intermediate; R = Resistant P = Positive; N = Negative MICS are expressed in micrograms per mL Antibiotic RSLT#1 RSLT#2 RSLT#3 RSLT#4 Amoxicillin/Clavulanic Acid S Ampicillin R Cefazolin S Cefepime S Ceftriaxone S Cefuroxime I Ciprofloxacin S Ertapenem S Gentamicin S Imipenem S Levofloxacin S Meropenem S Nitrofurantoin S Piperacillin/Tazobactam S Tetracycline S Tobramycin S Trimethoprim/Sulfa S Performed at: - [facility] [id number] [place] Keeper: Terrence Davenport PhD, Phone: [phone] PERFORMED BY: [place] [address] PATHOLOGIST STULL INSTALLER HUMZA RUELAS M.D.Performed By: #### URINE CULTURE #### [facility] ,Urine Culture, Res 1Escherichia coliCritically abnormal.[facility] HospitalComment on above:Order Comment: Reason for Exam DysuriaResult Comment: 10,000-25,000 colony forming units per mL Cefazolin with an JIA <=16 predicts susceptibility to the oral agents cefaclor, cefdinir, cefpodoxime, cefprozil, cefuroxime, cephalexin, and loracarbef when used for therapy of uncomplicated urinary tract infections due to E. coli, Klebsiella pneumoniae, and Proteus mirabilis.Performed By: #### URINE CULTURE #### [facility] ,HCG, ,Urineon 26-89-4456Tznx HCG ( test) Ql (U)NegativeNormal NEGParkwood HospitalComment on above:Performed By: #### BIBIANA BRAY [facility] #### [facility] [address] [place], [place] [id number] [place] Keeper: Lakhwinder Lao MDUrinalysis, Routineon 27-16-3385Nighfdpidqx Acid,UrNegativeNormalNEGParkwood HospitalComment on above:Performed By: #### [facility]ARD BRAY [facility] #### [facility] [address] [place], [place] [id number] [place] Keeper: Lakhwinder Lao MDBilirubin, SemiQt,UrNegativeNormndNEGParkwood HospitalComment on above:Performed By: #### [facility] #### [facility] [address] [place], [place] [id number] [place] Keeper: ABNER Jiangolor (U)YELLOWGeorgetown Behavioral Hospital Comment on above:Performed By: #### [place] BRAY [facility] #### [facility] [address] [place], [place] [id number] [place] Keeper: Maryana JiangCleveland Clinic Marymount HospitalComment on above:Performed By: #### [facility] #### [facility] [address] [place], [place] [id number] [place] Keeper: Lakhwinder Lao MDGlucose Ql (U)NegativeNormalNEGParkwood HospitalComment on above:Performed By: #### [place] BRAY [facility] #### [facility] [address] [place], [place] [id number] [place] Keeper: Lakhwinder Lao MDHemoglobin, Ur3+AbnormalRegency Hospital Cleveland East Comment on above:Performed By: #### [place] BRAY [facility] #### [facility] [address] [place] [address] [place] Keeper: Lakhwinder Lao MDLeukocyte esterase Test strip Ql (U)Negative NormalNEGParkwood HospitalComment on above:Performed By: #### [place] BRAY [facility] #### [facility] [address] [place] [address] [place] Keeper: Jerald Jiangite,UrNegativeNormCincinnati Children's Hospital [facility] Comment on above:Performed By: #### [place] BRAY [facility] #### [facility] [address] [phone] [place] Keeper: Lakhwinder Lao [facility] (U)5.0 [pH]Normal5.0-8.0[facility] Comment on above:Performed By: #### B[place] BRAY [facility] #### [facility] [address] [place] [address] [place] Keeper: MINO Jiangrotein Ql (U)2+AbnormalRegency Hospital Cleveland East Comment on above:Performed By: #### KATARINA ELIDA [facility] #### [facility] [address] [phone] [place] Keeper: BINU Jiangpecific gravity (U) [Rel density]1.020Normal 1.005-1.030Parkwood HospitalComment on above:Performed By: #### [facility] BRAY [facility] #### [facility] [address] [place], [place] [address] [place] Keeper: Lkahwinder Lao MDTurbidityCLOUDYAbnormalCBluffton Hospital on above:Performed By: #### [facility] #### [facility] [address] [place], [place] [phone] [place] Keeper: Lakhwinder Lao MDUrobilinogen,UrNormalNormalNOProtestant Hospital on above:Performed By: #### [place]NA BRAY [facility] #### [facility] [address] [place] [address] [place] Keeper: Lakhwinder Lao MDUrinalysis,Microon 01-05-2019-----NormalParkwood HospitalCombeaumont hospital on above:Performed By: #### [facility] #### [facility] [address] [phone] [place] Keeper: Lakhwinder Lao MDEpithelial cells LM.HPF (Urine sed) [#/Area]0 TO 2NormalParkwood HospitalCombeaumont hospital on above:Performed By: #### [facility] #### [facility] [address] [place], [place] [id number] [place] Keeper: LUKE JiangBC (U) [#/Vol]20 TO 19Glfnny7-6Rnchy [facility] Medical CenterCombeaumont hospital on above:Performed By: #### [facility] #### [facility] [address] [place], [place] [id number] [place] Keeper: Nury Jiang sediment LM Ql (Urine sed)NOT REPORTED NormalNONEMeGuernsey Memorial Hospital on above:Performed By: #### [facility] #### [facility] [address] [place], [place] [phone] [place] Keeper: Temi Jiangeria LM.HPF (Urine sed) [#/Area]NOT REPORTED NormalNONEMeUniversity Hospitals TriPoint Medical Center HospitalComment on above:Performed By: #### WILLARD BRAY, [facility] #### [facility] [address] [place] [address] [place] Keeper: ABNER Jiangasts LM.LPF (Urine sed) [#/Area]NOT REPORTED NormalMercy Windham HospitalComment on above:Performed By: #### BIBIANA BRAY, [facility] #### [facility] [address] [place] [address] [place] Keeper: ABNER Jiangrystals LM Nom (Urine sed)NOT REPORTEDNormalNONE [facility] HospitalComment on above:Performed By: #### KATARINA CHEO, [facility] #### [facility] [address] [place] [address] [place] Keeper: Lakhwinder Lao MDEpithelial, RenalNOT MRFJETXFQrhkgb2Urlep Windham HospitalComment on above:Performed By: #### K[facility]INA [facility], [facility] #### [facility] [address] [place] [address] [place] Keeper: JEFF Jiangucus StrandsNOT REPORTEDNormalNONEMercy Windham HospitalComment on above:Performed By: #### [facility]INA [facility], [facility] #### [facility] [address] [place] [address] [place] Keeper: Lakhwinder Lao MDOther ObservationsNOT REPORTEDNormalNREQRegency Hospital Companycy Windham HospitalComment on above:Performed By: #### KATARINA [facility], [facility] #### [facility] [address] [place] [address] [place] Keeper: Lakhwinder Lao MDTrichomonasNOT REPORTEDNormalNONEMercy Windham HospitalComment on above:Performed By: #### KATARINA BIBIANA, [facility] #### [facility] [address] [place] [address] [place] Keeper: IBRAHIMA Jiang (U) [#/Vol]NOT TNJWVROPVsrrqa0CzcglParkwood HospitalComment on above:Performed By: #### KATARINA [facility] #### [facility] [address] [place] [address] [place] Keeper: Queta Jiang LM Ql (Urine sed)NOT REPORTEDNormalNONE Parkwood HospitalComment on above:Performed By: #### KATARINA [facility] #### [facility] [address] [place] [address] [place] Keeper: Lakhwinder Lao MDMicroscopic Urinalysison 20-65-4711Pfdlzmddf, UA NOT REPORTEDNoneMercy Health- [place], KYBacteria, UANOT REPORTEDNoneMercy Health- [place], KYCasts UANOT REPORTED/LPFMercy Health- [place], KYCrystals UANOT REPORTEDNone /HPFMercy Health- [place], KYEpithelial Cells UA0 TO 2/HPFMercy Health- [place], KYMucus, UANOT REPORTEDNoneMercy Health- [place], KYOther Observations UANOT REPORTEDNOT REQ. [facility] [place], KYRBC (U) [#/Vol]20 TO 50[facility]- [place], KYRenal Epithelial, UrineNOT REPORTED0 /HPFMercy Health- [place], KYTrichomonas, UANOT REPORTEDNoneMercy Health- [place], KYWBC, UANOT REPORTED0 /HPFMercy Health- [place], KYYeast, UANOT REPORTEDNoneMer[facility] Health- [place], [place]-[facility]- [place], KYPregnancy, Urineon 31-81-8320Nyjn HCG ( test) Ql (U)NegativeNEGATIVEMercy Health- [place], [place] Urinalysison 53-39-4524Whddvrjtp UrineNegativeNEGATIVEMercy Health- [place], KYColor, UAYELLOWYELLOWMercy Health- [place], KYGlucose, UrNegativeNEGATIVEMercy Health- [place], KYInterpretation and review of laboratory resultsAbnormalMercy Health- [place], [place] Ketones Ql (U)NegativeNEGATIVEMercy Health- [place], KYLeukocyte esterase Test strip Ql (U)NegativeNEGATIVEMercy Health- [place], KYNitrite, UrineNegativeNEGATIVEMercy Health- [place], KYpH, UA5.0[facility]- [place], KYProtein (U) [Mass/Vol]2+Abnormal NEGATIVEMercy Health- [place], KYSpecific [place], UA1.020[facility]- [place], [place] Turbidity UACLOUDYAbnormalCLEARMercy Health- [place], KYUrinalysis CommentsMercy Health- [place], KYUrine Hgb3+AbnormalNEGATIVEMercy Health- [place], KYUrobilinogen, Urine NormalNormalMercy Health- [place], [place] Vital Signs Date TimeVital SignValuePerforming YkwurvxrjFcsipmwg09-12-7297 11:04-0400Body afeeis234.56 cmSsahra Hauser [facility]- Work Phone: [phone] [place], [place] 9893408-20-2025 11:04-0400 Body mass index (BMI) [Ratio]42.2 kg/h8Pgoapyhbikip Hauser [facility]- Work Phone: [phone] [place], [place] 9893408-20-2025 11:04-0400 Body hnpyttxfvnp71.7 [degF]Divine Hauser [facility]- Work Phone: [phone] [place], [place] 9893408-20-2025 11:04-0400 Body .58 kgStkip Hauser [facility]- Work Phone: [phone] [place], [place] [address]8-20-2025 11:04-0400 Diastolic blood ocsrzbiq78 mm[Hg]Divine Hauser [facility]- Work Phone: [phone] [place], [place] 9893408-20-2025 11:04-0400 Heart rate62 /minSsahra Hauser [facility]-BC Work Phone: [phone] [place], [place] 9893408-20-2025 11:04-0400 Respiratory rate16 /minSsahra Hauser [facility]- Work Phone: [facility]08-20-2025 11:04-0400 SaO2% (BldA) [Mass fraction]97 %Divine Hauser [facility]- Work Phone: [facility]08-20-2025 11:04-0400 Systolic blood evzfzntf543 mm[Hg]Divine Hauser [facility]- Work Phone: [facility]07-11-2025 11:52-0400 Body serqgl355.6 cmBrjessica Dash PERFORATING MACHINE OPERATOR-CONVERTING SUPERVISOR Work Phone: [facility] MEDOP Lfxltn08-70-9025 11:52-0400Body mass index (BMI) [Ratio]41.35 kg/u6Phwluv Hardy PERFORATING MACHINE OPERATOR-CONVERTING SUPERVISOR Work Phone: [facility] Ajbrjb31-04-2498 11:52-0400Body laoxssxhixn11.29 [degF]Nu Hardy PERFORATING MACHINE OPERATOR-CONVERTING SUPERVISOR Work Phone: [facility] Flrxyv07-63-2008 11:52-0400Body .32 kgBriana Hardy PERFORATING MACHINE OPERATOR-CONVERTING SUPERVISOR Work Phone: [facility] Jixurp46-05-9516 11:52-0400Diastolic blood mm[Hg]Nu Hardy PERFORATING MACHINE OPERATOR-CONVERTING SUPERVISOR Work Phone: [facility] Zyoyae60-88-6507 11:52-0400Heart rate 76 /minBriana Hardy PERFORATING MACHINE OPERATOR-CONVERTING SUPERVISOR Work Phone: [facility] Msxzcr06-28-9196 11:52-0400 Respiratory rate18 /minBriana Hardy PERFORATING MACHINE OPERATOR-CONVERTING SUPERVISOR Work Phone: [facility] Bwrgxl95-42-8028 11:52-9396OaQ4% (BldA) [Mass fraction]97 %Nu Dash PERFORATING MACHINE OPERATOR-CONVERTING SUPERVISOR Work Phone: [facility] Iukzyo14-39-2055 11:52-0400Systolic blood dksyzdzv284 mm[Hg]Nu Dash LUCAS-CONVERTING SUPERVISOR Work Phone: [facility] Yrvtne32-51-6723 17:04-0400Heart rate 64 /minReg[facility] Hospital [facility]05-25-2025 17:04-0400 Respiratory rate12 /minReg[facility] Hospital [facility]05-25-2025 17:04-6031ApK0% (BldA) [Mass fraction]100 %[facility]05-25-2025 17:04-0400Diastolic blood oqnvysok41 mm[Hg][facility]05-25-2025 17:04-0400Mean blood nzesrfrl015 mm[Hg][facility]05-25-2025 17:04-0400Systolic blood pressure 146 mm[Hg][facility]05-25-2025 16:50-8388TlI0% (BldA) [Mass fraction]100 %[facility]05-25-2025 16:50-0400Heart rate67 /minRegency Hospital [facility]05-25-2025 16:50-0400Respiratory rate18 /minReg[facility] Hospital [facility] 08-12-2024 16:50-0400Diastolic blood mm[Hg][facility]05-25-2025 16:50-0400Systolic blood mm[Hg][facility]05-25-2025 16:50-0400Mean blood bmmrtibg424 mm[Hg][facility]05-25-2025 15:34-0400Diastolic blood tqsfucjw82 mm[Hg][facility]05-25-2025 15:34-0400Systolic blood mm[Hg][facility]05-25-2025 15:34-0400Mean blood njalzogb710 mm[Hg][facility]05-25-2025 15:34-0400Respiratory rate19 /minWood [facility]05-25-2025 15:34-6938EpZ5% (BldA) [Mass fraction] 100 %[facility]05-25-2025 15:33-0400Heart rate 66 /minReg[facility] Hospital [facility]05-25-2025 14:30-0400Body etyaapejisf58.88 [degF][facility]05-25-2025 14:30-0400Heart rate78 /minRegency Hospital Cleveland [place]-25-2025 14:30-0400Respiratory rate20 /[facility]-08-2024 08:07-0400Diastolic blood yvyycdnl68 mm[Hg]Melissa Oberneder PERFORATING MACHINE OPERATOR-CONVERTING SUPERVISOR Work Phone: [facility]05-21-2025 08:07-0400Heart rate 64 /minHeather Oberneder PERFORATING MACHINE OPERATOR-CONVERTING SUPERVISOR Work Phone: [facility]05-21-2025 08:07-0400Systolic blood tusxlvds100 mm[Hg]Melissa Oberneder PERFORATING MACHINE OPERATOR-CONVERTING SUPERVISOR Work Phone: [facility]05-21-2025 08:04-0400Body jkzylx926.6 cmHeather Oberneder PERFORATING MACHINE OPERATOR-CONVERTING SUPERVISOR Work Phone: [facility]05-21-2025 08:04-0400Body mass index (BMI) [Ratio]42.05 kg/o0Przijgd Oberneder PERFORATING MACHINE OPERATOR-CONVERTING SUPERVISOR Work Phone: [facility]05-21-2025 08:04-0400Body .13 kgHeather Oberneder PERFORATING MACHINE OPERATOR-CONVERTING SUPERVISOR Work Phone: [facility]05-21-2025 08:04-0400 Respiratory rate17 /minHeather Oberheriberto PERFORATING MACHINE OPERATOR-CONVERTING SUPERVISOR Work Phone: [facility] MEDOP Kbfehm37-55-7815 15:14-0400Body uamwuk322 cmNu Dash PERFORATING MACHINE OPERATOR-CONVERTING SUPERVISOR Work Phone: [facility]05-15-2025 15:14-0400Body mass index (BMI) [Ratio]43.27 kg/a8ClhlfzNu Dash PERFORATING MACHINE OPERATOR-CONVERTING SUPERVISOR Work Phone: [facility]05-15-2025 15:14-0400Body lapumysxkgv41.5 [degF]Nu Dash PERFORATING MACHINE OPERATOR-CONVERTING SUPERVISOR Work Phone: [facility]05-15-2025 15:14-0400Body .77 kgNu Dash PERFORATING MACHINE OPERATOR-CONVERTING SUPERVISOR Work Phone: [facility]05-15-2025 15:14-0400Diastolic blood pkwdwroi25 mm[Hg]Nu Dash PERFORATING MACHINE OPERATOR-CONVERTING SUPERVISOR Work Phone: [facility] MEDOP Utjgux57-59-3455 15:14-0400Heart rate 87 /minBrjessica Dash PERFORATING MACHINE OPERATOR-CONVERTING SUPERVISOR Work Phone: [facility]05-15-2025 15:14-0400 Respiratory rate18 /minNu Dash PERFORATING MACHINE OPERATOR-CONVERTING SUPERVISOR Work Phone: [facility]05-15-2025 15:14-8490ZtM2% (BldA) [Mass fraction]98 %Nu Dash PERFORATING MACHINE OPERATOR-CONVERTING SUPERVISOR Work Phone: [facility]05-15-2025 15:14-0400Systolic blood kimmqalm696 mm[Hg]Nu Dash PERFORATING MACHINE OPERATOR-CONVERTING SUPERVISOR Work Phone: [facility]03-04-2025 13:14-0500Body arhmez435 cmTsergio Hoff DO Work Phone: [facility] MEDOP Pwpgwo45-80-8485 13:14-0500Body mass index (BMI) [Ratio]42.44 kg/h3RhcrgTraci Hoff DO Work Phone: [facility]03-04-2025 13:14-0500Body yllwdp520.68 kgTraci Hoff DO Work Phone: [facility] HospitalBioniz Jjsuve69-69-1007 13:14-0500Diastolic blood fwnouken23 mm[Hg]Traci Hoff DO Work Phone: [facility] Uhalgl69-96-3715 13:14-0500Systolic blood jzckvtah982 mm[Hg]Traci Hoff DO Work Phone: [facility] Diwiie19-44-2581 12:56-0500Body .3 cmNu Dash APRN-ZEFERINO Work Phone: [facility] Qehmcn63-68-3621 12:56-0500Body mass index (BMI) [Ratio]38.83 kg/y9OkipiwNu Dash APRN-ZEFERINO Work Phone: [facility] Vfgbug78-17-0316 12:56-0500Body xxpeqxiowst47.59 [degF]Nu Dash APRN-CONVERTING SUPERVISOR Work Phone: [facility] Kpnief23-92-9972 12:56-0500Body xwcqil354.56 kgNu Dash APRN-CONVERTING SUPERVISOR Work Phone: [facility] Avoghe70-29-5939 12:56-0500Diastolic blood israbycl01 mm[Hg]Nu Dash PERFORATING MACHINE OPERATOR-CONVERTING SUPERVISOR Work Phone: [facility] HospitalBioniz Mcitfe07-85-0592 12:56-0500Heart rate 82 /minNu Dash APRN-CONVERTING SUPERVISOR Work Phone: [facility] Ocbbme04-53-5388 12:56-0500 Respiratory rate18 /minBrjessica Dash PERFORATING MACHINE OPERATOR-CONVERTING SUPERVISOR Work Phone: [facility] Pxrlcn71-17-2588 12:56-1553FpG6% (BldA) [Mass fraction]96 %Nu Dash APRN-CONVERTING SUPERVISOR Work Phone: [facility]02-06-2025 12:56-0500Systolic blood epstdfgo683 mm[Hg]Nu Dash APRN-CONVERTING SUPERVISOR Work Phone: [facility]02-06-2025 10:58-0500Body ybcbej829.6 cmTsergio Hoff DO Work Phone: [facility]02-06-2025 10:58-0500Body mass index (BMI) [Ratio]41.71 kg/v3PrlcjTraci Hoff DO Work Phone: [facility]02-06-2025 10:58-0500Body npaxyr032.22 kgTraci Hoff DO Work Phone: [facility]02-06-2025 10:58-0500Diastolic blood fpleayhk29 mm[Hg]Traci Hoff DO Work Phone: [facility]02-06-2025 10:58-0500Systolic blood cahysbyu474 mm[Hg]Traci Hoff DO Work Phone: [facility]02-03-2025 21:44-0500Diastolic blood iciuctwp99 mm[Hg]Osmar Duran [facility]02-03-2025 21:44-0500Heart rate62 /Raúl Duran [facility]02-03-2025 21:44-0500Mean blood klknmozf87 mm[Hg]Osmar Duran [facility]02-03-2025 21:44-0500 Respiratory rate16 /minOsmar Moralesen [facility]02-03-2025 21:44-9481EqL3% (BldA) [Mass fraction]97 %Barbaran Andrewen [address]02-03-2025 21:44-0500 Systolic blood hmoavsel149 mm[Hg]Kaylinn Dokken [address] [place], [place] 6407902-03-2025 21:08-0500 Diastolic blood cxfkigvi64 mm[Hg]Kaylinn Dokken [address] [place], [place] 6407902-03-2025 21:08-0500Heart rate69 /minKaylinn Dokken [address] [place], [place] 6407902-03-2025 21:08-0500Mean blood yogtlics430 mm[Hg]Kaylinn Dokken [address] [place], [place] 6407902-03-2025 21:08-0500 Respiratory rate16 /minKaylinn Dokken [address] [place], [place] 6407902-03-2025 21:08-0240VdL1% (BldA) [Mass fraction]97 %Kaylinn Dokken [address] [place], [place] 6407902-03-2025 21:08-0500 Systolic blood itkubbfl374 mm[Hg]Kaylinn Dokken [address] [place], [place] 6407902-03-2025 20:25-0500Body acvgtcduwdp37.42 [degF]Kaylinn Dokken [address] [place], [place] 6407902-03-2025 20:25-0500 Diastolic blood zggilwia47 mm[Hg]Kaylinn Dokken [address] [place], [place] 6407902-03-2025 20:25-0500Heart qoeh303 /minKaylinn Dokken [address] [place], [place] 6407902-03-2025 20:25-0500 Respiratory rate18 /minKaylinn Dokken [address] [place], [place] 6407902-03-2025 20:25-7359QwP6% (BldA) [Mass fraction]96 %Osmar Duran [facility]02-03-2025 20:25-0500 Systolic blood goqjwyto406 mm[Hg]Osmar Duran [facility]01-29-2025 12:42-0500Body jbhnqu284.[address]01-29-2025 12:42-0500Body mass index (BMI) [Ratio]41.2 kg/m2Pmh [address] [place], [place] 9551901-29-2025 12:42-0500Body yzjwof351.[address] [place], [place] 9551901-10-2025 15:51-0500Diastolic blood fyhrprew87 mm[Hg]Zoya Thakur MD Work Phone: [facility]01-10-2025 15:51-0500Heart rate 89 /minZoya Thakur MD Work Phone: [facility]01-10-2025 15:51-0500Systolic blood mm[Hg]Zoya Thakur MD Work Phone: [facility]01-10-2025 15:49-0500Body mass index (BMI) [Ratio]41.88 kg/m2Zoya Thakur MD Work Phone: [facility]01-10-2025 15:49-0500Body .68 kgZoya Thakur MD Work Phone: [facility]01-10-2025 15:49-8315FtR7% (BldA) [Mass fraction]98 %Zoya Thakur MD Work Phone: [facility]01-07-2025 14:26-0500Body bfuemu378.6 [facility] Hospitalanycaterina Hoff DO Work Phone: [facility]01-07-2025 14:26-0500Body mass index (BMI) [Ratio]41.16 kg/a7Figgk Hoff DO Work Phone: [facility]01-07-2025 14:26-0500Body wnabmn445.77 kgTraci Hoff DO Work Phone: [facility]01-07-2025 14:26-0500Diastolic blood lzolamkx91 mm[Hg]Traci Hoff DO Work Phone: [facility]01-07-2025 14:26-0500Systolic blood qpdoxfka942 mm[Hg]Traci Hoff DO Work Phone: [facility]06-13-2024 15:34-0400Body zyeotf931.56 [facility] 15:34-0400Body mass index (BMI) [Ratio]42.9 kg/v9NdolgsgwaGalion Community Hospital06-13-2024 15:34-0400Body qrgjevlwija02.9 [degF][facility]06-13-2024 15:34-0400Body ozulng975.39 kgGal[facility]06-13-2024 15:34-0400Diastolic blood uzanxocj31 mm[Hg][facility] 09-01-2023 15:34-0400Heart rate99 /[facility] 09-01-2023 15:34-0400Respiratory rate18 /[facility] 09-01-2023 15:34-8980YbL1% (BldA) [Mass fraction]97 %[facility]06-13-2024 15:34-0400Systolic blood ypvgjqnh458 mm[Hg][facility]02-11-2024 14:35-0500Body gqsctsybocl52.7 [degF]Brian De La Cruz [facility]02-11-2024 14:35-0500 Diastolic blood mm[Hg]Brian De La Cruz [facility]02-11-2024 14:35-0500Heart rate74 /Xi De La Cruz [address] [place], [place] 6407902-11-2024 14:35-0500 Respiratory rate18 /minBrian De La Cruz [address] [place], [place] 6407902-11-2024 14:35-7458WeR2% (BldA) [Mass fraction]97 %Brian De La Cruz [address] [place], [place] 9912902-11-2024 14:35-0500 Systolic blood sfpxvivo785 mm[Hg]Brian De La Cruz [address]11-23-2023 15:34-0500Body ugtpoydbaob20.88 [degF]Andi Parrishe [address]11-23-2023 15:34-0500 Diastolic blood vaalgmjt14 mm[Hg]Andi Parrishe [address]11-23-2023 15:34-0500Heart rate69 /pegAndi Ji [address]11-23-2023 15:34-0500 Respiratory rate18 /Sari Workman [address] [place], [place] 9912911-23-2023 15:34-1777ZrV0% (BldA) [Mass fraction]98 %Andi Workman [address] [place], [place] 9912911-23-2023 15:34-0500 Systolic blood vmbsbmfu031 mm[Hg]Andi Parrishe [address] [place], [place] 9912908-25-2023 19:08-0400Body osihlalssvx36.7 [degF]Osmar Duran [address] [place], [place] 9912908-25-2023 19:08-0400 Diastolic blood djcakndr99 mm[Hg]Kaylinn Dokken [address] [place], [place] 9912908-25-2023 19:08-0400Heart rate86 /minKaylinn Dokken [address] [place], [place] 6407908-25-2023 19:08-0400 Respiratory rate16 /minKaylinn Dokken [address] [place], [place] 6407908-25-2023 19:08-8647DdN8% (BldA) [Mass fraction]96 %Kaylinn Dokken [address] [place], [place] 6407908-25-2023 19:08-0400 Systolic blood zbipawka858 mm[Hg]Kaylinn Dokken [address] [place], [place] 6407901-14-2023 21:01-0500Body mnazqjjgzlc31.42 [degF]Kaylinn Dokken [address] [place], [place] 6407901-14-2023 21:01-0500 Diastolic blood mm[Hg]Kaylinn Dokken [address] [place], [place] 6407901-14-2023 21:01-0500Heart rate82 /minKaylinn Dokken [address] [place], [place] 6407901-14-2023 21:01-0500 Respiratory rate16 /minKaylinn Dokken [address] [place], [place] 6407901-14-2023 21:01-8053RwY8% (BldA) [Mass fraction]98 %Kaylinn Dokken [address] [place], [place] 6407901-14-2023 21:01-0500 Systolic blood qqqrdbya213 mm[Hg]Kaylinn Dokken [address] [place], [place] 6407912-19-2022 21:44-0500Heart rate99 /minKaylinn Dokken [address] [place], [place] 6407912-19-2022 21:44-0500 Respiratory rate16 /minKaylinn Dokken [address]12-19-2022 21:44-5689TbX3% (BldA) [Mass fraction]99 %Osmar Moralesen [address]12-19-2022 19:29-0500Body mzmwkaroouv54.06 [degF]Barbaran Andrewen [address]12-19-2022 19:29-0500 Diastolic blood ktogndpc560 mm[Hg]Barbaran Andrewen [address] [place], [place] 9912912-19-2022 19:29-0500Heart rate98 /minBarbaran Roger [address] [place], [place] 9912912-19-2022 19:29-0500 Respiratory rate16 /minBarbaran Roger [address] [place], [place] 9912912-19-2022 19:29-8444LqY8% (BldA) [Mass fraction]99 %Osmar Duran [address] [place], [place] 9912912-19-2022 19:29-0500 Systolic blood qdzsockh363 mm[Hg]Osmar Moralesen [address] [place], [place] 6407907-07-2022 13:30-0400Body bvxeqj203.56 Yenny Hauser Other [employer] Other 07-07-2022 13:30-0400Body mass index (BMI) [Ratio] 41.71 kg/v0BciencmfiDivine Hauser Other [employer] Other 07-07-2022 13:30-0400Body gbvvytjpoir57.5 [degF] Divine Hauser Other [employer] Other 07-07-2022 13:30-0400Body fyacgt836.22 kgStkip Hauser Other [employer] Other [id number] 13:30-0400Respiratory rate18 /minSsahra Hauser Other [employer] Other 07-07-2022 13:30-8980BiD3% (BldA) [Mass fraction]97 % Divine Hauser Other [employer] Other 11-07-2019 19:53-0500BMI (Body Mass Index)34.95 kg/m2 [facility], MM57-50-5272 19:53-0500Body Ypsrmntmgqy07.81 [degF][facility], SM77-08-3736 19:53-0500Body emuqck61.25 kgBu[facility], NU95-21-4210 19:53-0500BP Irfimvpyj81 mm[Hg] [facility], OD87-80-9408 19:53-0500BP Aodqhrdu400 mm[Hg] [facility], UX92-57-8650 19:53-4784Psrrps340.1 cmVWVUMedicine [facility], PX95-23-1655 19:53-0500Pulse (Heart Rate)71 /min [facility], DC58-78-7634 19:53-0500Pulse Hgrgsvvv531 % [facility], MS99-63-1613 19:53-0500Respiratory Rate18 /min [facility], YB87-66-8123 22:47-0400BMI (Body Mass Index) 35.36 kg/v3OpylfjvBucyrus Community Hospital, HY52-53-7505 22:47-0400Body Qprsmjzirsm91.81 [degF][facility], VD60-05-0671 22:47-0400 Body bsinxv79.44 kgBucyrus Community Hospital, KR49-80-4873 22:47-0400BP Wejyritki67 mm[Hg][facility], KX10-72-2950 22:47-0400BP Ysmizird128 mm[Hg][facility], IL04-59-7841 22:47-0400 Swzjoq862.6 cmVWVUMedicine Harrison [facility] Hospital, ZJ68-76-1784 22:47-0400Pulse (Heart Rate)88 /minBu[facility], PH64-10-8617 22:47-0400 Pulse Fdeswxwr29 %[facility], MN04-70-9373 22:47-0400 Respiratory Rate18 /minBucyrus [facility], [place] Encounters Encounter DateEncounter TypeCare ProviderFacilityStart: 01-23-2025 End: 93-24-5582Ivejdpiwg department patient visitBrian De La CruzFacility:[facility] Start: 12-17-2024 End: 89-71-6784punpkifxcdQocz T AMESFacility:[facility] Start: 12-07-2024 End: 73-30-5856Einbzbupx department patient visitBRJESSICA Cui [facility] HospitalStart: 11-26-2024 End: 85-67-6344Bpaaxzaag department patient visitBRJESSICA DASHProMedica Bay Park Hospital HospitalStart: 11-07-2024 End: 99-74-5585lxidtuyxwxPxlixfznq Breault [facility] Work Phone: [facility] Work Phone: Start: 11-07-2024 End: 50-29-1554Mkodvjs encounter procedureNeeru Sadler PERFORATING MACHINE OPERATOR-[facility] Work Phone: Start: 11-06-2024 End: 66-53-8435anarykhxmhQOYN M OWAIJoint [facility] HospitalStart: 10-23-2024 End: 74-29-6055Lovsxs-up encounterNu Dash PERFORATING MACHINE OPERATOR-CONVERTING SUPERVISOR Work Phone: [facility] - Observ[facility] UnitComment on above:Anti cardiolipin AB IgG IgA IgM, Homocysteine total, DRVVT, Additional followed-up results: 2Start: 10-19-2024 End: 45-65-2129Wxnfhkiwy encounterCamraymond MoranBaptist Health [facility]rology, A Department of [facility] HospitalStart: 10-18-2024 End: 71-42-0728ueqogskophAOWIQUQEL A JUMAAProMedMercy Health St. [facility] HospitalStart: 09-28-2024 End: 44-03-5539Sokqmu outpatient visit 15 minutesJose Antoniojessica Cui Hardy PERFORATING MACHINE OPERATOR-CONVERTING SUPERVISOR Work Phone: [facility] Physicians Internal Medicine - Family MedicineComment on above:Irritable bowel syndrome with diarrhea (Primary Dx); Loose stoolsStart: 09-28-2024 End: 97-16-6864czesulefejMIZKRWHoldenville General Hospital – [place] PPGStart: 09-17-2024 End: 67-42-9172Nouddghlt department patient visitSaint [facility] HospitalStart: 09-12-2024 End: 18-40-5743Owuqdffxk department patient visitSelect [facility] Start: 08-12-2024 End: 81-21-1300Lettwqybc department patient visitSelect Medical [facility] Start: 08-08-2024 End: 72-51-0571Tgugpm outpatient visit 25 minutesMelissa Trujillo PERFORATING MACHINE OPERATOR-CONVERTING SUPERVISOR Work Phone: [facility] Comment on above:Stage 3a chronic kidney disease (CMS-HCC) (Primary Dx)Start: 08-06-2024 End: 87-29-5126kqaablllrjQKAQ A FAYADProMedica [facility] HospitalStart: 08-02-2024 End: 27-12-9317Loanez outpatient visit 15 minutesNu Dash PERFORATING MACHINE OPERATOR-CONVERTING SUPERVISOR Work Phone: [facility] Internal Medicine - Family MedicineComment on above:Acute rhinitis (Primary Dx); Hidradenitis suppurativa; Essential hypertension; Class 3 severe obesity due to excess calories with serious comorbidity and body mass index (BMI) of40.0 to 44.9 in adultStart: 08-02-2024 End: 30-28-9610wufkqeiaztFGSNKKLa Palma Inter[facility]ulatory PPGStart: 08-02-2024 End: 26-03-5490Ngcido [facility] PA Work Phone: noms SWS DERMStart: 08-02-2024 End: 17-47-2672Pghenu [facility] PA Work Phone: noms SWS DERMStart: 08-02-2024 End: 77-91-9506Sisojx outpatient new 45 minutesBl[facility] PA Work Phone: noms SWS DERMComment on above:Acne vulgaris (Primary Dx)Start: 08-02-2024 End: 84-02-6801ntqoznuktvYZETR NORTHEIMNot AvailableStart: 07-30-2024 End: 62-61-8438Ckdjotrto encounterCharlette Foss CMAPHN [facility] ToledoStart: 05-22-2024 End: 07-53-2999Djgadj follow up visit related to original Bridgett Hoff DO Work Phone: [facility] Obstetrics/GynecologyComment on above:Postoperative examination (Primary Dx); Erythema of woundStart: 05-22-2024 End: 61-29-5662khdjghxcldLCJHZ L [facility] PPGStart: 05-10-2024 End: 96-52-5606Nfvohozgg encounterTraci Hoff DO Work Phone: [facility]/GynecologyStart: 05-09-2024 End: 10-99-2776Uwbrwdsnjo and management of inpatientSheltering Arms Hospitaltart: 05-09-2024 End: 36-29-3735Jqixtjwtpx and management of inpatientTRACI Cui [facility] Hospitaltart: 04-26-2024 End: 59-52-6833Mzxepa outpatient new 30 minutesNu Dash PERFORATING MACHINE OPERATOR-CONVERTING SUPERVISOR Work Phone: [facility] Internal Medicine - Family MedicineComment on above:Encounter for medical examination to establish care (Primary Dx); Influenza A; Stage 3b chronic kidney disease ([facility]-HCC); 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Start: 04-26-2024 End: 59-53-1612Glrzhdq encounter statusuN Dash PERFORATING MACHINE OPERATORFantasyHub Work Phone: [facility] Work Phone: Start: 04-26-2024 End: 39-64-7216zsianpemroFZPAGMLa [facility]ma [facility] Ambulatory PPGStart: 04-26-2024 End: 72-44-8550Dxshzh outpatient visit 15 chinoTraci Hoff DO Work Phone: [facility] Obstetrics/GynecologyComment on above:Visit for pre-operative examination (Primary Dx); Consultation for female sterilizationStart: 04-26-2024 End: 41-85-7282Putksykrvlgvt examination Susie Hoff DO Work Phone: [facility] Work Phone: Start: 04-26-2024 End: 12-73-5973ehutuxjqsfCNYYQConey Island Hospital Ambulatory PPGStart: 04-23-2024 End: 11-49-9739Jqhapmkig department patient visitOsmar Duran [facility] Start: 04-21-2024 End: 42-10-9531Jtadfukvd department patient visitNO PCP NO PCPMercy Health Tiffin Hospitaltart: 04-18-2024 End: 77-30-2287Ucsxsvo encounter procedurePmh Pre-Admission Testing 2PUC [facility] - Pre AdmitComment on above:Preop examination (Primary Dx); Hypertension, unspecified type; Stage 3b chronic kidney disease ([facility]-HCC); BMI 40.0-44.9, adult ([facility])Start: 04-18-2024 End: 18-92-5018Jqpvptoogqhaj examination done[address] Streettart: 04-18-2024 End: 88-61-3126fumnaxcxdrHOXNG M SOMMERSMercy Health Tiffin Hospitaltart: 33-32-8087Nctnkccfk for other preprocedural examinationALLEN Main Campus Medical Centertart: 04-04-2024 End: 41-88-3070Jexhclslt encounterTraci Hoff DO Work Phone: [facility] Obstetrics/GynecologyStart: 03-30-2024 End: 18-26-5826Pbdwiy outpatient visit 40 Ruddy Thakur MD Work Phone: [facility] Comment on above:Stage 3a chronic kidney disease ([facility]-HCC) (Primary Dx); Essential hypertension; Class 3 severe obesity with serious comorbidity and body mass index (BMI) of 40.0 to 44.9 in adult,unspecified obesity type ([facility]); Hypovitaminosis D; Hypomagnesemia; 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; Non-nephrotic range proteinuriaStart: 03-27-2024 End: 46-69-7813Lxtmrv outpatient visit 15 minutesTraci Hoff DO Work Phone: [facility] Obstetrics/GynecologyComment on above:Encounter for consultation for female sterilization (Primary Dx)Start: 03-27-2024 End: 99-76-4758Jjmusu Latosha Powers CMAPHN [facility] Hospitalmment on above:Stage 3b chronic kidney disease ([facility]-HCC) (Primary Dx)Start: 09-01-2023 End: 82-80-4283prtkhewtmiJvibcaghfSelect Medical [facility]ty [facility] Work Phone: Start: 09-01-2023 End: 12-32-6035Elnbmeu encounter procedureEcu Health [facility] [place] Work Phone: Start: 05-25-2023 End: 90-62-9235svgvqhjbcwHMGHHOBBA BREAULTFacility:FTMCStart: 05-01-2023 End: 00-69-4127Bglrpbsoj department patient visitBrian SadlerNoy De La Cruz [facility] Start: 02-10-2023 End: 63-74-9759Tqfisditt department patient visitAndi Workman [facility] Start: 02-09-2023 End: 51-27-1359Vwadgqq encounter Sarai THOMASONSUZANNE HOFF [facility] Start: 11-12-2022 End: 72-09-7392Fgzhfbgcn department patient visitOsmar Diggs Dobarbaraabiola [facility] Start: 05-09-2022 End: 07-09-6104rpidasrgysUV CHARLES IRVINGFacility:M2Lfqyd: 04-03-2022 End: 96-33-8278Jmbwwixhl department patient visitOsmar Duran [facility] Start: 03-08-2022 End: 23-53-8336Tcsayjmzn department patient visitOsmar Duran [facility] Start: 09-24-2021 End: 05-55-1499hmotxywqqtLycmlrexx Bre[place] Other [employer] Other Start: 17-44-7949Tqtmic outpatient visit 15 minutes Divine [facility] ClydeStart: 09-10-2021 End: 68-75-2693Gvu Drop Max Orellana [facility] Start: 09-08-2021 End: 47-41-5267ejsajewpnfANRHI CALLISONFacility:W4Laltq: 01-25-2019 End: 44-77-6664Unosahxyg department patient visitSR JORDAN Ayala [facility] HospitalStart: 01-25-2019 End: 18-89-9203Ewozftghn department patient visitVeselin Jaye Work Phone: [phone] [place] [address] EDComment on above:Urticaria (Primary Dx)Start: 01-05-2019 End: 47-55-5135Tvdjpyost department patient visitSR JORDAN [facility] HospitalStart: 01-04-2019 End: 73-61-2187Qygcmyqho department patient visitVeselin Jaye Work Phone: [phone] [place] [address] EDComment on above:Menstrual cramp (Primary Dx)Start: 01-03-2017 End: 83-26-3103QbnspjftyxMBWBKHMSt. Elizabeth Hospitaltart: 12-14-2016 End: 18-96-1948RggcmadbrvHBFFIDYOhioHealth [facility] Procedures DateProcedureProcedure DetailPerforming ClinicianStart: 58-99-0439Cegap depression screening assessmentNu [facility] Work Phone: Start: 30-03-6433Vblvs depression screening assessment [facility] Work Phone: Start: 34-90-7788Gocih depression screening assessment [facility] Work Phone: Start: 39-06-7350Nztbp depression screening assessment Glenda Powers CMAStart: 34-92-5900Xafqoksrmgz observation [Identifier] in Cervix by Cyto stainGlenda Powers CMAStart: 07-30-2021 End: 10-16-2022H/O: sectionHistory of delivery, currently Ismary Powers CMAStart: 23-45-7173Awybqhnhxl microscopic onlySR HOUSE Start: 78-23-0339Yomsi test visual color cmprsn methsSR HOUSEStart: 91-71-3497Dpuib dip stick/tablet rgnt auto w/o microscopySR HOUSEStart: 35-92-9465Regrmbcako microscopic onlyVeselin Jaye Work Phone: start: 01-40-1354Seosi test visual color cmprsn methsVeselin Jaye Work Phone: start: 34-39-6212Ftbov dip stick/tablet rgnt auto w/o microscopyVeselin Jaye Work Phone: Plan of Treatment DateCare ActivityDetailAuthorStart: 69-24-0286LDsG,Tdap and Td Vaccines (7 - Td or Tdap)DTaP,Tdap and Td Vaccines (7 - Td or Tdap)[facility] SystemStart: 58-27-5049Dicbl BMI ScreeningAdult BMI ScreeningProMedica Health SystemStart: 42-68-2650Vjnmewe ScreeningTobacco ScreeningHolden Memorial HospitalMedica Health SystemStart: 37-01-5265Sqyhr BMI ScreeningAdult BMI ScreeningProMedica Health SystemStart: 13-34-7166Vxzezju ScreeningTobacco ScreeningProMedica Health SystemStart: 72-11-3600Ooejl BMI ScreeningAdult BMI ScreeningProMedica Health SystemStart: 52-47-8578Xqynwhgwvw ScreeningDepression ScreeningProMedica Health SystemStart: 34-92-3539Eukyaqp ScreeningTobacco ScreeningProMedica Health SystemStart: 06-66-0931Chmig BMI ScreeningAdult BMI ScreeningProMedica Health SystemStart: 12-43-1778Xctnrbpzzq ScreeningDepression ScreeningProMedica Health SystemStart: 76-52-9857Lubrusv ScreeningTobacco ScreeningProMedica Health SystemStart: 48-30-6726Gthzg BMI ScreeningAdult BMI ScreeningProMedica Health SystemStart: 57-57-4499Oxzrgzs ScreeningTobacco ScreeningProMedica Health SystemStart: 33-94-8319Evivu BMI ScreeningAdult BMI ScreeningAvita Health System [facility] SystemStart: 60-48-0455Jkbxday ScreeningTobacco ScreeningAvita Health System [facility] SystemStart: 99-31-4446Nsqzo BMI ScreeningAdult BMI ScreeningAvita Health System [facility] SystemStart: 20-32-4642Pzjshatims ScreeningDepression ScreeningAvita Health System [facility] SystemStart: 06-06-2433Bdpszkx ScreeningTobacco ScreeningProtestant Deaconess Hospitalca [facility] SystemStart: 49-52-2136Obpux BMI ScreeningAdult BMI ScreeningAvita Health System [facility] SystemStart: 68-42-0366Anhwvqs ScreeningTobacco ScreeningAvita Health System [facility] SystemStart: 16-15-1199Chrcn BMI ScreeningAdult BMI ScreeningAvita Health System [facility] SystemStart: 16-31-3378Dhnzsav ScreeningTobacco ScreeningAvita Health System [facility] SystemStart: 79-48-7686Nsnpz BMI ScreeningAdult BMI ScreeningAvita Health System [facility] SystemStart: 58-06-7980Szsvmlm ScreeningTobacco ScreeningAvita Health System [facility] SystemStart: 46-25-8305Clqoluxfr for malignant neoplasm of cervixPap SmearAvita Health System Galion Hospital SystemStart: 01-04-2025 End: 41-78-4390Bqirggq encounter zyieuxvuu24/17/2025 1:30 PM EDT Office Visit [facility] A Department of [address] [place] [phone] Umesh Umanzor MD [address] [place] [address] [address] [place] [address] [facility], A Department of [facility] Start: 81-06-5202Tbgywarge vaccinationInfluenza VaccineThe [facility] Start: 11-06-2024 End: 04-86-0462Hgasekc encounter pmxmhpijv29/19/2025 8:15 AM EDT Appointment [facility] - MRI Imaging [address] [place] [address] [phone] [facility] ImagingStart: 10-01-2024 End: 01-09-8529Qjuroxl encounter mcmylqzvr31/14/2025 2:05 PM EDT Office Visit [facility] [address] [place] [address] Karie Giron PERFORATING MACHINE OPERATOR-CONVERTING SUPERVISOR [address] [place] [address] [facility] DERMStart: 08-27-2024 End: 02-89-2369Jqaomji encounter thzmwsexl48/09/2025 2:00 PM EDT Office Visit [facility] [address] [facility] [address] [place] [phone] Melissa Trujillo, PERFORATING MACHINE OPERATOR-CONVERTING SUPERVISOR [address] [employer], [address] [place] [address] [facility]Start: 08-08-2024 End: 80-93-0546Hmnxdiw encounter nnjluhhjr65/21/2025 8:20 AM EDT Office Visit [facility] [address] [place], [place] [address] [address] Melissa Trujillo, PERFORATING MACHINE OPERATOR-CONVERTING SUPERVISOR [address] [employer] [facility], [address] [place] [address] [facility] Alexa DRStart: 08-02-2024 End: 25-49-6208Svibybi encounter nmeiztatz79/15/2025 1:40 PM EDT Office Visit [facility] [address] [place] [address] Deb Tillman PA [address] [place] [address] ArrivedNOMS SWS DERMComment on above:ArrivedStart: 06-28-2024 End: 25-60-5614Nkjzi metabolic 2000 panel - Serum or PlasmaBasic Metabolic Panel Lab Routine Stage 3a chronic kidney disease ([facility]-H[facility]) Expected: 06/28/2024 (Ap proximate), Expires: 03/30/2025[facility] SystemComment on above:Expected: 06/28/2024 (Approximate), Expires: 03/30/2025Start: 06-28-2024 End: 29-88-2838BTH panel - Blood by Automated countCBC without diff Lab Routine Stage 3a chronic kidney disease ([facility]) Expected: 06/28/2024 (Approximate), Expires: 03/30/2025[facility] SystemComment on above:Expected: 06/28/2024 (Approximate), Expires: 03/30/2025Start: 06-28-2024 End: 04-59-3036Kecvxaivp [Mass/volume] in Serum or PlasmaMagnesium Lab Routine Stage 3a chronic kidney disease ([facility]) Expected: 06/28/2024 (Approximate), Expires: 03/30/2025[facility] SystemComment on above:Expected: 06/28/2024 (Approximate), Expires: 03/30/2025Start: 06-28-2024 End: 59-34-7830Fuisqwnnbic Hormone, intactParathyroid Hormone, intact Lab Routine Stage 3a chronic kidney disease ([facility]-H[facility]) Expected: 06/28/2024 (Approximate), Expires: 03/30/2025[facility] SystemComment on above: Expected: 06/28/2024 (Approximate), Expires: 03/30/2025Start: 06-28-2024 End: 59-88-4147Hxhirxeyh [Mass/volume] in Serum or PlasmaPhosphorus Lab Routine Stage 3a chronic kidney disease ([facility]) Expected: 06/28/2024 (Approximate), Expires: 03/30/2025[facility] SystemComment on above:Expected: 06/28/2024 (Approximate), Expires: 03/30/2025Start: 06-28-2024 End: 34-78-4062Dhnutlx creat ratioProtein creat ratio Lab Routine Stage 3a chronic kidney disease ([facility]) Expected: 06/28/2024 (Approximate), Expires: 03/30/2025ProB[facility] Health SystemComment on above:Expected: 06/28/2024 (Approximate), Expires: 03/30/2025Start: 06-28-2024 End: 43-06-3477XgyltdvjaiDsvgnhjdbg Lab Routine Stage 3a chronic kidney disease ([facility]) Expected: 06/28/2024 (Approximate), Expires: 03/30/2025ProB[facility] Hospital Health SystemComment on above:Expected: 06/28/2024 (Approximate), Expires: 03/30/2025Start: 06-28-2024 End: 22-16-4609Npyknmj D 25 hydroxyVitamin D 25 hydroxy Lab Routine Stage 3a chronic kidney disease ([facility]) Expected: 06/28/2024 (Approximate), Expires: 03/30/2025ProB[facility] Hospital Health SystemComment on above:Expected: 06/28/2024 (Approximate), Expires: 03/30/2025Start: 06-26-2024 End: 99-34-6699Bnpzsto encounter procedurePHN [facility]edoStart: 06-07-2024 End: 90-43-3948Vuyzkjr encounter hhumrcgqw20/20/2025 2:20 PM EDT Office Visit [facility] [address] [place] [address] Nu Dash, PERFORATING MACHINE OPERATOR-CONVERTING SUPERVISOR [address] [place] [address] [facility] - Family MedicineStart: 06-05-2024 End: 82-59-7966Nopilhe encounter sxvrzupkj44/18/2025 3:30 PM EDT Office Visit [facility] [address] [facility] [place] [address] Traci Hoff DO [address] [place], [place] [id number] [facility]/GynecologyStart: 05-22-2024 End: 00-80-0485Ohscasg encounter pjvhqdyau40/04/2025 1:15 PM EST Office Visit [facility] [address] [facility] [place] [facility] [place] [phone] Traci Hoff, [address] [place] [address] [facility]etrics/GynecologyStart: 05-09-2024 End: 38-70-9907Bblkllsob to same day surgery vienzf3905/09/2024 11:45 AM EST - 05/09/2024 1:00 PM EST Surgery [facility] - Surgery [address] [place] [address] Traci Hoff, [address] [place], [place] [id number] LAPAROSCOPIC TUBAL LIGATION [94663 (CPT )][facility] - SurgeryComment on above:LAPAROSCOPIC TUBAL LIGATION [08457 (CPT )]Start: 05-09-2024 End: 23-47-1774Vgvxqyaeowc w/plmt occlusion device oviductsLAPAROSCOPIC TUBAL LIGATION undesired fertility 05/09/2024 11:45 AM ESTFREMUNIVERSITY [facility]ITAL SURGERYStart: 05-09-2024 End: 56-32-6544Tsnabyoqwwt w/rmvl adnexal structuresLAPAROSCOPIC SALPINGECTOMY undesired fertility 05/09/2024 11:45 AM ESTFREMUNIVERSITY HOSPITAL SURGERYStart: 05-09-2024 Subsequent hospital visit by zyaeemgfe59/19/2025 11:45 AM EST Hospital Encounter [facility] - Surgery [address] [place] [address] Traci Hoff DO [address] [place] [address] [facility] - SurgeryStart: 04-26-2024 End: 84-36-1465Vskrlsl encounter qmgrxmpla39/06/2025 1:00 PM EST Office Visit [facility] [address] [place] [address] Nu Dash, PERFORATING MACHINE OPERATOR-CONVERTING SUPERVISOR [address] [place] [address] [facility] - Family MedicineStart: 04-24-2024 End: 69-87-5676Mulmqul encounter ppbzyevol52/04/2025 10:00 AM EST Office Visit [facility] [address] [place] [phone] Traci Hoff DO [address] [facility] [address] [place], [place] [phone] [facility]/GynecologyStart: 04-18-2024 End: 63-08-9282Cxqsxxr encounter bicbqjqhb87/29/2025 12:45 PM EST Procedure visit [facility] Admit [address] [place] [address] [facility] AdmitStart: 04-13-2024 End: 67-46-2004Fmewb metabolic 2000 panel - Serum or PlasmaBasic Metabolic Panel Lab Routine Stage 3a chronic kidney disease ([facility]) Expected: 04/13/2024 (Ap proximate), Expires: 03/30/2025ProAv[facility] SystemComment on above:Expected: 04/13/2024 (Approximate), Expires: 03/30/2025Start: 03-30-2024 End: 87-59-0669Prnpivg encounter ngyabonbb15/10/2025 4:00 PM EST Office Visit [facility] [address] [place] [phone] Zoya Thakur MD [facility] [address] [place], [place] [phone] [facility]Start: 03-30-2024 End: 36-34-0165Tvbtikuj identified in Urine by CultureUrine culture (clean catch) Microbiology Routine Stage 3a chronic kidney disease ([facility]) Expected: 03/30/2024 (Approximate), Expires: 03/30/2025[facility] Work Phone: Comment on above:Expected: 03/30/2024 (Approximate), Expires: 03/30/2025Start: 03-27-2024 End: 50-66-9598Tspvmsk encounter dpdpsnruo81/07/2025 2:30 PM EST Office Visit [facility] [address] [place] [address] Traci Hoff DO [address] [place] [address] [facility]/GynecologyStart: 56-97-2827Gikla BMI ScreeningAdult BMI Screening Critical access hospitaltart: 04-37-7916Yhruuexqgj ScreeningDepression Screening Critical access hospitaltart: 71-10-6698Nffyuvi ScreeningTobacco Screening Critical access hospitaltart: 69-48-7471Nzsrhsuye vaccinationInfluenza Vaccine Critical access hospitaltart: 00-88-5429Knueefllo vaccinationFlu vaccine (#1) [facility]: 54-32-8447Ovnaucyo cancer screenCervical cancer screenParkview Health [facility] Hospital: 75-41-9518UDyY/Tdap/Td vaccine (1 - Tdap) DTaP/Tdap/Td vaccine (1 - Tdap)[facility]: 04-63-7610Agmio BMI Follow Up PlanAdult BMI Follow Up PlanCritical access hospitaltart: 2013 Chlamydia screenChlamydia screenParkview Health [facility] Hospital: 40-57-5363MSU screen HIV screenParkview Health [facility] Hospital: 45-06-4313HOY vaccine (1 - Female 3-dose series)HPV vaccine (1 - Female 3-dose series)[place]: 47-92-0546Mjoudpdtt Vaccine (1 of 2 - 13+ 2-dose series)Varicella Vaccine (1 of 2 - 13+ 2-dose series)[place], [place] End: 96-94-1010Hjjpz metabolic 2000 panel - Serum or PlasmaBasic Metabolic Panel Lab Routine Stage 3b chronic kidney disease (CMS-HCC) 1 Occurrences starting 0 03/27/2024 until 03/27/2025[facility] Work Phone: Comment on above:1 Occurrences starting 03/27/2024 until 03/27/2025 End: 64-25-1377Xlmhd metabolic 2000 panel - Serum or PlasmaBasic Metabolic Panel Lab Routine Stage 3a chronic kidney disease (CMS-HCC) 1 Occurrences starting 0 08/08/2024 until 08/08/2025ProB[facility] Health SystemComment on above:1 Occurrences starting 08/08/2024 until 08/08/2025 End: 13-63-1554KDP panel - Blood by Automated countCBC without diff Lab Routine Stage 3b chronic kidney disease (CMS-HCC) 1 Occurrences starting 03/27/2024 until 03/27/2025[facility] SystemComment on above:1 Occurrences starting 03/27/2024 until 03/27/2025 End: 78-82-4138BBB panel - Blood by Automated countCBC without diff Lab Routine Stage 3a chronic kidney disease (CMS-HCC) 1 Occurrences starting 08/08/2024 until 08/08/2025[facility] SystemComment on above:1 Occurrences starting 08/08/2024 until 08/08/2025 End: 80-94-0567Zlqkmwxty [Mass/volume] in Serum or PlasmaMagnesium Lab Routine Stage 3b chronic kidney disease (CMS-HCC) 1 Occurrences starting 03/27/2024 un til 03/27/2025ProB[facility] SystemComment on above:1 Occurrences starting 03/27/2024 until 03/27/2025 End: 03-65-5379Dubcovquv [Mass/volume] in Serum or PlasmaMagnesium Lab Routine Stage 3a chronic kidney disease (CMS-HCC) 1 Occurrences starting 08/08/2024 un til 08/08/2025[facility] SystemComment on above:1 Occurrences starting 08/08/2024 until 08/08/2025 End: 62-64-2456Izsmwlqxzxjj - Albumin: Creatinine Urine RatioMicroalbumin - Albumin: Creatinine Urine Ratio Lab Routine Stage 3a chronic kidney disease ([facility]) 1 Occurrences starting 08/08/2024 until 08/08/2025[facility] SystemComment on above:1 Occurrences starting 08/08/2024 until 08/08/2025 End: 66-97-9395Znmuvxmitac Hormone, intactParathyroid Hormone, intact Lab Routine Stage 3b chronic kidney disease ([facility]) 1 Occurrences starting 03/27/2024 until 03/27/2025ProB[facility] SystemComment on above:1 Occurrences starting 03/27/2024 until 03/27/2025 End: 51-29-9569Ahogbkbwacj Hormone, intactParathyroid Hormone, intact Lab Routine Stage 3a chronic kidney disease ([facility]) 1 Occurrences starting 08/08/2024 until 08/08/2025[facility] Work Phone: Comment on above:1 Occurrences starting 08/08/2024 until 08/08/2025 End: 56-62-5000Iletxtuht [Mass/volume] in Serum or PlasmaPhosphorus Lab Routine Stage 3b chronic kidney disease ([facility]) 1 Occurrences starting 03/27/2024 u ntil 03/27/2025Pro[facility] SystemComment on above:1 Occurrences starting 03/27/2024 until 03/27/2025 End: 55-74-1315Rejwowvwk [Mass/volume] in Serum or PlasmaPhosphorus Lab Routine Stage 3a chronic kidney disease ([facility]) 1 Occurrences starting 08/08/2024 u ntil 08/08/2025Pro[facility] Health SystemComment on above:1 Occurrences starting 08/08/2024 until 08/08/2025 End: 69-82-7710Jzhlcox creat ratioProtein creat ratio Lab Routine Stage 3b chronic kidney disease ([facility]) 1 Occurrences starting 03/27/2024 until 03/27/2025ProKind[facility] Health SystemComment on above:1 Occurrences starting 03/27/2024 until 03/27/2025 End: 96-58-4335Kgvjcme creat ratioProtein creat ratio Lab Routine Stage 3a chronic kidney disease ([facility]) 1 Occurrences starting 08/08/2024 until 08/08/2025[facility] SystemComment on above:1 Occurrences starting 08/08/2024 until 08/08/2025 End: 16-88-3162IsdkpkkoucLzizpwjgka Lab Routine Stage 3b chronic kidney disease ([facility]) 1 Occurrences starting 03/27/2024 until 03/27/2025Pro[facility] SystemComment on above:1 Occurrences starting 03/27/2024 until 03/27/2025 End: 82-93-4127PwgapfihoeJwditdgffs Lab Routine Stage 3a chronic kidney disease ([facility]) 1 Occurrences starting 08/08/2024 until 08/08/2025[facility] SystemComment on above:1 Occurrences starting 08/08/2024 until 08/08/2025 End: 47-22-4480Jurckgi D 25 hydroxyVitamin D 25 hydroxy Lab Routine Stage 3b chronic kidney disease ([facility]) 1 Occurrences starting 03/27/2024 until 03/27/2025Pro[facility] SystemComment on above:1 Occurrences starting 03/27/2024 until 03/27/2025 End: 39-50-1966Utlxsjm D 25 hydroxyVitamin D 25 hydroxy Lab Routine Stage 3a chronic kidney disease ([facility]) 1 Occurrences starting 08/08/2024 until 08/08/2025[facility] SystemComment on above:1 Occurrences starting 08/08/2024 until 08/08/2025 Immunizations Immunization DateImmunizationNotesCare FjjmpaoqQzdvfuqc71-21-8427divsqju, mumps and rubella virus vaccineIsis [facility]05-12-2022tetanus toxoid, reduced diphtheria toxoid, and acellular pertussis vaccine, adsorbed Glenda Gio [facility] CenterCtmjar55-37-1317fwndfjmptwthr B vaccine, recombinant, OMV, adjuvantedCamille [facility]08-02-2016 meningococcal B vaccine, recombinant, OMV, adjuvantedCamille [facility]08-02-2016meningococcal polysaccharide (groups A, C, Y and W-135) diphtheria toxoid conjugate vaccine (MCV4P)[facility] 45-39-4848ypshf papilloma virus vaccine, quadrivalentP[facility] Center01-21-2014human papilloma virus vaccine, quadrivalentEinstein [facility] Center-[facility]11-19-2013human papilloma virus vaccine, quadrivalent [facility]2012hepatitis A vaccine, pediatric/adolescent dosage, 2 dose scheduleP[facility]08-18-2011hepatitis A vaccine, pediatric/adolescent dosage, 2 dose scheduleP[facility]08-18-2011meningococcal polysaccharide (groups A, C, Y and W-135) diphtheria toxoid conjugate vaccine (MCV4P)[facility]08-18-2011tetanus toxoid, reduced diphtheria toxoid, and acellular pertussis vaccine, adsorbedEinstein Medical Center-[facility]08-18-2011varicella virus vaccineP[facility]01-13-2003diphtheria, tetanus toxoids and acellular pertussis vaccine, unspecified formulationP[facility] Center01-13-2003 measles, mumps and rubella virus vaccineP[facility] 77-29-7416yhczjltgxb vaccine, inactivatedP[facility] 26-44-8395jzhcbfigze, tetanus toxoids and acellular pertussis vaccine, unspecified formulationP[facility] Center10-18-1999 haemophilus influenzae type b vaccine, HbOC conjugatePenn [facility]byterian Medical Center10-18-1999measles, mumps and rubella virus vaccineEinstein Medical Center-[facility]10-18-1999trivalent poliovirus vaccine, live, oralPenn [facility]byterian Medical Center10-18-1999varicella virus vaccineEinstein Medical Center-[place]12-30-1998haemophilus influenzae type b conjugate and Hepatitis B vaccineP[facility] Medical Center12-30-1998TD(adult) unspecified formulationP[facility] Center10-16-1998 diphtheria, tetanus toxoids and acellular pertussis vaccine, unspecified formulationP[facility] Center10-16-1998haemophilus influenzae type b vaccine, PRP-OMP conjugateP[facility] 58-76-1093xoigdafcgx vaccine, inactivatedP[facility] 90-18-6676irrdrnmdio, tetanus toxoids and acellular pertussis vaccine, unspecified formulationP[facility]07-31-1998 haemophilus influenzae type b conjugate and Hepatitis B vaccineEinstein Medical Center-[facility]07-31-1998poliovirus vaccine, inactivatedEinstein Medical Center-[place]06-05-1998hepatitis B vaccine, pediatric or pediatric/adolescent dosagePenn Presbyterian Medical CenterNEGATED: Highlighted row has not occurred!11-87-4206avaokos, mumps and rubella virus vaccineIsis [facility] HospitalComment on above:Deferred: - RECONSTITUTED THE MEDICATION AND WHEN SCANNED, DRUG-DISEASE CONTRAINDICATION POPPED UP AND DISCUSSED WITH PHARMACY AND WINDSHIELD TECHNICIAN; DECIDED AGAINST GIVING IT AT THIS TIME AND WILL WAIT UNTIL PATIENT'S KIDNEY FUNCTION IS BETTER TO GET THEN. Payers DatePayer CategoryPayerPolicy [id number] [id number] [id number] 2023Medicaid [id number] [id number] [id number] CAREMARK xxxxxxxx 2014- Present [phone] [address] [address] [place], [place] [address]etrtgqtg ..[id number] 05.06.840.1.216676.3.57[id number] 05.06.840.1.491212.3.579.2.18381-78-8739Tndccab1122489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 This tube will drain urine and prevent blockages. Trying to keep problems from starting. This may mean not using certain medicines or not having tests done that could cause more injury. In some cases, you may also need: Dialysis or continuous renal replacement therapy (CRRT). This treatment uses a machine to do the job of the kidneys. Surgery. This may be done to repair a damaged kidney. It could also be done to remove a blockage inthe urinary tract. Follow these instructions at home: Medicines Take uqyl-qyf-zeubwvf and prescription medicines only as told by your health care provider. Do not take new medicines unless approved by your health care provider. Many medicines can make kidney damage worse. Do not take vitamin or mineral supplements unless approved by your health care provider. Some of these can make kidney damage worse. Lifestyle Make changes to your diet as told by your health care provider. You may need to eat less protein. Get to, and stay at, a healthy weight. If you need help, ask your health care provider. Start or keep up an exercise plan. Exercise at least 30 minutes a day, 5 days a week. Do not use any products that contain nicotine or tobacco. These products include cigarettes, chewing tobacco, and vaping devices, such as e-cigarettes. If you need help quitting, ask your health careprovider. General instructions Keep track of your blood pressure. Tell your health care provider if you notice any changes. Keep your vaccines up to date. Ask your health care provider which vaccines you need. Keep all follow-up visits. Your health care provider will need to monitor your kidneys. Where to find support [place] [employer] Kidney Patients: aakp.org [place] [employer]: akfinc.org Where to find more information National Kidney Foundation: kidney.org Medical Education [place]: ?LifeOptions: [email or web address] [facility]: [email or web address] Contact a health care provider if: Your symptoms get worse. You have new symptoms, such as: ?Headaches. ?Skin that is darker or business partner than normal. ?Easy bruising. ?Feeling itchy. ?Hiccups. ?Lack of menstrual periods. You have a fever. Get help right away if: You have signs of severe kidney disease, such as: ?Chest pain. ?Shortness of breath. ?Seizures. You have pain or bleeding when you pass urine. You make little or no urine. These symptoms may be an emergency. Get help right away. Call 911. Do not wait to see if the symptoms will go away. Do not drive yourself to the hospital. This information is not intended to replace advice given to you by your health care provider. Make sure you discuss any questions you have with your health care provider. Document Revised: 09/24/2022 Document Reviewed: 09/24/2022 [email or web address] Patient Education 2023 [employer]. 09/12/2024 18:20:24 Urinary Tract Infection, Adult Urinary Tract Infection, Adult A urinary tract infection (UTI) is an infection of any part of the urinary tract. The urinary tractincludes the kidneys, ureters, bladder, and urethra. These organs make, store, and get rid of urinein the body. An upper UTI affects the ureters and kidneys. A lower UTI affects the bladder and urethra. What are the causes? Most urinary tract infections are caused by bacteria in your genital area around your urethra, where urine leaves your body. These bacteria grow and cause inflammation of your urinary tract. What increases the risk? You are more likely to develop this condition if: You have a urinary catheter that stays in place. You are not able to control when you urinate or have a bowel movement (incontinence). You are female and you: ?Use a spermicide or diaphragm for control. ?Have low estrogen levels. ?Are . You have certain genes that increase your risk. You are sexually active. You take antibiotic medicines. You have a condition that causes your flow of urine to slow down, such as: ?An enlarged prostate, if you are male. ?Blockage in your urethra. ?A kidney stone. ?A nerve condition that affects your bladder control (neurogenic bladder). ?Not getting enough to drink, or not urinating often. You have certain medical conditions, such as: ?Diabetes. ?A weak disease-fighting system (immunesystem). ?Sickle cell disease. ?Gout. ?Spinal cord injury. What are the signs or symptoms? Symptoms of this condition include: Needing to urinate right away (urgency). Frequent urination. This may include small amounts of urine each time you urinate. Pain or burning with urination. Blood in the urine. Urine that smells bad or unusual. Trouble urinating. Cloudy urine. Vaginal discharge, if you are female. Pain in the abdomen or the lower back. You may also have: Vomiting or a decreased appetite. Confusion. Irritability or tiredness. A fever or chills. Diarrhea. The first symptom in older adults may be confusion. In some cases, they may not have any symptoms until the infection has worsened. How is this diagnosed? This condition is diagnosed based on your medical history and a physical exam. You may also have other tests, including: Urine tests. Blood tests. Tests for STIs (sexually transmitted infections). If you have had more than one UTI, a cystoscopy or imaging studies may be done to determine the cause of the infections. How is this treated? Treatment for this condition includes: Antibiotic medicine. Qwrm-fmb-uhcveic medicines to treat discomfort. Drinking enough water to stay hydrated. If you have frequent infections or have other conditions such as a kidney stone, you may need to see a health care provider who specializes in the urinary tract (urologist). In rare cases, urinary tract infections can cause sepsis. Sepsis is a life- threatening condition that occurs when the body responds to an infection. Sepsis is treated in the hospital with IV antibiotics, fluids, and other medicines. Follow these instructions at home: Medicines Take bqgq-fqu-bhnwrgd and prescription medicines only as told by your health care provider. If you were prescribed an antibiotic medicine, take it as told by your health care provider. Do notstop using the antibiotic even if you start to feel better. General instructions Make sure you: ?Empty your bladder often and completely. Do not hold urine for long periods of time. ?Empty your bladder after sex. ?Wipe from front to back after urinating or having a bowel movement if you are female. Use each tissue only one time when you wipe. Drink enough fluid to keep your urine pale yellow. Keep all follow-up visits. This is important. Contact a health care provider if: Your symptoms do not get better after 1 2 days. Your symptoms go away and then return. Get help right away if: You have severe pain in your back or your lower abdomen. You have a fever or chills. You have nausea or vomiting. Summary A urinary tract infection (UTI) is an infection of any part of the urinary tract, which includes the kidneys, ureters, bladder, and urethra. Most urinary tract infections are caused by bacteria in your genital area. Treatment for this condition often includes antibiotic medicines. If you were prescribed an antibiotic medicine, take it as told by your health care provider. Do notstop using the antibiotic even if you start to feel better. Keep all follow-up visits. This is important. This information is not intended to replace advice given to you by your health care provider. Make sure you discuss any questions you have with your health care provider. Document Revised: 10/12/2020 Document Reviewed: 10/17/2020 [email or web address] Patient Education 2023 [employer]. 09/12/2024 18:20:24 Diarrhea, Adult Diarrhea, Adult Diarrhea is frequent loose and sometimes watery bowel movements. Diarrhea can make you feel weak and cause you to become dehydrated. Dehydration is a condition in which there is not enough water or other fluids in the body. Dehydration can make you tired and thirsty, cause you to have a dry mouth, and decrease how often you urinate. Diarrhea typically lasts 2 3 days. However, it can last longer if it is a sign of something more serious. It is important to treat your diarrhea as told by your health care provider. Follow these instructions at home: Eating and drinking Follow these recommendations as told by your health care provider: Take an oral rehydration solution (ORS). This is an iyar-dod-ahpbfhz medicine that helps return your body to its normal balance of nutrients and water. It is found at pharmacies and retail stores. Drink enough fluid to keep your urine pale yellow. ?Drink fluids such as water, diluted fruit juice, and low-calorie sports drinks. You can drink milkalso, if desired. Sucking on ice chips is another way to get fluids. ?Avoid drinking fluids that contain a lot of sugar or caffeine, such as soda, energy drinks, and regular sports drinks. ?Avoid alcohol. Eat bland, jxmt-lq-zaqqiq foods in small amounts as you are able. These foods include bananas, applesauce, rice, lean meats, toast, and crackers. Avoid spicy or fatty foods. Medicines Take nevq-czz-yfhyohg and prescription medicines only as told by your health care provider. If you were prescribed antibiotics, take them as told by your health care provider. Do not stop using the antibiotic even if you start to feel better. General instructions Wash your hands often using soap and water for at least 20 seconds. If soap and water are not available, use hand asset protection assistant. Others in the household should wash their hands as well. Hands should be washed: ?After using the toilet or changing a diaper. ?Before preparing, cooking, or serving food. ?While caring for a sick person or while visiting someone in a hospital. Rest at home while you recover. Take a warm bath to relieve any burning or pain from frequent diarrhea episodes. Watch your condition for any changes. Contact a health care provider if: You have a fever. Your diarrhea gets worse. You have new symptoms. You vomit every time you eat or drink. You feel light-headed, dizzy, or have a headache. You have muscle cramps. You have signs of dehydration, such as: ?Dark urine, very little urine, or no urine. ?Cracked lips. ?Dry mouth. ?Sunken eyes. ?Sleepiness. ?Weakness. You have bloody or black stools or stools that look like tar. You have severe pain, cramping, or bloating in your abdomen. Your skin feels cold and clammy. You feel confused. Get help right away if: You have chest pain or your heart is beating very quickly. You have trouble breathing or you are breathing very quickly. You feel extremely weak or you faint. These symptoms may be an emergency. Get help right away. Call 911. Do not wait to see if the symptoms will go away. Do not drive yourself to the hospital. This information is not intended to replace advice given to you by your health care provider. Make sure you discuss any questions you have with your health care provider. Document Revised: 08/24/2022 Document Reviewed: 08/24/2022 [email or web address] Patient Education 2023 [employer]. 09/12/2024 18:20:24 Nausea and Vomiting, Adult Nausea and Vomiting, Adult Nausea is the feeling that you have an upset stomach or that you are about to vomit. As nausea getsworse, it can lead to vomiting. Vomiting is when stomach contents forcefully come out of your mouthas a result of nausea. Vomiting can make you feel weak and cause you to become dehydrated. Dehydration can make you feel tired and thirsty, cause you to have a dry mouth, and decrease how often you urinate. Older adults and people with other diseases or a weak disease-fighting system (immune system) are at higher risk for dehydration. It is important to treat your nausea and vomiting as told by your health care provider. Follow these instructions at home: Watch your symptoms for any changes. Tell your health care provider about them. Eating and drinking Take an oral rehydration solution (ORS). This is a drink that is sold at pharmacies and retail stores. Drink clear fluids slowly and in small amounts as you are able. Clear fluids include water, ice chips, low-calorie sports drinks, and fruit juice that has water added (diluted fruit juice). Eat bland, zpia-at-jrvpxy foods in small amounts as you are able. These foods include bananas, applesauce, rice, lean meats, toast, and crackers. Avoid fluids that contain a lot of sugar or caffeine, such as energy drinks, sports drinks, and soda. Avoid alcohol. Avoid spicy or fatty foods. General instructions Take rxdu-htn-iswajoi and prescription medicines only as told by your health care provider. Drink enough fluid to keep your urine pale yellow. Wash your hands often using soap and water for at least 20 seconds. If soap and water are not available, use hand asset protection assistant. Make sure that everyone in your household washes their hands well and often. Rest at home while you recover. Watch your condition for any changes. Take slow and deep breaths when you feel nauseous. Keep all follow-up visits. This is important. Contact a health care provider if: Your symptoms get worse. You have new symptoms. You have a fever. You cannot drink fluids without vomiting. Your nausea does not go away after 2 days. You feel light-headed or dizzy. You have a headache. You have muscle cramps. You have a rash. You have pain while urinating. Get help right away if: You have pain in your chest, neck, arm, or jaw. You feel extremely weak or you faint. You have persistent vomiting. You have vomit that is bright red or looks like black coffee grounds. You have bloody or black stools (feces) or stools that look like tar. You have a severe headache, a stiff neck, or both. You have severe pain, cramping, or bloating in your abdomen. You have difficulty breathing, or you are breathing very quickly. Your heart is beating very quickly. Your skin feels cold and clammy. You feel confused. You have signs of dehydration, such as: ?Dark urine, very little urine, or no urine. ?Cracked lips. ?Dry mouth. ?Sunken eyes. ?Sleepiness. ?Weakness. These symptoms may be an emergency. Get help right away. Call 911. Do not wait to see if the symptoms will go away. Do not drive yourself to the hospital. Summary Nausea is the feeling that you have an upset stomach or that you are about to vomit. As nausea getsworse, it can lead to vomiting. Vomiting can make you feel weak and cause you to become dehydrated. Follow instructions from your health care provider about eating and drinking to prevent dehydration. Take uhdk-oje-vhgdtrb and prescription medicines only as told by your health care provider. Contact your health care provider if your symptoms get worse, or you have new symptoms. Keep all follow-up visits. This is important. This information is not intended to replace advice given to you by your health care provider. Make sure you discuss any questions you have with your health care provider. Document Revised: 09/11/2021 Document Reviewed: 09/11/2021 [email or web address] Patient Education 2023 [employer]rev. 09/12/2024 18:20:24 Abdominal Pain, Adult Abdominal Pain, Adult Pain in the abdomen (abdominal pain) can be caused by many things. In most cases, it gets better with no treatment or by being treated at home. But in some cases, it can be serious. Your health care provider will ask questions about your medical history and do a physical exam to try to figure out what is causing your pain. Follow these instructions at home: Medicines Take jjhp-kgr-catinvw and prescription medicines only as told by your provider. Do not take medicines that help you poop (laxatives) unless told by your provider. General instructions Watch your condition for any changes. Drink enough fluid to keep your pee (urine) pale yellow. Contact a health care provider if: Your pain changes, gets worse, or lasts longer than expected. You have severe cramping or bloating in your abdomen, or you vomit. Your pain gets worse with meals, after eating, or with certain foods. You are constipated or have diarrhea for more than 2 3 days. You are not hungry, or you lose weight without trying. You have signs of dehydration. These may include: ?Dark pee, very little pee, or no pee. ?Cracked lips or dry mouth. ?Sleepiness or weakness. You have pain when you pee (urinate) or poop. Your abdominal pain wakes you up at night. You have blood in your pee. You have a fever. Get help right away if: You cannot stop vomiting. Your pain is only in one part of the abdomen. Pain on the right side could be caused by appendicitis. You have bloody or black poop (stool), or poop that looks like tar. You have trouble breathing. You have chest pain. These symptoms may be an emergency. Get help right away. Call 911. Do not wait to see if the symptoms will go away. Do not drive yourself to the hospital. This information is not intended to replace advice given to you by your health care provider. Make sure you discuss any questions you have with your health care provider. Document Revised: 12/22/2022 Document Reviewed: 12/22/2022 [email or web address] Patient Education 2023 [employer]rev. Follow Up Care 09/12/2024 15:16:14 With:Lacey Felix Address: [address], [address], [address] [address] Business (1) When:09/15/2024 18:14:06 Comments:Make sure to follow-up with Dr. Felix for repeat of your blood work next week as your kidney function was slightly down. Return to the emergency room if your vomiting recurs, fever, abdominal pain gets worse or any new symptoms. [facility] 06-25-2025 NoteED Patient Education Note Gastroenterology Nausea and Vomiting, Adult Nausea is the feeling that you have an upset stomach or that you are about to vomit. As nausea getsworse, it can lead to vomiting. Vomiting is when stomach contents forcefully come out of your mouthas a result of nausea. Vomiting can make you feel weak and cause you to become dehydrated. Dehydration can make you feel tired and thirsty, cause you to have a dry mouth, and decrease how often you urinate. Older adults and people with other diseases or a weak disease-fighting system (immune system) are at higher risk for dehydration. It is important to treat your nausea and vomiting as told by your health care provider. Follow these instructions at home: Watch your symptoms for any changes. Tell your health care provider about them. Eating and drinking ??? Take an oral rehydration solution (ORS). This is a drink that is sold at pharmacies and retail stores. ??? Drink clear fluids slowly and in small amounts as you are able. Clear fluids include water, icechips, low-calorie sports drinks, and fruit juice that has water added (diluted fruit juice). ??? Eat bland, dqla-om-cujivz foods in small amounts as you are able. These foods include bananas, applesauce, rice, lean meats, toast, and crackers. ??? Avoid fluids that contain a lot of sugar or caffeine, such as energy drinks, sports drinks, andsoda. ??? Avoid alcohol. ??? Avoid spicy or fatty foods. General instructions ??? Take ayyf-ulj-olhkhgq and prescription medicines only as told by your health care provider. ??? Drink enough fluid to keep your urine pale yellow. ??? Wash your hands often using soap and water for at least 20 seconds. If soap and water are not available, use hand asset protection assistant. ??? Make sure that everyone in your household washes their hands well and often. ??? Rest at home while you recover. ??? Watch your condition for any changes. ??? Take slow and deep breaths when you feel nauseous. ??? Keep all follow-up visits. This is important. Contact a health care provider if: ??? Your symptoms get worse. ??? You have new symptoms. ??? You have a fever. ??? You cannot drink fluids without vomiting. ??? Your nausea does not go away after 2 days. ??? You feel light-headed or dizzy. ??? You have a headache. ??? You have muscle cramps. ??? You have a rash. ??? You have pain while urinating. Get help right away if: ??? You have pain in your chest, neck, arm, or jaw. ??? You feel extremely weak or you faint. ??? You have persistent vomiting. ??? You have vomit that is bright red or looks like black coffee grounds. ??? You have bloody or black stools (feces) or stools that look like tar. ??? You have a severe headache, a stiff neck, or both. ??? You have severe pain, cramping, or bloating in your abdomen. ??? You have difficulty breathing, or you are breathing very quickly. ??? Your heart is beating very quickly. ??? Your skin feels cold and clammy. ??? You feel confused. ??? You have signs of dehydration, such as: ? Dark urine, very little urine, or no urine. ? Cracked lips. ? Dry mouth. ? Sunken eyes. ? Sleepiness. ? Weakness. These symptoms may be an emergency. Get help right away. Call 911. ??? Do not wait to see if the symptoms will go away. ??? Do not drive yourself to the hospital. Summary ??? Nausea is the feeling that you have an upset stomach or that you are about to vomit. As nausea gets worse, it can lead to vomiting. Vomiting can make you feel weak and cause you to become dehydrated. ??? Follow instructions from your health care provider about eating and drinking to prevent dehydration. ??? Take yriy-frm-hgdzqgg and prescription medicines only as told by your health care provider. ??? Contact your health care provider if your symptoms get worse, or you have new symptoms. ??? Keep all follow-up visits. This is important. This information is not intended to replace advice given to you by your health care provider. Make sure you discuss any questions you have with your health care provider. Document Revised: 09/11/2021 Document Reviewed: 09/11/2021 [email or web address] Patient Education ? 2023 [email or web address] Abdominal Pain, Adult Pain in the abdomen (abdominal pain) can be caused by many things. In most cases, it gets better with no treatment or by being treated at home. But in some cases, it can be serious. Your health care provider will ask questions about your medical history and do a physical exam to try to figure out what is causing your pain. Follow these instructions at home: Medicines ??? Take sgss-cqa-kexwrjk and prescription medicines only as told by your provider. ??? Do not take medicines that help you poop (laxatives) unless told by your provider. General instructions ??? Watch your condition for any changes. ??? Drink enou (more content not included)...[facility] 09-12-2024 Evaluation + Plan noteExtracted from:Title:ED NoteAuthor:Lala Dumont, Danyell HDate:09/12/24 1. Vomiting and diarrhea (R1 1.10: Vomiting, unspecified) 2. Abdominal pain (R10.9: Unspecified abdominal pain) 3. Urinary tract infection (N39.0: Urinary tract infection, site not specified) Diarrhea, unspecified (R19.7: Diarrhea, unspecified) Orders: ceftriaxone + Sodium Chloride 0.9% intravenous solution 50 mL, 1,000 mg = 1 EA, Injection, IV Piggyback, Once, Stop date 09/12/24 17:21:00 EDT, STAT, Start date 09/12/24 17:21:00 EDT, 100 mL/hr, Infuse over 30 minute(s) cephalexin, 500 mg = 1 cap(s), Oral, q6hr, X 7 day(s), # 28 cap(s), Refills(s) 0, Pharmacy: [facility]/pharmacy #[id number], 126, cm, 09/12/24 15:25:00 EDT, Height/Length Dosing, 109.6, kg, 09/12/24 15:25:00 EDT,Weight Dosing dicyclomine, 20 mg = 2 mL, Injection, IntraMuscular, Once, Stop date 09/12/24 15:27:00 EDT, STAT, Start date 09/12/24 15:27:00 EDT, 09/12/24 15:27:00 EDT famotidine, 20 mg = 2 mL, Soln-IV, IV Push, Once, Stop date 09/12/24 15:27:00 EDT, STAT, Start date09/12/24 15:27:00 EDT, 09/12/24 15:27:00 EDT ondansetron, 4 mg = 2 mL, Injection, IV Push, Once, Stop date 09/12/24 15:27:00 EDT, STAT, Start date 09/12/24 15::00 EDT, 09/12/24 15:: EDT ondansetron, 4 mg = 1 tab(s), Oral, q6hr, PRN Nausea/Vomiting, # 20 tab(s), Refills(s) 0, Pharmacy:[facility]/pharmacy #[id number], 126, cm, 09/12/24 15: EDT, Height/Length Dosing, 109.6, kg, 09/12/24 15: EDT, Weight Dosing Sodium Chloride 0.9% intravenous solution, 2,000 mL, Soln-IV, IV, Once, Stop date 09/12/24 15::00EDT, STAT, Start date 09/12/24 15:: EDT, Infuse over 61, minute(s) Basic Metabolic Panel Beta hCG Qual CBC w/ Auto Diff eGFR Hepatic Function Panel Lipase Level PT & PTT UA with Cult Rflx Urine Culture Diagnostic Tests Pending * Urine Culture 09/12/24 [facility] 05-25-2025 Hospital Discharge instructions Patient Education 08/12/2024 17:44:54 Shoulder Sprain Shoulder Sprain A shoulder sprain is a partial or complete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 is not normally recommended in the setting of renal disease. Notify office after appointment with treating plant supervisor if they ok the use of spironolactone. Otherwise, continue topicals. Start Klaron lotion apply topically to face every day in AM and tretinoin 0.025% cream, apply a peasize amount to face every other day in the PM. Counseled on spf use. Recommend spf 30 or greater daily on the face. Notify office if any worsening despite treatment. Follow up in 2 months. sulfacetamide suspension (Klaron) 10 % lotion topical - Head - Anterior (Face) Apply thin layer to face once daily, 30 day supply. tretinoin (Retin-A) 0.025 % cream - Head - Anterior (Face) Apply topically at bedtime Apply thin layer to face at bedtime Next Visit: 2 months documented in this encounterHeartland [facility] Health [id number] Miscellaneous Notes* Telephone Encounter - Charlette Foss CMA - 07/30/2024 3:50 PM EDT Patient left a message in the call center. Hey, this is Tom Gann. 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 Thank you, if you could giveme a call. Thank you, bye. [employer] followed up with the patient. Patient states that this needs to be done with in 45 days and Faxed to [phone] Attn: Raghavendra Allen NP ([employer]) documented in this encounterHolden Memorial HospitalOlive Media05-12-2025 Telephone encounter Note* Telephone Encounter - Charlette Foss CMA - 07/30/2024 3:50 PM EDT Patient left a message in the call center. Hey, this is Tom Gann. 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 Thank you, if you could giveme a call. Thank you, bye. [employer] followed up with the patient. Patient states that this needs to be done with in 45 days and Faxed to [phone] Attn: Raghavendra Allen NP ([facility]) [facility] [id number] History of Present illness Narrative* Traci Hoff DO - 05/22/2024 1:15 PM EST Subjective Patient ID: Tom Kovacs is a 28 y.o. femaleWho presents today for postoperative follow up. Patient had a laparoscopic bilateral salpingectomy. She is eating, tolerating p.o. does, voiding,passing stool and flatus spontaneously. She missed no longer taking pain medication. She does feel that her incision in the umbilicus has an odor and her right incision has some erythema surrounding it. It is not open or draining. She is afebrile. Chief Complaint: Postop exam Menstrual History: OB History 2 Para 2 Term 2 0 AB 0 Living 2 SAB 0 IAB 0 Ectopic 0 Multiple 0 Live Births 2 Patient's last menstrual period was 04/21/2024 (exact date). The following portions of the patient's history were reviewed and updated as appropriate: allergies, current medications, past family history, past medical history, past social history, past surgicalhistory, problem list, and medication reconciliation was completed including current medication andpost discharge medication. Review of Systems:Constitutional: negative Respiratory: negative Cardiovascular: negative Gastrointestinal: negative Genitourinary:negative Integument/breast: incision in the umbilicus some odor and drainage per patient slight erythema butno drainage and no fever from lower rate incisions Objective BP 142/84 Ht 160 cm (5' 3 ) Wt 108.7 kg (239 lb 9.6 oz) LMP 04/21/2024 (Exact Date) BMI 42.44 kg/m General: alert, appears stated age, and cooperative Heart: regular rate and rhythm, S1, S2 normal, no murmur, click, rub or gallop Lungs: clear to auscultation bilaterally Abdomen: soft, non-tender, without masses or organomegaly Incision: Incisions all appear clean and dry overall well healing, there is slight erythema surrounding the right incision Assessment 1. Postoperative examination 2. Erythema of wound Plan 1. Patient is scheduled to returned to work. She is somewhat concerned with incisions as her clothing does rub them. We did provide a prescription for Keflex and will have patient back in 2 weeks to reassess the wounds. If patient needs More time off of work to allow complete healing of her wounds we can provide her with a note. documented in this encounterThe [facility]02-[facility]25 Miscellaneous Notes* Telephone Encounter - Samantha Florez - 05/10/2024 9:05 AM EST Patient had laparoscopic bilateral tubal occlusion yesterday (05/09/24). Patient states she is in more pain than when she had her and it hurts to urinate. Patient denies fever or bleeding. Patient states she feels like her belly button is on fire. Patient is worried about having to return to work on Tuesday. Please advise. Thank you * Telephone Encounter - Samantha Florez - 05/10/2024 9:05 AM EST Advised Patient 2 more days of pain medication has been sent. Advised Patient work note for up to 2weeks can be provided. Patient states she will pick note up at post-op visit on 05/22/24. documented in this encounterThe [facility] Hospital02-20-2025 Telephone encounter Note* Telephone Encounter - Samantha Florez - 05/10/2024 9:05 AM EST Patient had laparoscopic bilateral tubal occlusion yesterday (05/09/24). Patient states she is in more pain than when she had her and it hurts to urinate. Patient denies fever or bleeding. Patient states she feels like her belly button is on fire. Patient is worried about having to return to work on Tuesday. Please advise. Thank you [facility]02-20-[facility] Telephone encounter Note* Telephone Encounter - Samantha Florez - 05/10/2024 9:05 AM EST Advised Patient 2 more days of pain medication has been sent. Advised Patient work note for up to 2weeks can be provided. Patient states she will pick note up at post-op visit on 05/22/24. [facility] History of Present illness Narrative* CONSTANZA Martinez - 04/26/2024 1:00 PM EST [address] [facility] [address] Patient: Tom Kovacs Date of : 1995 Encounter Date: 04/26/2024 History of Present Illness: The patient is a 28 y.o. female, an established patient, and is here for Chief Complaint Patient presents with New Patient Est care POS influ-A 04/21- week . HPI Patient is here to establish care from [facility]. She was seeing a nurse practitioner in [place] previous to this. She would like something closer to home. On Tuesday she started to have symptoms of loose stool, weakness, nausea, stuffy nose, cough and fever. She went to the ER in [place] and tested positive for flu A. She was given Tamiflu but when she went to the pharmacy the pharmacist was concerned as she has abnormal kidney function. She did notstart the Tamiflu. 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 She is a . According to pt and quick review of nephrology last note, weight loss and losartan recommended. Her last GFR was 48.She avoid NSAID at her renal specialist recommendations. Pt's worst symptom right now is headache and weakness. Tylenol is not helping significantly. She has been off work through [employer]. 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 Past Medical History: Diagnosis Date Chronic kidney disease STAGE 2 (POSSIBLY SECONDARY TO PYLEONEPHRITIS) Depression Hypertension Obesity Visual impairment Past Surgical History: Procedure Laterality Date N/A 07/28/2021 Performed by Radha Castaneda MD at [facility] OR REPEAT N/A 10/13/2022 Performed by Traci Hoff DO at [facility] OR TONSILLECTOMY URETHRA SURGERY urethra reattachment Current Outpatient Medications Medication Sig Dispense Refill cholecalciferol, vitamin D3, (VITAMIN D3) 5,000 units capsule Take 1 capsule (5,000 Units total) bytxuth in the morning. 90 capsule 3 losartan (COZAAR) 25 mg tablet Take 1 tablet (25 mg total) by mouth in the morning. 30 tablet 11 ondansetron ODT (ZOFRAN ODT) 4 mg disintegrating tablet Dissolve 1 tablet (4 mg total) on tongue every 8 (eight) hours as needed for nausea for up to 10 doses. 10 tablet 0 oseltamivir (TAMIFLU) 75 mg capsule Take 1 capsule (75 mg total) by mouth every 12 (twelve) hours for 5 days. (Patient not taking: Reported on 04/26/2024) 10 capsule 0 No current facility-administered medications for this visit. (All medications reviewed and updated by provider since last office visit or hospitalization) Allergies: Patient has no known allergies. Tobacco History: Social History Tobacco Use Smoking Status Never Smokeless Tobacco Never (If patient a smoker, smoking cessation counseling offered) Social History: Social History Substance and Sexual Activity Alcohol Use Not Currently Review of Systems: Review of Systems Constitutional: Positive for unexpected weight change (15 lb weight loss in last few wks, especially since getting flu A). HENT: Positive for congestion, rhinorrhea and sinus pressure. Negative for sore throat. Respiratory: Positive for cough. Negative for shortness of breath. Cardiovascular: Negative. Gastrointestinal: Positive for diarrhea. Negative for abdominal pain. Musculoskeletal: Positive for myalgias. Neurological: Positive for dizziness, weakness and headaches. Psychiatric/Behavioral: Negative. Physical Exam: BP 106/60 (BP Site: Left Arm, BP Postition: Sitting, BP CUFF SIZE: L (13-17 inches)) Pulse 82 Temp 36.4 C (97.6 F) (Oral) Resp 18 Ht 163.3 cm (5' 4.29 ) Wt 103.6 kg (228 lb 4.8 oz) LMP 04/21/2024 (Exact Date) SpO2 96% BMI 38.83 kg/m Physical Exam Vitals reviewed. Constitutional: General: She is not in acute distress. Appearance: Normal appearance. She is ill-appearing. Comments: Wearing mask HENT: Head: Normocephalic and atraumatic. Right Ear: Tympanic membrane, ear canal and external ear normal. Left Ear: Tympanic membrane, ear canal and external ear normal. Nose: Comments: Mask kept in place Cardiovascular: Rate and Rhythm: Normal rate and regular rhythm. Heart sounds: Normal heart sounds. Pulmonary: Effort: Pulmonary effort is normal. Breath sounds: Normal breath sounds. Abdominal: General: Bowel sounds are normal. Palpations: Abdomen is soft. Tenderness: There is no abdominal tenderness. Musculoskeletal: Right lower leg: No edema. Left lower leg: No edema. Lymphadenopathy: Cervical: No cervical adenopathy. Skin: General: Skin is warm. Capillary Refill: Capillary refill takes less than 2 seconds. Neurological: General: No focal deficit present. Mental Status: She is alert and oriented to person, place, and time. Psychiatric: Mood and Affect: Mood normal. Behavior: Behavior normal. Assessment and Plan: Tom was seen today for new patient. 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 Patient needs renal dose adjustment for Tamiflu though she is outside of treatment window of 5 days. She opts to continue conservative symptomatic treatment at this time. She was encouraged to start Pedialyte and increase this and water intake. Use Zofran as needed for nausea to keep food and fluids down. She should continue to avoid NSAIDs and decongestants. If she becomes significantly short ofbreath or has intractable vomiting and can not keep fluids down, she should go to the ER. Follow-up in office for medically monitored weight loss as her treating plant supervisor gave her the okay to start G LP 1 inhibitors for her glomerular nephritis secondary to obesity. CONSTANZA MARTINEZ APRN-CNP 04/26/24 1417 documented in this encounterThe [facility] Hospital02-06-2025 History of Present illness Narrative* Traci Hoff, - 04/26/2024 11:00 AM EST Preoperative history and physical for laparoscopic bilateral salpingectomy HPI consult for sterilization Subjective Patient ID: Tom Kovacs is a 28 y.o. female who has had 2 pregnancies and 2 live births.She has stage IIIB chronic kidney disease which worsens with each . Patient does not wish to become again as it is a huge risk for her underlying kidney disease and overall health. Chief Complaint: Desires sterilization Menstrual History: OB History 2 Para 2 Term 2 0 AB 0 Living 2 SAB 0 IAB 0 Ectopic 0 Multiple 0 Live Births 2 Patient's last menstrual period was 04/21/2024 (exact date). The following portions of the patient's history were reviewed and updated as appropriate: allergies, current medications, past family history, past medical history, past social history, past surgicalhistory, problem list, and medication reconciliation was completed including current medication andpost discharge medication. Review of Systems Constitutional: negative Respiratory: negative Cardiovascular: negative Gastrointestinal: negative Genitourinary:desires sterilization Integument/breast: negative Musculoskeletal:negative Neurological: negative Behavioral/Psych: negative Allergies: No known drug allergies Past medical history: 1. Chronic hypertension 2. Class 3 severe obesity 3. Renal disease / stage IIIB chronic kidney disease 4. FSGS Past surgical history: 1. Low-transverse section x2 2. Tonsillectomy 3. Urethral surgery Objective BP 124/76 Ht 162.6 cm (5' 4 ) Wt 110.2 kg (243 lb) LMP 04/21/2024 (Exact Date) BMI 41.71 kg/m General: alert, appears stated age, and cooperative Heart: regular rate and rhythm, S1, S2 normal, no murmur, click, rub or gallop Lungs: clear to auscultation bilaterally Abdomen: soft, non-tender, without masses or organomegaly Assessment 1. Visit for pre-operative examination 2. Consultation for female sterilization Plan 1. We reviewed salpingectomy is permanent. The only way to achieve after the removal of the tube is in vitro fertilization. Patient aware. We reviewed risk and benefits of surgery. Risks toinclude pain, infection, bleeding, injury to bowel, bladder, uterus, tubes, ovaries, vessels, nerves, and ureters. All questions were answered and patient would like to proceed with surgery. 2. Patient has had a preoperative visit with her treating plant supervisor. He believes tubal ligation would benefit patient's health as future pregnancies could be detrimental in the treatment of her renal disease. He has cleared her from his perspective to proceed with the surgery. 3. Patient will have a preoperative anesthesia consult to determine if they feel she is able to have her surgery performed at [facility]. Call placed to Dr. Thakur's office (Nephrology) to obtain medical clearance for her upcoming surgerywith Dr Hoff. Left voicemail on Dr. Thakur's nurse line regarding need for clearance in writing and given our fax number and phone number as needed. documented in this encounterProtestant Deaconess HospitalSAW Instrument [id number] Hospital Discharge instructions Patient Education 04/23/2024 21:53:09 Influenza, Adult, Npai-ud-Swts Influenza, Adult Influenza is also called the flu. It is an infection in the lungs, nose, and throat (respiratory tract). It spreads easily from person to person (is contagious). The flu causes symptoms that are like a cold, along with high fever and body aches. What are the causes? This condition is caused by the influenza virus. You can get the virus by: Breathing in droplets that are in the air after a person infected with the flu coughed or sneezed. Touching something that has the virus on it and then touching your mouth, nose, or eyes. What increases the risk? Certain things may make you more likely to get the flu. These include: Not washing your hands often. Having close contact with many people during cold and flu season. Touching your mouth, eyes, or nose without first washing your hands. Not getting a flu shot every year. You may have a higher risk for the flu, and serious problems, such as a lung infection (pneumonia),if you: Are older than 65. Are . Have a weakened disease-fighting system (immune system) because of a disease or because you are taking certain medicines. Have a long-term (chronic) condition, such as: ?Heart, kidney, or lung disease. ?Diabetes. ?Asthma. Have a liver disorder. Are very overweight (morbidly obese). Have anemia. What are the signs or symptoms? Symptoms usually begin suddenly and last 4 14 days. They may include: Fever and chills. Headaches, body aches, or muscle aches. Sore throat. Cough. Runny or stuffy (congested) nose. Feeling discomfort in your chest. Not wanting to eat as much as normal. Feeling weak or tired. Feeling dizzy. Feeling sick to your stomach or throwing up. How is this treated? If the flu is found early, you can be treated with antiviral medicine. This can help to reduce how bad the illness is and how long it lasts. This may be given by mouth or through an IV tube. Taking care of yourself at home can help your symptoms get better. Your doctor may want you to: Take olfh-cgy-rpdnlaq medicines. Drink plenty of fluids. The flu often goes away on its own. If you have very bad symptoms or other problems, you may be treated in a hospital. Follow these instructions at home: Activity Rest as needed. Get plenty of sleep. Stay home from work or school as told by your doctor. ?Do not leave home until you do not have a fever for 24 hours without taking medicine. ?Leave home only to go to your doctor. Eating and drinking Take an ORS (oral rehydration solution). This is a drink that is sold at pharmacies and stores. Drink enough fluid to keep your pee pale yellow. Drink clear fluids in small amounts as you are able. Clear fluids include: ?Water. ?Ice chips. ?Fruit juice mixed with water. ?Low-calorie sports drinks. Eat bland foods that are easy to digest. Eat small amounts as you are able. These foods include: ?Bananas. ?Applesauce. ?Rice. ?Lean meats. ?Paxton. ?Crackers. Do not eat or drink: ?Fluids that have a lot of sugar or caffeine. ?Alcohol. ?Spicy or fatty foods. General instructions Take tlfh-cry-zcmsxiu and prescription medicines only as told by your doctor. Use a cool mist humidifier to add moisture to the air in your home. This can make it easier for youto breathe. ?When using a cool mist humidifier, clean it daily. Empty water and replace with clean water. Cover your mouth and nose when you cough or sneeze. Wash your hands with soap and water often and for at least 20 seconds. This is also important afteryou cough or sneeze. If you cannot use soap and water, use alcohol-based hand asset protection assistant. Keep all follow-up visits. How is this prevented? Get a flu shot every year. You may get the flu shot in late summer, fall, or winter. Ask your doctor when you should get your flu shot. Avoid contact with people who are sick during fall and winter. This is cold and flu season. Contact a doctor if: You get new symptoms. You have: ?Chest pain. ?Watery poop (diarrhea). ?A fever. Your cough gets worse. You start to have more mucus. You feel sick to your stomach. You throw up. Get help right away if you: Have shortness of breath. Have trouble breathing. Have skin or nails that turn a bluish color. Have very bad pain or stiffness in your neck. Get a sudden headache. Get sudden pain in your face or ear. Cannot eat or drink without throwing up. These symptoms may represent a serious problem that is an emergency. Get medical help right away. Call your local emergency services (911 in the [place] Do not wait to see if the symptoms will go away. Do not drive yourself to the hospital. Summary Influenza is also called the flu. It is an infection in the lungs, nose, and throat. It spreads easily from person to person. Take mazo-ied-rmeqrtp and prescription medicines only as told by your doctor. Getting a flu shot every year is the best way to not get the flu. This information is not intended to replace advice given to you by your health care provider. Make sure you discuss any questions you have with your health care provider. Document Revised: 10/22/2020 Document Reviewed: 10/24/2020 [email or web address] Patient Education 2023 [employer]rev. Follow Up Care 04/23/2024 20:19:18 With:DIVINE HAUSER Address: [facility] [place] [address] Business (1) When:04/26/2024 21:37:37 Comments:Call Dr for diagnosis based follow up [facility] 02-03-2025 NoteED Patient Education Note Infectious Disease Influenza, Adult Influenza is also called the flu. It is an infection in the lungs, nose, and throat (respiratory tract). It spreads easily from person to person (is contagious). The flu causes symptoms that are like a cold, along with high fever and body aches. What are the causes? This condition is caused by the influenza virus. You can get the virus by: ??? Breathing in droplets that are in the air after a person infected with the flu coughed or sneezed. ??? Touching something that has the virus on it and then touching your mouth, nose, or eyes. What increases the risk? Certain things may make you more likely to get the flu. These include: ??? Not washing your hands often. ??? Having close contact with many people during cold and flu season. ??? Touching your mouth, eyes, or nose without first washing your hands. ??? Not getting a flu shot every year. You may have a higher risk for the flu, and serious problems, such as a lung infection (pneumonia),if you: ??? Are older than 65. ??? Are . ??? Have a weakened disease-fighting system (immune system) because of a disease or because you aretaking certain medicines. ??? Have a long-term (chronic) condition, such as: ? Heart, kidney, or lung disease. ? Diabetes. ? Asthma. ??? Have a liver disorder. ??? Are very overweight (morbidly obese). ??? Have anemia. What are the signs or symptoms? Symptoms usually begin suddenly and last 4?14 days. They may include: ??? Fever and chills. ??? Headaches, body aches, or muscle aches. ??? Sore throat. ??? Cough. ??? Runny or stuffy (congested) nose. ??? Feeling discomfort in your chest. ??? Not wanting to eat as much as normal. ??? Feeling weak or tired. ??? Feeling dizzy. ??? Feeling sick to your stomach or throwing up. How is this treated? If the flu is found early, you can be treated with antiviral medicine. This can help to reduce how bad the illness is and how long it lasts. This may be given by mouth or through an IV tube. Taking care of yourself at home can help your symptoms get better. Your doctor may want you to: ??? Take vsmf-uvf-hinptqx medicines. ??? Drink plenty of fluids. The flu often goes away on its own. If you have very bad symptoms or other problems, you may be treated in a hospital. Follow these instructions at home: Activity ??? Rest as needed. Get plenty of sleep. ??? Stay home from work or school as told by your doctor. ? Do not leave home until you do not have a fever for 24 hours without taking medicine. ? Leave home only to go to your doctor. Eating and drinking ??? Take an ORS (oral rehydration solution). This is a drink that is sold at pharmacies and stores. ??? Drink enough fluid to keep your pee pale yellow. ??? Drink clear fluids in small amounts as you are able. Clear fluids include: ? Water. ? Ice chips. ? Fruit juice mixed with water. ? Low-calorie sports drinks. ??? Eat bland foods that are easy to digest. Eat small amounts as you are able. These foods include: ? Bananas. ? Applesauce. ? Rice. ? Lean meats. ? Paxton. ? Crackers. ??? Do not eat or drink: ? Fluids that have a lot of sugar or caffeine. ? Alcohol. ? Spicy or fatty foods. General instructions ??? Take jshg-blj-sivbksf and prescription medicines only as told by your doctor. ??? Use a cool mist humidifier to add moisture to the air in your home. This can make it easier foryou to breathe. ? When using a cool mist humidifier, clean it daily. Empty water and replace with clean water. ??? Cover your mouth and nose when you cough or sneeze. ??? Wash your hands with soap and water often and for at least 20 seconds. This is also important after you cough or sneeze. If you cannot use soap and water, use alcohol-based hand asset protection assistant. ??? Keep all follow-up visits. How is this prevented? Get a flu shot every year. You may get the flu shot in late summer, fall, or winter. Ask your doctor when you should get your flu shot. ??? Avoid contact with people who are sick during fall and winter. This is cold and flu season. Contact a doctor if: ??? You get new symptoms. ??? You have: ? Chest pain. ? Watery poop (diarrhea). ? A fever. ??? Your cough gets worse. ??? You start to have more mucus. ??? You feel sick to your stomach. ??? You throw up. Get help right away if you: ??? Have shortness of breath. ??? Have trouble breathing. ??? Have skin or nails that turn a bluish color. ??? Have very bad pain or stiffness in your neck. ??? Get a sudden headache. ??? Get sudden pain in your face or ear. ??? Cannot eat or drink without throwing up. These symptoms may represent a serious problem that is an emergency. Get medical help right away. Call your local emergency services (911 in the [place] (more content not included)...[facility]02-03-2025 Evaluation + Plan noteExtracted from:Title:ED NoteAuthor:Mumtaz MCGINNIS, Efrem AngeloDate:04/23/24 Influenza A (J10.1: Influenz a due to other identified influenza virus with other respiratory manifestations) Orders: ondansetron, 12 mg = 3 tab(s), Tab-Dis, Oral, Once, Stop date 04/23/24 21:36:00 EST, STAT, Start date 04/23/24 21:36:00 EST, 04/23/24 21:36:00 EST ondansetron, 4 mg = 1 tab(s), Oral, q8hr, PRN Nausea/Vomiting, # 20 tab(s), Refills(s) 0, Pharmacy:[facility]/pharmacy #[id number], 162, cm, 04/23/24 20:28:00 EST, Height/Length Dosing, 105.6, kg, 04/23/24 20:28:00 EST, Weight Dosing ondansetron, 4 mg = 1 tab(s), Tab-Dis, Oral, Once, Stop date 04/23/24 20:53:00 EST, STAT, Start date 04/23/24 20:53:00 EST, 04/23/24 20:53:00 EST Basic Metabolic Panel Beta hCG Qual CBC w/ Auto Diff eGFR Hepatic Function Panel Influenza A&B Ag Lipase Level UA with Cult Rflx [facility] 01-29-2025 Instructions* Patient Instructions* Neeru Keenan RN - 04/18/2024 12:45 PM EST Preoperative Education Checklist- General Surgery date: 05/09/24 Surgery time: 1145a Arrival time: 945a 1. Bring a photo ID and your insurance card with you the day of surgery. You will check in at the main lobby of the [facility]- registration desk is straight ahead as soon as you walk in. Tell them you are here for surgery. 2. If you have a Living Will/Durable Power of Hat Finisher for Health Care that is not on file here, please bring a copy the day of surgery. 3. Please shower/bathe the night before surgery with the provided soap or wipes. Do not shower the morning of surgery- you will do use wipes when you arrive here at the hospital before getting into your surgical gown. Do not shave the area of your procedure for 2 days prior to your surgery. 4. NO powder, lotion, perfume/cologne, aftershave, make-up, deodorant, or hair products after you have bathed. 5. NO nail [place]/acrylic on at least one finger. If you are having a hand, wrist or foot surgery then all nail [place] and artificial/acrylic nails must be removed from that hand or foot. 6. Avoid ALL Aspirin and non-steroidal anti-inflammatory drugs and certain vitamins (Ibuprofen, Advil, Aleve, Excedrin, Meloxicam, Celebrex, fish/krill oil, etc.) for 7 days prior to surgery as instructed by your surgeon and/or your prescribing doctor. Tylenol IS ALLOWED. If you are on Ticlid, Xarelto, Eliquis, Pradaxa, Plavix or Coumadin, please check with your prescribing doctor for instructions for when to stop them. 7. If you use an inhaler, continue to use it routinely. 8. Nothing to eat or drink (not even water, gum, mints, or hard candy!) AFTER midnight prior to your surgery. 9. Take only medications that you are instructed to on the morning of surgery with a TINY SIP OF WATER. 10. Choose a responsible adult that will be able to drive you home when you are discharged from your hospital stay for your surgery and can stay with you in your home for 24 hours after your procedure. You must NOT drive any vehicle or operate any machinery for 24 hours after surgery. 11. When you dress for your appointment, please wear loose fitting clothing that is appropriate to accommodate your surgical area procedure. BRING WITH YOU ANY DEVICES YOU MAY NEED: JUAN PABLO hose, ice machine, sling/swath, brace or special shoe, oversized zip-up or button up shirt, CPAP machine if staying overnight. 12. Do NOT wear jewelry, watches, or any piercings or metal for surgery- leave these valuables and money at home. 13. Do NOT wear contact lenses for surgery- glasses are okay if needed. 14. The anesthesiologist will talk with you the day of surgery and will ask you to sign a Consent Form. 15. Refrain from smoking or any type of tobacco use for at least 8 hours and marijuana for 24 hoursprior to arrival for your surgery. 16. If a GREEN BLOOD band is given to you, please bring it with you for the day of surgery. 17. Notify your surgeon if you develop any illness before your surgery. 18. If you are staying overnight, please DO NOT BRING your home medications with you. 19. If you have any questions prior to surgery, please call the Preadmission Testing office at [phone], Mon.-Fri. 7 a.m.-3 p.m. Leave a voicemail if needed. Pre-Surgery Instructions: Medication Instructions cholecalciferol, vitamin D3, (VITAMIN D3) 5,000 units capsule Stop taking 0 days prior to procedure losartan (COZAAR) 25 mg tablet Take evening before surgery as usual How to Avoid an Infection after Your Surgery Your doctor will give you specific instructions, but remember: -ALWAYS wash hands before caring for your incision. -No picking, scratching, or rubbing your incision. -No creams, lotion, powder, rubbing alcohol or hydrogen peroxide on the incision (can harm the tissue and slow healing). -Your doctor will give you specific instructions for what type of dressing you will need and how often it will need changed for infection purposes. -No tight clothing on incision. -Do not allow anyone to touch your incision unless they are cleaning, checking, or redressing it (be sure they wash their hands first). -No contact of your incision with pets; avoid sleeping with pets. -Take full course of antibiotic if prescribed for you after surgery- do not stop unless directed darion your physician. You may also be given an antibiotic prior to your surgery to help prevent surgical site infections. -Eat a healthy and varied diet including proteins, fruits, and vegetables to help promote wound healing and keep blood sugars under control if you are diabetic. -Smoking slows the healing process by decreasing the amount of oxygen in your blood that is needed for tissue healing. Try to avoid or stop smoking if possible. LOOK at your incision each morning and each night to check the progress of healing. Some soreness, numbness, itching and/or mild bruising around the incision is normal. Call your doctor if you noticeany of the following: -Increased redness or hardening around the incision area. -Increased pain at the incision site. -Incision feels hot to the touch. -Swelling or pulling apart of the incision edges. -Yellow or green drainage or foul odor coming from the incision. -Bleeding from the incision (apply pressure as needed). -Fever higher than 101 degrees Fahrenheit for more than 4 hours. SHOWERING: Your doctor will give you specific instructions, but remember: -Be careful getting into and out of the shower. -Showers should be quick (5 minutes or less). -Use a clean washcloth to gently wash your incision with soap and water and pat the area dry with aclean towel. -No re-using wash cloths or towels; get a fresh one to clean your incision. -Do not soak in the bathtub, go swimming or use a hot tub (Jacuzzi), or perform activities where your incision is submerged in water or exposed to any fluids or substances until instructed by your doctor. -If your have the sticky strips (steri-strips) over the incision, it is OK to shower with them. Do not remove them. Let them fall off on their own. If you have a question, call your doctor s office. Go to the follow-up appointment with your doctor. documented [facility]The [facility] Miscellaneous Notes* Telephone Encounter - Samantha Florez - 04/04/2024 1:25 PM EST Patient scheduled for surgery with Dr. Hoff on 05/09/24 at 11:45am with hospital arrival time of 9:45am. PAT scheduled on 04/18/24 at 12:45pm. Patient has Pre-Op appointment with Dr. Hoff on 04/24/24 to sign hospital consent. VM left for Patient to call Office for informaton. * Telephone Encounter - Tigist Lincoln CMA - 04/04/2024 1:25 PM EST Patient called back and was advised of results * Telephone Encounter - Samantha Florez - 04/04/2024 1:25 PM EST Surgery information letter mailed to patient. [facility] Telephone encounter Note* Telephone Encounter - Samantha Florez - 04/04/2024 1:25 PM EST Patient scheduled for surgery with Dr. Hoff on 05/09/24 at 11:45am with hospital arrival time of 9:45am. PAT scheduled on 04/18/24 at 12:45pm. Patient has Pre-Op appointment with Dr. Hoff on 04/24/24 to sign hospital consent. VM left for Patient to call Office for informaton. [facility]01-15-[facility] Telephone encounter Note* Telephone Encounter - Tigist Lincoln CMA - 04/04/2024 1:25 PM EST Patient called back and was advised of results [facility]01-15-[facility] Telephone encounter Note* Telephone Encounter - Samantha Florez - 04/04/2024 1:25 PM EST Surgery information letter mailed to patient. [facility]01-10[facility] History of Present illness Narrative* Zoya Thakur MD - 03/30/2024 4:00 PM EST Images from the original note were not included. OUTPATIENT NEPHROLOGY FOLLOW UP NOTE Date of Service: 03/30/24 PCP: NO PCP, NO PCP History of Present Illness Tom Kovacs is a 28 y.o. female, who is following with us for chronic kidney disease stage 3 secondary to biopsy-proven secondary Focal Segmental and Global Glomerulosclerosis secondary toobesity. The patient was last seen in our office back in October of 2022. She was lost to follow-up since then. She has not been taking any medications since then. She has been following up with OB for tubal ligation. Given her chronic kidney disease, she was sent to us for clearance for tubal ligation. She denies any recent illnesses, surgeries or procedures. Denies any pain or burning on urination difficulty passing urine. Denies any edema. On most recent blood work from March 27, 2024 creatinine was 1.3 with estimated GFR 58. 25 (OH) Vitamin-D level was 11. Random urine protein to creatinine ratio was 1.6 which is down from 2.8 in January of 2023 and 2.7 from October of 2022. 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 Renal ultrasound from 03/31/2021 showed right kidney size was 9.7 cm and left kidney size was 9.5 cm no evidence of hydronephrosis. Renal serologies currently negative negative COOPER negative double-stranded DNA negative anti-GBM normal complements, normal SPEP, hemoglobin A1c 5.0, hepatitis and HIV panel negative. ANCA was negative. 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 A renalbiopsy was performed on February 17, 2022. This demonstrated obesity associated glomerulomegaly. There was no evidence of a glomerular disease of the immune complex type. The glomeruli on light microscopy appear diffusely enlarged. Therefore, the patient's proteinuria was felt to be due to obesity associated glomerular hyper filtration injury. Electron microscopy showed segmental moderate foot process effacement (< 80%) Therefore, secondary focal segmental glomerulosclerosis associated with obesity is felt to be possible in this patient. Hypertension Obesity Hypovitaminosis D History of vesicoureteral reflux with recurrent pyelonephritis status post ureteral reconstruction when she was around 14 years old Tonsillectomy x2 Medical, Surgical, Family & Social History Medical History: Past Medical History: Diagnosis Date Chronic kidney disease STAGE 2 (POSSIBLY SECONDARY TO PYLEONEPHRITIS) Hypertension Surgical History: Past Surgical History: Procedure Laterality Date N/A 07/28/2021 Performed by Radha Castaneda MD at [facility] OR REPEAT N/A 10/13/2022 Performed by Traci Hoff DO at [facility] OR TONSILLECTOMY URETHRA SURGERY Social History: Social History Socioeconomic History Marital status: Spouse name: Not on file Number of children: Not on file Years of education: Not on file Highest education level: Not on file Occupational History Not on file Tobacco Use Smoking status: Never Smokeless tobacco: Never Vaping Use Vaping status: Never Used Substance and Sexual Activity Alcohol use: Not Currently Drug use: Never Sexual activity: Not Currently Partners: Male control/protection: Condom Other Topics Concern Not on file Social History Narrative Not on file Social Drivers of Health Financial Resource Strain: Low Risk (10/26/2022) Overall Financial Resource Strain (CARDIA) Difficulty of Paying Living Expenses: Not hard at all Food Insecurity: No Food Insecurity (12/23/2022) Hunger Screening Food Insecurity - Worry: Never True Food Insecurity - Inability: Never True Transportation Needs: No Transportation Needs (10/04/2022) PRAPARE - Transportation Lack of Transportation (Medical): No Lack of Transportation (Non-Medical): No Physical Activity: Not on file Stress: Not on file Social Connections: Not on file Interpersonal Safety: Not At Risk (10/26/2022) Humiliation, Afraid, Rape, and Kick questionnaire Fear of Current or Ex-Partner: No Emotionally Abused: No Physically Abused: No Sexually Abused: No Housing Instability: Low Risk (10/13/2022) Housing Instability Housing Instability: No Family History: Family History Problem Relation Age of Onset Diabetes Paternal Grandmother Diabetes Maternal Grandmother Heart failure Father Hypertension Father Heart failure Mother Breast cancer Neg Hx Ovarian cancer Neg Hx Allergies & Medications Allergies: No Known Allergies Current Meds: Current Outpatient Medications Medication Sig Dispense Refill cholecalciferol, vitamin D3, (VITAMIN D3) 5,000 units capsule Take 2 tablets p.o. daily, e.g., [address] units daily. (Patient not taking: Reported on 03/30/2024) 135 capsule 3 labetaloL (NORMODYNE) 100 mg tablet Take 1 tablet (100 mg total) by mouth 3 (three) times a day. (Patient not taking: Reported on 03/30/2024) magnesium oxide (MAGOX) 400 mg tablet Take 1 tablet (400 mg total) by mouth in the morning and 1 tablet (400 mg total) before bedtime. (Patient not taking: Reported on 03/30/2024) 60 tablet 4 sertraline (ZOLOFT) 25 mg tablet Take 1 tablet (25 mg total) by mouth in the morning. (Patient not taking: Reported on 03/30/2024) 30 tablet 2 No current facility-administered medications for this visit. Review of Systems Review of Systems Constitutional: Negative for chills, diaphoresis, fatigue and fever. HENT: Negative for congestion, ear discharge, ear pain, facial swelling and hearing loss. Eyes: Negative for pain, discharge, redness and itching. Respiratory: Negative for cough, shortness of breath and wheezing. Cardiovascular: Negative for chest pain, palpitations and leg swelling. Gastrointestinal: Negative for abdominal pain, constipation, diarrhea, nausea and vomiting. Endocrine: Negative for polydipsia, polyphagia and polyuria. Genitourinary: Negative for decreased urine volume, difficulty urinating, dysuria, flank pain, frequency, hematuria and urgency. Musculoskeletal: Negative for arthralgias, joint swelling and myalgias. Skin: Negative for pallor, rash and wound. Neurological: Negative for dizziness, tremors, seizures, syncope, weakness, light-headedness, numbness and headaches. Hematological: Negative for adenopathy. Does not bruise/bleed easily. Physical Exam Vital Signs: Vitals: 03/30/24 1549 03/30/24 1551 BP: 141/85 130/89 BP Site: Left Arm Left Arm BP Postition: Sitting Standing BP CUFF SIZE: M (9-13 inches) M (9-13 inches) Pulse: 65 89 SpO2: 98% Weight: 110.7 kg (244 lb) BMI: Body mass index is 41.88 kg/m . General appearance: alert in no apparent distress. Psychiatric: Oriented to place, time and person HEENT: atraumatic, supple, moist oral mucosa, no JVD Cardiovascular: normal S1-S2, no edema Respiratory: No respiratory distress with no use of accessory muscles. Clear to auscultation bilaterally with no wheezes or crackles Abdomen: soft, no tenderness, no guarding, positive bowel sounds and no hepato or splenomegaly Vascular: adequate pulses and no carotid bruits. Musculoskeletal: no joint swelling or tenderness. Neurologic: No focal deficit in upper or lower extremities Lymphatic: no cervical or axillary lymphadenopathy. Laboratory Studies Chemistry: Lab Results Component Value Date SODIUM 140 03/27/2024 SODIUM 140 01/31/2023 SODIUM 143 10/29/2022 K 4.2 03/27/2024 K 4.2 01/31/2023 K 4.6 10/29/2022 CL 106 03/27/2024 CL 109 01/31/2023 CL 108 10/29/2022 CO2 27 03/27/2024 CO2 23 01/31/2023 CO2 23 10/29/2022 ANIONGAP 7 03/27/2024 ANIONGAP 8 01/31/2023 ANIONGAP 12 10/29/2022 BUN 25 (H) 03/27/2024 BUN 20 01/31/2023 BUN 22 10/29/2022 CREATININE 1.31 (H) 03/27/2024 CREATININE 1.44 (H) 01/31/2023 CREATININE 1.66 (H) 10/29/2022 EGFR 58 (L) 03/27/2024 EGFR 52 (L) 01/31/2023 EGFR 44 (L) 10/29/2022 GFR 51 (L) 10/06/2021 GFR >60 10/06/2021 GFR >60 07/27/2021 GFR >60 07/27/2021 CALCIUM 9.2 03/27/2024 CALCIUM 8.9 01/31/2023 CALCIUM 9.4 10/29/2022 MG 1.8 03/27/2024 MG 1.7 (L) 01/31/2023 MG 1.9 10/29/2022 PHOSPHORUS 2.9 03/27/2024 PHOSPHORUS 2.3 (L) 01/31/2023 PHOSPHORUS 4.7 10/29/2022 IONIZEDCALC 4.8 04/01/2021 Lab Results Component Value Date TOTALPROTEI 6.3 10/13/2022 TOTALPROTEI 6.1 10/07/2022 ALBUMIN 2.6 (L) 10/13/2022 ALBUMIN 2.6 (L) 10/07/2022 AST 12 10/13/2022 AST 11 10/07/2022 ALT 8 10/13/2022 ALT 9 10/07/2022 BILIRUBIN Negative 03/27/2024 BILIRUBIN Negative 01/31/2023 ALKPHOS 113 10/13/2022 ALKPHOS 113 10/07/2022 Hematology: Lab Results Component Value Date WBC 10.8 03/27/2024 WBC 11.0 01/31/2023 HGB 13.8 03/27/2024 HGB 12.1 01/31/2023 HCT 41.5 03/27/2024 HCT 37.3 01/31/2023 PLT 348 03/27/2024 PLT 324 01/31/2023 Anemia Studies: No results found for: IRONSAT , FERRITIN , [id number] , FOLATE Mineral and Bone Labs: Lab Results Component Value Date CALCIUM 9.2 03/27/2024 CALCIUM 8.9 01/31/2023 PHOSPHORUS 2.9 03/27/2024 PHOSPHORUS 2.3 (L) 01/31/2023 VITD25 11.0 (L) 03/27/2024 VITD25 11.2 (L) 01/31/2023 PTH 97 (H) 03/27/2024 PTH 87 01/31/2023 Urine Studies: Lab Results Component Value Date COLOR LUBA (A) 03/27/2024 TURBIDITY HAZY (A) 03/27/2024 SPECIFICGRA 1.017 03/27/2024 NITRITE Positive (A) 03/27/2024 PHURINE 6.0 03/27/2024 LEUKOCYTE Large (A) 03/27/2024 PROTEIN 200 (A) 03/27/2024 KETONES Negative 03/27/2024 UROBILINOGEN <1.1 03/27/2024 BLOODHGB Large (A) 03/27/2024 Lab Results Component Value Date UPROCRTRAT 1.61 (H) 03/27/2024 UPROCRTRAT 2.80 (H) 01/31/2023 UPROCRTRAT 2.74 (H) 10/29/2022 Immunology Profile Lab Results Component Value Date PROTELECTR 03/31/2021 Unremarkable protein distribution, no monoclonal bands. ANASCREEN Negative 03/31/2021 C3 151 03/31/2021 C4 39 03/31/2021 ANCA See Below 03/31/2021 ANTIGLOMERU <0.2 03/31/2021 Lab Results Component Value Date HEPAIGM Non-Reactive 05/27/2022 HEPBIGM Negative 05/27/2022 Imaging Echocardiogram: No results found. Assessment and Plan 1. Chronic kidney disease stage IIIA with estimated GFR of 58 which is secondary to biopsy-proven Focal Segmental and Global Glomerulosclerosis secondary to obesity. The patient was again educated onimportance blood pressure control and avoiding frequent of NSAIDs, Phospho-Soda enemas and IV contrast as well as exercise and weight loss and does avoiding smoking to prevent the progression of her kidney disease. She will be started on losartan for better blood pressure control and proteinuria control. She was educated on importance of not getting on losartan and the use of contraception. She was advised to continue to use contraception and to stop losartan and call us immediately ifshe gets . She tells me that she is pursuing tubal ligation soon. 2. Hypertension with elevated blood pressure. She will be started on losartan. Salt restriction wasemphasized. Exercise and weight loss were emphasized. Target blood pressure is less than 130/80. 3. Secondary Focal Segmental and Global Glomerulosclerosis secondary to obesity with nonnephrotic proteinuria. The patient tells me that she is interested in weight loss. She will discussed weight loss medications with her primary care physician. She will be started on losartan for proteinuria control. Losartan will be increased as tolerated by her blood pressure for better blood pressure controland proteinuria control. We could consider adding an SGL T2 inhibitor if proteinuria persist. 4. Hypovitaminosis D: She will be restarted back on vitamin-D and repeat 25 hydroxy vitamin-D levelwill be ordered in 3 months. 5. Hypomagnesemia: Her magnesium level is within normal limits at this time. 6. Obesity: The patient was encouraged to discuss weight loss medications with her primary care provider. 7. Pyuria and hematuria on urine dipstick. Urine culture will be ordered. The patient will have a urine culture soon for pyuria and hematuria. She will have a BMP 2 weeks after starting losartan. She will return see us back in 3 months for follow-up Discussed with her mother who was present during this visit in details. Thank you NO PCP, NO PCP for allowing us to continue to participate in the care of Tom Kovacs and please do not hesitate to contact me with any questions at (Office) or (Answering service). Zoya Thakur MD [facility] This note was created with the assistance of a speech-recognition program. Although the intention is to generate a document that actually reflects the content of the visit, no guarantees can be provided that every mistake has been identified and corrected by editing. documented in this encounterThe [facility]01[facility] History of Present illness Narrative* Traci Hoff, - 03/27/2024 2:30 PM EST Subjective Patient ID: Tom Kovacs is a 28 y.o. female who has had 2 pregnancies and 2 C-sections who presents today with a desire for tubal ligation. Patient has nephrotic syndrome and had high-riskpregnancies. She and her are both present, and express that they do not want anymore children and they are concerned with the health risk of pregnancies for Tom. They would like to proceedwith permanent sterilization. Chief Complaint: Desires sterilization Menstrual History: OB History 2 Para 2 Term 2 0 AB 0 Living 2 SAB 0 IAB 0 Ectopic 0 Multiple 0 Live Births 2 No LMP recorded. The following portions of the patient's history were reviewed and updated as appropriate: allergies, current medications, past family history, past medical history, past social history, past surgicalhistory, problem list, and medication reconciliation was completed including current medication andpost discharge medication. Review of Systems Constitutional: negative Respiratory: negative Cardiovascular: negative Gastrointestinal: negative Genitourinary: 2 prior pregnancies via , desires sterilization, is followed by Nephrology for nephrotic syndrome Behavioral/Psych: negative Objective BP 122/74 Ht 162.6 cm (5' 4 ) Wt 108.8 kg (239 lb 12.8 oz) BMI 41.16 kg/m General: alert, appears stated age, and cooperative Heart: regular rate and rhythm, S1, S2 normal, no murmur, click, rub or gallop Lungs: clear to auscultation bilaterally Abdomen: soft, non-tender, without masses or organomegaly Assessment 1. Encounter for consultation for female sterilization Plan 1. [place] Medicaid consents reviewed today. Consents were signed. 2. 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 We ask that she get preoperative clearance from Nephrology prior to proceeding with surgery. Patient voices she will do so. 3. Will have patient back in 4 weeks for preop visit and signed operative consents. documented in this [facility]The [facility]01-[facility] Miscellaneous Notes* Telephone Encounter - Glenda Powers CMA - 03/27/2024 9:45 AM EST left a voicemail to confirm upcoming appointment 03/30/24 with angela at 400pm documented in this encounterThe [facility]01-[facility] Telephone encounter Note* Telephone Encounter - Glenda Powers CMA - 03/27/2024 9:45 AM EST left a voicemail to confirm upcoming appointment 03/30/24 with angela at 400pm [facility] Hospital Discharge instructions Patient Education 05/01/2023 15:10:20 Otitis Media, Adult Otitis Media, Adult Otitis media occurs when there is inflammation and fluid in the middle ear with signs and symptoms of an acute infection. The middle ear is a part of the ear that contains bones for hearing as well as air that helps send sounds to the brain. When infected fluid builds up in this space, it causes pressure and can lead to an ear infection. The eustachian tube connects the middle ear to the back of the nose (nasopharynx) and normally allows air into the middle ear. If the eustachian tube becomes blocked, fluid can build up and become infected. What are the causes? This condition is caused by a blockage in the eustachian tube. This can be caused by mucus or by swelling of the tube. Problems that can cause a blockage include: A cold or other upper respiratory infection. Allergies. An irritant, such as tobacco smoke. Enlarged adenoids. The adenoids are areas of soft tissue located high in the back of the throat, behind the nose and the roof of the mouth. They are part of the body's defense system (immune system). A mass in the nasopharynx. Damage to the ear caused by pressure changes (barotrauma). What increases the risk? You are more likely to develop this condition if you: Smoke or are exposed to tobacco smoke. Have an opening in the roof of your mouth (cleft palate). Have gastroesophageal reflux. Have an immune system disorder. What are the signs or symptoms? Symptoms of this condition include: Ear pain. Fever. Decreased hearing. Tiredness (lethargy). Fluid leaking from the ear, if the eardrum is ruptured or has burst. Ringing in the ear. How is this diagnosed? This condition is diagnosed with a physical exam. During the exam, your health care provider will use an instrument called an otoscope to look in your ear and check for redness, swelling, and fluid. He or she will also ask about your symptoms. Your health care provider may also order tests, such as: A pneumatic otoscopy. This is a test to check the movement of the eardrum. It is done by squeezing a small amount of air into the ear. A tympanogram. This is a test that shows how well the eardrum moves in response to air pressure in the ear canal. It provides a graph for your health care provider to review. How is this treated? This condition can go away on its own within 3 5 days. But if the condition is caused by a bacterial infection and does not go away on its own, or if it keeps coming back, your health care provider may: Prescribe antibiotic medicine to treat the infection. Prescribe or recommend medicines to control pain. Follow these instructions at home: Take jivo-gzv-efwroid and prescription medicines only as told by your health care provider. If you were prescribed an antibiotic medicine, take it as told by your health care provider. Do notstop taking the antibiotic even if you start to feel better. Keep all follow-up visits. This is important. Contact a health care provider if: You have bleeding from your nose. There is a lump on your neck. You are not feeling better in 5 days. You feel worse instead of better. Get help right away if: You have severe pain that is not controlled with medicine. You have swelling, redness, or pain around your ear. You have stiffness in your neck. A part of your face is not moving (paralyzed). The bone behind your ear (mastoid bone) is tender when you touch it. You develop a severe headache. Summary Otitis media is redness, soreness, and swelling of the middle ear, usually resulting in pain and decreased hearing. This condition can go away on its own within 3 5 days. If the problem does not go away in 3 5 days, your health care provider may give you medicines to treat the infection. If you were prescribed an antibiotic medicine, take it as told by your health care provider. Follow all instructions that were given to you by your health care provider. This information is not intended to replace advice given to you by your health care provider. Make sure you discuss any questions you have with your health care provider. Document Revised: 06/15/2021 Document Reviewed: 06/15/2021 [email or web address] Patient Education 2022 [employer]rev. Follow Up Care 05/01/2023 14:34:22 With:DIVINE HAUSER Address[facility] [place] [address] Business (1) When:05/04/2023 15:10:02 Comments:Call the office of your primary care doctor to arrange for follow-up within the above-stated timeframe. Follow-up with your primary care doctor about this ED visit. You should review your labs, imaging, and diagnoses from this ED visit with your primary care physician. There are occasionally non-emergent findings that require additional follow-up after your ED visit. If you were prescribed medications you should discuss possible side-effects and drug interactions with your pharmacist. Call 911 or go to the nearest Emergency Department if you develop any new or worsening symptoms. [facility]02-11-2024 Evaluation + Plan noteExtracted from: Title:ED NoteAuthor:Brian De La Cruz DODate:05/01/23 Otitis media (H66.90: Otitis media, unspecified, unspecified ear) Pharyngitis (J02.9: Acute pharyngitis, unspecified) Orders: amoxicillin, 500 mg = 1 cap(s), Oral, BID, X 7 day(s), # 14 cap(s), Refills(s) 0, Pharmacy: [facility]/pharmacy #[id number], 163, cm, 05/01/23 14:39:00 EST, Height/Length Dosing, 114.6, kg, 05/01/23 14:39:00 EST,Weight Dosing dexamethasone, 10 mg = 2.5 mL, Injection, Oral, Once, Stop date 05/01/23 15:10:00 EST, STAT, Start date 05/01/23 15:10:00 EST, 05/01/23 15:10:00 EST [facility]11-23-2023 Hospital Discharge instructions Follow Up Care 02/10/2023 15:28:02 With:[employer] [facility] Address: [address] [place] [address] [place] [address]- Business (1) When:02/13/2023 15:56:22 With:XXXX NONE Address: [place] When:Within 3 Day(s) [facility]11-23-2023 Evaluation + Plan noteExtracted from: Title:ED NoteAuthor:Andi Workman DODate:02/10/23 Otitis media, right (H66.91: Otitis media, unspecified, right ear) Preauricular lymphadenitis (I88.9: Nonspecific lymphadenitis, unspecified) Orders: acetaminophen-hydrocodone, 1 EA, Tab, Oral, Once, Stop date 02/10/23 15:55:00 EST, STAT, Start date02/10/23 15:55:00 EST doxycycline, 100 mg = 1 tab(s), Oral, BID, X 7 day(s), # 14 tab(s), Refills(s) 0, Pharmacy: [facility]/pharmacy #[id number], 163, cm, 02/10/23 15:36:00 EST, Height/Length Dosing, 113, kg, 02/10/23 15:36:00 EST, Weight Dosing doxycycline, 100 mg = 1 cap(s), Cap, Oral, Once, Stop date 02/10/23 15:55:00 EST, STAT, Start date 02/10/23 15:55:00 EST, 02/10/23 15:55:00 EST naproxen, 500 mg = 1 tab(s), Oral, BID, Take one tab by mouth two times a day, # 14 tab(s), Refills(s) 0, Pharmacy: [facility]/pharmacy #[id number], 163, cm, 02/10/23 15:36:00 EST, Height/Length Dosing, 113, kg, 02/10/23 15:36:00 EST, Weight Dosing predniSONE, 60 mg = 3 tab(s), Tab, Oral, Once, Stop date 02/10/23 15:56:00 EST, STAT, Start date 02/10/23 15:56:00 EST, 02/10/23 15:56:00 EST predniSONE, 50 mg = 1 tab(s), Oral, Daily, X 5 day(s), # 5 tab(s), Refills(s) 0, Pharmacy: [facility]/pharmacy #[id number], 163, cm, 02/10/23 15:36:00 EST, Height/Length Dosing, 113, kg, 02/10/23 15:36:00 EST, Weight Dosing [facility]08-25-2023 Hospital Discharge instructions Patient Education 11/12/2022 19:58:33 Otitis Media, Adult, Visu-nw-Gnsa Otitis Media, Adult Otitis media is a condition in which the middle ear is red and swollen (inflamed) and full of fluid. The middle ear is the part of the ear that contains bones for hearing as well as air that helps send sounds to the brain. The condition usually goes away on its own. What are the causes? This condition is caused by a blockage in the eustachian tube. This tube connects the middle ear tothe back of the nose. It normally allows air into the middle ear. The blockage is caused by fluid or swelling. Problems that can cause blockage include: A cold or infection that affects the nose, mouth, or throat. Allergies. An irritant, such as tobacco smoke. Adenoids that have become large. The adenoids are soft tissue located in the back of the throat, behind the nose and the roof of the mouth. Growth or swelling in the upper part of the throat, just behind the nose (nasopharynx). Damage to the ear caused by a change in pressure. This is called barotrauma. What increases the risk? You are more likely to develop this condition if you: Smoke or are exposed to tobacco smoke. Have an opening in the roof of your mouth (cleft palate). Have acid reflux. Have problems in your body's defense system (immune system). What are the signs or symptoms? Symptoms of this condition include: Ear pain. Fever. Problems with hearing. Being tired. Fluid leaking from the ear. Ringing in the ear. How is this treated? This condition can go away on its own within 3 5 days. But if the condition is caused by germs (bacteria) and does not go away on its own, or if it keeps coming back, your doctor may: Give you antibiotic medicines. Give you medicines for pain. Follow these instructions at home: Take igqo-nga-tskmssb and prescription medicines only as told by your doctor. If you were prescribed an antibiotic medicine, take it as told by your doctor. Do not stop taking it even if you start to feel better. Keep all follow-up visits. Contact a doctor if: You have bleeding from your nose. There is a lump on your neck. You are not feeling better in 5 days. You feel worse instead of better. Get help right away if: You have pain that is not helped with medicine. You have swelling, redness, or pain around your ear. You get a stiff neck. You cannot move part of your face (paralysis). You notice that the bone behind your ear hurts when you touch it. You get a very bad headache. Summary Otitis media means that the middle ear is red, swollen, and full of fluid. This condition usually goes away on its own. If the problem does not go away, treatment may be needed. You may be given medicines to treat the infection or to treat your pain. If you were prescribed an antibiotic medicine, take it as told by your doctor. Do not stop taking it even if you start to feel better. Keep all follow-up visits. This information is not intended to replace advice given to you by your health care provider. Make sure you discuss any questions you have with your health care provider. Document Revised: 06/15/2021 Document Reviewed: 06/15/2021 [email or web address] Patient Education 2022 B2Brev. Follow Up Care 11/12/2022 19:05:29 With:Darlene OTERO Address: [address] [place], [place] [address] [place] [address]- Business (1) When:11/15/2022 19:45:06 Comments:Take the antibiotics as prescribed and to you have completed the course. You can use ibuprofen, Tylenol every 6 hours as needed for pain. Please return to the ED for any new or worsening symptoms. With:XXXX NONE Address: [place] When:11/15/2022 19:44:56 [facility]08-25-2023 Evaluation + Plan noteExtracted from: Title:ED NoteAuthor:Osmar Duran DO ADate:11/12/22 Otitis media (H66.90: Otitis media, unspecified, unspecified ear) Orders: amoxicillin, 875 mg = 1 tab(s), Tab, Oral, Once, Stop date 11/12/22 19:42:00 EDT, STAT, Start date 11/12/22 19:42:00 EDT, 11/12/22 19:42:00 EDT amoxicillin, 875 mg = 1 tab(s), Oral, BID, X 10 day(s), # 20 tab(s), Refills(s) 0, Pharmacy: [facility]/pharmacy #[id number], 163, cm, 11/12/22 19:09:00 EDT, Height/Length Dosing, 113, kg, 11/12/22 19:09:00 EDT, Weight Dosing ibuprofen, 600 mg = 1 tab(s), Tab, Oral, Once, Stop date 11/12/22 19:43:00 EDT, STAT, Start date 11/12/22 19:43:00 EDT, 11/12/22 19:43:00 EDT [facility]01-14-2023 Hospital Discharge instructions Patient Education 04/03/2022 21:51:45 Oral Thrush, Adult, Xgkd-rd-Blzm Oral Thrush, Adult Oral thrush is an infection in your mouth and throat. It causes white patches on your tongue and inyour mouth. Follow these instructions at home: Helping with soreness To lessen your pain: ?Drink cold liquids, like water and iced tea. ?Eat frozen ice pops or frozen juices. ?Eat foods that are easy to swallow, like gelatin and ice cream. ?Drink from a straw if the patches in your mouth are painful. General instructions Take or use amry-cxh-vqkobnu and prescription medicines only as told by your doctor. Medicine for oral thrush may be something to swallow, or it may be something to put on the infected area. Eat plain yogurt that has live cultures in it. Read the label to make sure. If you wear dentures: ?Take out your dentures before you go to bed. ?Epping them well. ?Soak them in a denture silverware cleaner. Rinse your mouth with warm salt-water many times a day. To make the salt-water mixture, completely dissolve 1/2 1 teaspoon of salt in 1 cup of warm water. Contact a doctor if: Your problems are getting worse. Your problems do not get better in less than 7 days with treatment. Your infection is spreading. This may show as white patches on the skin outside of your mouth. You are nursing your baby and you have redness and pain in the nipples. This information is not intended to replace advice given to you by your health care provider. Make sure you discuss any questions you have with your health care provider. Document Released: 06/01/2010 Document Revised: 06/09/2018 Document Reviewed: 11/29/2016 [email or web address] Patient Education 2020 B2Brev. Follow Up Care 04/03/2022 21:00:46 With:Temi VALENTINE, LAMBERTO Reed, PED Address: [address] [place] [address]- When:04/06/2022 [facility]01-14-2023 Evaluation + Plan noteExtracted from: Title:ED NoteAuthor:Ambreen Khan PA-CDate:04/03/22 1. Oral candidiasis (B37.0: Candidal stomatitis) Ordered: nystatin, 500,000 unit(s) = 5 mL, Oral, QID, Swish and Swallow, X 10 day(s), # 200 mL, Refills(s) 0, Pharmacy: [facility]/pharmacy #[id number], 163, cm, 04/03/22 21:05:00 EST, Height/Length Dosing, 115.4, kg, 04/03/22 21:05:00 EST, Weight Dosing Orders: nystatin, 500,000 unit(s) = 5 mL, Susp-Oral, Oral, Once, Stop date 04/03/22 21:53:00 EST, STAT, Start date 04/03/22 21:53:00 EST, 04/03/22 21:53:00 EST Diagnostic Tests Pending * Group A Strep by PCR 04/03/22 [facility]12-19-2022 Hospital Discharge instructions Patient Education 03/08/2022 21:46:03 Viral Illness, Adult Viral Illness, Adult Viruses are tiny germs that can get into a person's body and cause illness. There are many different types of viruses, and they cause many types of illness. Viral illnesses can range from mild to severe. They can affect various parts of the body. Common illnesses that are caused by a virus include colds and the flu. Viral illnesses also includeserious conditions such as HIV/AIDS (human immunodeficiency virus/acquired immunodeficiency syndrome). A few viruses have been linked to certain cancers. What are the causes? Many types of viruses can cause illness. Viruses invade cells in your body, multiply, and cause theinfected cells to malfunction or . When the cell dies, it releases more of the virus. When this happens, you develop symptoms of the illness, and the virus continues to spread to other cells. If the virus takes over the function of the cell, it can cause the cell to divide and grow out of control, as is the case when a virus causes cancer. Different viruses get into the body in different ways. You can get a virus by: Swallowing food or water that is contaminated with the virus. Breathing in droplets that have been coughed or sneezed into the air by an infected person. Touching a surface that has been contaminated with the virus and then touching your eyes, nose, or mouth. Being bitten by an insect or animal that carries the virus. Having sexual contact with a person who is infected with the virus. Being exposed to blood or fluids that contain the virus, either through an open cut or during a transfusion. If a virus enters your body, your body's defense system (immune system) will try to fight the virus. You may be at higher risk for a viral illness if your immune system is weak. What are the signs or symptoms? Symptoms vary depending on the type of virus and the location of the cells that it invades. Common symptoms of the main types of viral illnesses include: Cold and flu viruses Fever. Headache. Sore throat. Muscle aches. Nasal congestion. Cough. Digestive system (gastrointestinal) viruses Fever. Abdominal pain. Nausea. Diarrhea. Liver viruses (hepatitis) Loss of appetite. Tiredness. Yellowing of the skin (jaundice). Brain and spinal cord viruses Fever. Headache. Stiff neck. Nausea and vomiting. Confusion or sleepiness. Skin viruses Warts. Itching. Rash. Sexually transmitted viruses Discharge. Swelling. Redness. Rash. How is this treated? Viruses can be difficult to treat because they live within cells. Antibiotic medicines do not treatviruses because these drugs do not get inside cells. Treatment for a viral illness may include: Resting and drinking plenty of fluids. Medicines to relieve symptoms. These can include aerl-dom-zijhvyo medicine for pain and fever, medicines for cough or congestion, and medicines to relieve diarrhea. Antiviral medicines. These drugs are available only for certain types of viruses. They may help reduce flu symptoms if taken early. There are also many antiviral medicines for hepatitis and HIV/AIDS. Some viral illnesses can be prevented with vaccinations. A common example is the flu shot. Follow these instructions at home: Medicines Take iira-hax-qbldifi and prescription medicines only as told by your health care provider. If you were prescribed an antiviral medicine, take it as told by your health care provider. Do not stop taking the medicine even if you start to feel better. Be aware of when antibiotics are needed and when they are not needed. Antibiotics do not treat viruses. If your health care provider thinks that you may have a bacterial infection as well as a viral infection, you may get an antibiotic. ?Do not ask for an antibiotic prescription if you have been diagnosed with a viral illness. That will not make your illness go away faster. ?Frequently taking antibiotics when they are not needed can lead to antibiotic resistance. When this develops, the medicine no longer works against the bacteria that it normally fights. General instructions Drink enough fluids to keep your urine clear or pale yellow. Rest as much as possible. Return to your normal activities as told by your health care provider. Ask your health care provider what activities are safe for you. Keep all follow-up visits as told by your health care provider. This is important. How is this prevented? Take these actions to reduce your risk of viral infection: Eat a healthy diet and get enough rest. Wash your hands often with soap and water. This is especially important when you are in public places. If soap and water are not available, use hand asset protection assistant. Avoid close contact with friends and family who have a viral illness. If you travel to areas where viral gastrointestinal infection is common, avoid drinking water or eating raw food. Keep your immunizations up to date. Get a flu shot every year as told by your health care provider. Do not share toothbrushes, nail clippers, razors, or needles with other people. Always practice safe sex. Contact a health care provider if: You have symptoms of a viral illness that do not go away. Your symptoms come back after going away. Your symptoms get worse. Get help right away if: You have trouble breathing. You have a severe headache or a stiff neck. You have severe vomiting or abdominal pain. This information is not intended to replace advice given to you by your health care provider. Make sure you discuss any questions you have with your health care provider. Document Released: 07/16/2016 Document Revised: 02/17/2018 Document Reviewed: 07/16/2016 [email or web address] Patient Education 2019 [employer] Follow Up Care 03/08/2022 19:12:44 With:Jordan [place] Address: [address] [place], [place] [id number] Business (1) When:03/11/2022 21:36:26 Comments:Please follow-up with your primary care doctor in the next 2 to 3 days for further evaluation management. You can use Tylenol every 6 hours as needed for fever. Please return to the ED for any new orworsening symptoms. Please follow-up with your PASSENGER SERVICE AGENT for further evaluation management. [facility]12-19-2022 Evaluation + Plan noteExtracted from: Title:ED NoteAuthor:Osmar Duran DO ADate:03/08/22 Flu-like symptoms (R68.89: O ther general symptoms and signs) Orders: acetaminophen, 650 mg = 2 tab(s), Tab, Oral, Once, Stop date 03/08/22 20:09:00 EST, STAT, Start date 03/08/22 20:09:00 EST, 03/08/22 20:09:00 EST ondansetron, 4 mg = 1 tab(s), Tab-Dis, Oral, Once, Stop date 03/08/22 20:09:00 EST, STAT, Start date 03/08/22 20:09:00 EST, 03/08/22 20:09:00 EST Group A Strep by PCR Rapid COVID Antigen ([facility] Rapid Strep w/rfx [facility]07-07-2022 Evaluation note* Encounter Date Diagnosis Assessment Notes Treatment Notes Treatment Clinical Notes Sep, Contact with and (matute spected) exposure to covid-19 (ICD-10 - Z20.822) 07 Bar, 2022COVID-19 (ICD-10 - U07.1)Today you tested positive for the COVID virus. This mean you need to follow all CDC quarantine guidelines found at coronavirus.[place].gov. It is important to rest, increase fluids, and stay at home. Contact PCP and inform them of results. Medications like Mucinex, Cepacol, Tylenol, saline nasal sprayare over the counter medications that can help with the symptoms. Current guidelines include staying home, having no fever above 100.4 for 24 hours without medication and having significant improvement of symptoms before you are allowed to stop your quarantine.. For full guidelines go to CDC. GOV. Contact primary care and ask for guidance is essential to follow up * EDUCATION HANDOUT GIVEN ON OTC TREATMENTS, FOLLOW UP AND WHEN TO SEEK EMERGENCY TREATMENT Sep,ther otitis externa, bilateral (ICD-10 - H60.8X3) Sep,therAdditional time spent conducting pre-visit phone call, screening for symptoms, instructions on social distancing, application and removal of PPE, and cleaning of examination room, equipment and supplies was performed. Patient education given for testing methodology and results. Patient care instructions given in writing by [facility] Care At Home document. Yi De Other Evaluation + Plan note No data available for this section [facility] information available [facility] Work Phone: Evaluation note* Diagnosis Stage 3b chronic kidney disease ([facility])- Primary [facility]* Diagnosis Encounter for consultation for female sterilization- Primary documented in this encounter [facility]* Diagnosis Stage 3a chronic kidney disease ([facility])- Primary Essential hypertension Unspecified essential hypertension Class 3 severe obesity with serious comorbidity and body mass index (BMI) of 40.0 to 44.9 in adult,unspecified obesity type ([facility]) Hypovitaminosis D Unspecified vitamin D deficiency Hypomagnesemia 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 documented in this encounter [facility]* Diagnosis Preop examination- Primary Unspecified pre-operative examination Hypertension, unspecified type Stage 3b chronic kidney disease ([facility]) BMI 40.0-44.9, adult ([facility]) Preop examination Unspecified pre-operative examination Hypertension, unspecified type Stage 3b chronic kidney disease ([facility]) BMI 40.0-44.9, adult ([facility]) documented in this encounter [facility] [facility] Diagnosis Encounter for medical examination to establish care- Primary Influenza A Influenza with other respiratory manifestations Stage 3b chronic kidney disease ([facility]) 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 documented in this encounter [facility]* Diagnosis Visit for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
--- OUTSIDE RECORDS SUMMARY | 2025-01-30 12:54 | XMS_ITS | Clinical Summary ---
Author Organization [employer] Address [id number] [address] [place] [address] Care Team Providers Care Machine Stuffer Automatic Name Role Phone Delicia Parker Basilia ZAVALA-SUPERVISING FILM OR VIDEOTAPE EDITOR Primary Care Provider + Allergies No known active allergies Medications MedicationSigDispense QuantityRefillsLast FilledStart DateEnd DateStatus cholecalciferol, vitamin D3, (VITAMIN D3) 5,000 units capsule Take 1 capsule (5,000 Units total) by mouth in the morning. 90 capsule 5Active Additional Information Patient not taking.Reported on 10/18/2024 losartan (COZAAR) 50 mg tablet Take 1 tablet (50 mg total) by mouth in the morning. 90 tablet 5Active sulfacetamide sodium, acne, 10 % suspension APPLY THIN LAYER TO FACE ONCE DAILY5Active Active Problems ProblemNoted DateDiagnosed DateStroke-like hlbiovvk72/31/2025Essential myfddvlrnrmm56/10/2025lass 3 severe obesity with serious comorbidity and body mass index (BMI) of 40.0 to 44.9 in adult03/30/20244961Hqsclshypncxce30/10/2025FSGS (focal segmental glomerulosclerosis) with chronic irylvmxfhuvtnhlsmb24/10/2025 Stage 3b chronic kidney smyacbz1211/04/2022Normal intrauterine in third bhbihvkuk09/26/4507Swurfauklnv44/18/2023Maternal varicella, non-tyzgie6410/05/2022 Rubella non-immune status, omjwugjzkm55/18/2023Family history of hepatitis C 06/08/2022 Overview (06/08/2022): Patient's mother Chronic hypertension affecting aelhwrgqx70/08/2022 Overview (06/08/2022): [facility] surveillance recommendation is twice per week NST and weekly WILLIAMS (or equivalent) beginning at 32 weeks unless stability and/or other co- morbidities changes recommendation to earlier Non-nephrotic range jjkrerihzuu17/08/2022Hypovitaminosis D12Renal disease in antepartum coqvyvhgz56/23/2022 Overview (06/11/2021): BP 130/80 goal range per Nephro Pwlasptgqkx50/11/2022 Resolved Problems ProblemNoted DateDiagnosed DateResolved DateGBS (group B Streptococcus carrier), +RV culture, currently uneskifz59/Short interval between pregnancies affecting , zaezmkqbmk30/08/202207/Obesity affecting uqbglqyqu57/ Overview (06/08/2022): [facility] recommendations for BMI > 40 is weekly WILLIAMS and weekly NST starting at 32 weeks, then weekly WILLIAMS and twice weekly NSTs starting at 36 weeks 3.- please note that [facility] recc is for TWICE per week NST with weekly WILLIAMS (or equivalent) beginning at 32 weeks's gestation- JVHMD History of delivery, currently bkpkhnjy19/ Encounters DateTypeDepartmentCare SkbiPwojmomnmvy03/06/2025Results Follow-Up [facility] - Emergency [address] [place] [phone] Delicia Parker APRN-SUPERVISING FILM OR VIDEOTAPE EDITOR ECG 12 lead12/07/2024 10:06 PM EDT - 12/07/2024 10:40 PM EDTEmergency [facility] - Emergency [address] [place] [address] Emanuel Frias, Post-nasal drip (Primary Dx) Discharge Disposition: Home12/07/20242905Aaxsrn33/11/2025Results Follow-Up [facility] Emergency Department [address] [facility] [place] [phone] Delicia Parker, LICENSING DIRECTOR-SUPERVISING FILM OR VIDEOTAPE EDITOR ECG 12 lead11/26/2024 3:14 PM EDT - 11/26/2024 6:08 PM EDTEmergency [facility] Emergency Department [address] [place] [phone] Colin Martinez DO Leg weakness, bilateral (Primary Dx) Discharge Disposition: Home11/06/2024 7:40 AM EDT - 11/06/2024 11:59 PM EDT Hospital Encounter [facility] - MRI Imaging [address] [place] [address] Stroke-like symptoms Discharge Disposition: Home11/06/2024Travelfrom Last 3 Months Immunizations ImmunizationAdministration DatesNext DueDTaP, Yhhtyobrkml31/13/2003,01/05/1999, 01/03/1998,1997HPV Dhqxvhnwehwb75/20/2014,04/10/2013,02/06/2013Hep A, 2 Dose11/09/2011,11/05/2010Hep B / HIB03/19/1998,1997Hep B, Adolescent or Cpcnmuntf75/05/1998Hib (HbOC)01/05/1999Hib (PRP-OMP)01/03/1998IPV04/02/2002, 01/03/1998,1997MMR10/16/2022,07/30/2021(Deferred: - RECONSTITUTED THE MEDICATION AND WHEN SCANNED, DRUG-DISEASE CONTRAINDICATION POPPED UP AND DISCUSSED WITH PHARMACY AND WHARF LABOURER; DECIDED AGAINST GIVING IT AT THIS TIME AND WILL WAIT UNTIL PATIENT'S KIDNEY FUNCTION IS BETTER TO GET THEN.),04/02/2002, 01/05/1999Meningococcal B, Omv1,10/21/2015Meningococcal KQE4Q2910/21/2015 ,11/05/2010OPV1Td, Qscrtlbhjwo96/30/2718Ezxd84/12/2022,11/05/2010 Wagcqdyrt25/18/2011,01/05/1999 Family History Medical HistoryRelationNameCommentsHeart failureFatherHypertensionFatherStroke Maternal GrandfatherDiabetesMaternal GrandmotherHeart failureMotherkathyPott's diseaseMotherkathyDiabetesPaternal GrandmotherStrokeSisterBreast cancerNeg Hx Colon cancerNeg HxOvarian cancerNeg HxUterine cancerNeg HxRelationNameStatus CommentsFatherDeceasedMaternal GrandfatherMaternal GrandmotherMotherkathyAlive Paternal GrandmotherSister Social History Tobacco UseTypesPacks/DayYears UsedDateSmoking Tobacco: NeverSmokeless Tobacco: Never Tobacco Cessation:Counseling Given: Not Answered Alcohol UseStandard Drinks/WeekCommentsNot Currently0 (1 standard drink = 0.6 oz pure alcohol)[facility] UtilitiesAnswerDate RecordedIn the past 12 months has the [employer], gas, oil, or water [employer] threatened to shut off services in your [...] living?No 10/19/2024Edinburgh Depression ScaleAnswerDate RecordedEdinburgh Depression Scale Hsmli888The thought of harming myself has occurred to me.Never11/23/2022Housing InstabilityAnswerDate RecordedAre you worried or concerned that in the next two months you may not have stable housing that you own, rent or stay in as a part of a household?No10/19/2024hildcare AnswerDate RecordedDo problems getting child care cook make it difficult for you to work [...] True12/07/2024CommentsNoSex and Gender InformationValueDate RecordedSex Assigned at RmqrcXgydto02/07/2023 10:14 AM EDTLegal SexFemale 12/02/2020 11:56 AM EDTGender IyvjnxztFtwhcv97/07/2023 10:14 AM EDTSexual OnrgzupqgqtLgiayrva58/07/2023 10:14 AM EDT Last Filed Vital Signs Vital SignReadingTime TakenCommentsBlood Mjzuygcz817/8912/07/2024 10:40 PM EDT Ffxbu852412/07/2024 10:40 PM QPKHgtgopbeebn76.8 ??C (98.2 ??F)12/07/2024 9:16 PM EDTRespiratory Kqms292812/07/2024 10:40 PM EDTOxygen Ttomsymtwt52%12/07/2024 10:40 PM EDTInhaled Oxygen Concentration--Fbahrq612.4 kg (250 lb)12/07/2024 9:16 PM MNPEnmpuw260.6 cm (5' 4 )12/07/2024 9:16 PM EDTBody Mass Index42.9112/07/2024 9:16 PM EDT Plan of Treatment DateTypeDepartmentCare Team (Latest Contact Info)Dnrkncqsvfq12/13/2025 4:15 PM ESTAppointment [facility] [address] [place] [phone] 03/22/2025 9:40 AM ESTOffice Visit [facility] [address] [place] [phone] Delicia Parker, LICENSING DIRECTOR-SUPERVISING FILM OR VIDEOTAPE EDITOR [address] [place] [address] Health MaintenanceDue DateLast DoneCommentsAdult BMI Follow Up Plan08/22/2015 Influenza Cxrljct2211/19/2024Pap Smear01//645090/3Depression Screening 607/01/2025, 11/23/2022dult BMI Ipzetmrvo08Tobacco Njonqxitt84DTaP,Tdap and Td Vaccines (7 - Td or Tdap) , 11/05/2010, 04/02/2002, Additional history exists Medical Devices Not on file Procedures Procedure NamePriorityDate/TimeAssociated DiagnosisCommentsECG 12-LEADSTAT 12/07/2024 10:17 PM EDT XR CHEST 2 ZUNMTHH7712/07/2024 9:45 PM EDT SARS/FLU A+B/RSV BY NAAT/MOLECULAR (M4RT COLLECTION TUBE)STAT12/07/2024 9:18 PM EDT ECG 12-GCUCLHOB00/08/2025 4:26 PM EDT BASIC METABOLIC EDNCBZEXF01/08/2025 4:16 PM EDT CBC WITH AUTO BACKSJYSNMOVXVUG50/08/2025 4:[address] CERVICAL SPINE WO ZPUJXOTO99/08/2025 4:[address] CTA BOJLEMUU12/08/2025 4:13 PM EDT BEDSIDE JFIFANLScdgvtf37/08/2025 4:[address] CTA LDYNPXDGDJP37/08/2025 4:[address] BRAIN WO CONT STROKE YFKNYVMVT07/08/2025 4:08 PM EDT MR MRV HEAD W WO UNBUDcfxmfm10/19/2025 8:34 AM EDT Stroke-like symptoms PAP OEAQQBiicocg82/03/2023 8:59 AM EST Cervical smear, as part of routine gynecological examination First trimester from Last 3 Months or Most Recently Relevant to Health Maintenance Results * ECG 12 lead (12/07/2024 10:17 PM EDT) Only the most recent of2 resultswithin the time period is included. Specimen (Source)Anatomical Location / LateralityCollection Method / Volume Collection TimeReceived Time12/07/2024 10:17 PM EDT Narrative [facility] - 01/23/2025 9:44 PM EST Authorizing ProviderResult TypeResult StatusAhmaelaine Frias DOECG ORDERABLES Final ResultPerforming OrganizationAddressCity/State/ZIP CodePhone Number [facility] * X-ray chest 2 views (12/07/2024 9:45 PM EDT)Anatomical RegionLaterality ModalityBody, ChestN/AComputed RadiographySpecimen (Source)Anatomical Location / LateralityCollection Method / VolumeCollection TimeReceived Time12/07/2024 10:01 PM EDT Narrative 12/07/2024 10:01 PM EDT PA and lateral chest: HISTORY: Cough. 2 views the chest are obtained. Cardiac and mediastinal contours are within normal limits. Lungs are clear. There is no vascular congestion, effusion, or pneumothorax. Osseous structures appear intact. IMPRESSION: No acute findings. Finalized by Terrence Cr MD on 12/07/2024 10:01 PM Procedure Note Terrence Cr MD - 12/07/2024 PA and lateral chest: HISTORY: Cough. 2 views the chest are obtained. Cardiac and mediastinal contours arewithin normal limits. Lungs are clear. There is no vascular congestion,effusion, or pneumothorax. Osseous structures appear intact. IMPRESSION: No acute findings. Finalized by Terrence Cr MD on 12/07/2024 10:01 PM Authorizing ProviderResult TypeResult StatusEmanuel Frias [facility] DIAGNOSTIC IMAGING ORDERABLESFinal Result * SARS/FLU A+B/RSV by NAAT/Molecular (M4RT Collection Tube) (12/07/2024 9:18 PM EDT)ComponentValueRef RangeTest MethodAnalysis TimePerformed AtPathologist SignatureFLU A PHCVrobusejWecfyvfv85/19/2025 10:16 PM EDTPOUR LADY OF [facility] ANDERSONFLU B KYXHfwxvnrrGbqzxhvd60/19/2025 10:16 PM EDTPOUR LADY OF [facility] ANDERSONRSV BY VNAMlcnbghlWdojwwzp82/19/2025 10:16 PM EDT [facility] COV 2 BY PCRNot DetectedNot Detected 12/07/2024 10:16 PM [facility]USpecimen (Source) Anatomical Location / LateralityCollection Method / VolumeCollection Time Received TimeSwabNasopharyngeal structure / Czukdor7612/07/2024 9:18 PM EDT 12/07/2024 9:36 PM EDT Narrative [facility] - 12/07/2024 10:16 PM EDT The Xpert Xpress SARS-CoV-2/Flu/RSV Plus test is [...] operators who are performing tests using either [employer] DX or MOLI systems and is limited to laboratories that [...] specimen repeat. Fact Sheet for Healthcare Providers: ?? https://www.Shozu.gov/media/944569/download ? Fact Sheet for Patients: ?? https://www.Shozu.gov/media/877040/download ?? Authorizing ProviderResult TypeResult StatusEmanuel Frias DOMICROBIOLOGY - GENERAL ORDERABLESFinal ResultPerforming OrganizationAddressCity/State/ZIP Code Phone Number [facility] [address] [place] [address], * (ABNORMAL) CBC auto differential (11/26/2024 4:16 PM EDT)ComponentValueRef RangeTest MethodAnalysis TimePerformed AtPathologist YmbuibguiCNE67.64 - 11 x10E9/L11/26/2024 4:41 PM [facility] LABORATORYRBC Count4.36 3.8 - 5.2 X10E12/L11/26/2024 4:41 PM [facility] Eemzjcwzgk33.711.7 - 15.5 g/dL11/26/2024 4:41 PM [facility] UJNQWONRLWFhdiuoahtn18.835 - 47 %11/26/2024 4:41 PM [facility] UOVCHANMTPPEX7009 - 100 fL11/26/2024 4:41 PM [facility] PKTDWKJBNAWGS51.127 - 34 pg11/26/2024 4:41 PM [facility] BHGWLZGEJVAACP67.732 - 36 g/dL11/26/2024 4:41 PM [facility] MOOXBOUPQEPZY42.311.5 - 15 %11/26/2024 4:41 PM [facility] LABORATORYPlatelet Myfrb427013 - 450 X10E9/L11/26/2024 4:41 PM [facility] LABORATORYMPV8.07 - 12 fL11/26/2024 4:41 PM [facility] LABORATORYNeutrophils %79.3%11/26/2024 4:41 PM [facility]ORATORYLymphocytes %14.6%11/26/2024 4:41 PM [facility]OR[facility]ORYMonocytes %4.5%11/26/2024 4:41 PM [facility] LABORATORYEosinophils %1.0%11/26/2024 4:41 PM [facility] LABORATORYBasophils %0.6%11/26/2024 4:41 PM [facility] LABORATORYNeutrophils Absolute (A)8.4(H)1.5 - 6.6 10*3/uL 11/26/2024 4:41 PM [facility] LABORATORYLymphocytes Absolute 1.51.0 - 3.5 10*3/uL11/26/2024 4:41 PM [facility] Monocytes Absolute0.50.0 - 0.9 10*3/uL11/26/2024 4:41 PM [facility]ORATORYEosinophils Absolute0.10.0 - 0.4 10*3/uL11/26/2024 4:41 PM [facility]ORATORYBasophils Absolute0.10.0 - 0.2 10*3/uL 11/26/2024 4:41 PM [facility] LABORATORYDifferential Type AUTOMATED MAIWSZVVSIYX31/08/2025 4:41 PM [facility] LABORATORYSpecimen (Source)Anatomical Location / LateralityCollection Method / VolumeCollection TimeReceived TimeBloodVenous blood / UnknownVenipuncture / Ocodpeh38/10/2024 4:16 PM EDT11/26/2024 4:25 PM EDT Narrative Authorizing ProviderResult TypeResult StatusMonica Manshoward DOLAB BLOOD ORDERABLESFinal ResultPerforming OrganizationAddressCity/State/ZIP CodePhone Number [facility] [address] [place] [address], [place] [phone] * (ABNORMAL) Basic Metabolic Panel (11/26/2024 4:16 PM EDT)ComponentValueRef RangeTest MethodAnalysis TimePerformed AtPathologist TkquajujgZGFSFI322254 - 146 mmol/L11/26/2024 5:10 PM [facility] LABORATORYPOTASSIUM 5.4(H)3.5 - 5.0 mmol/L11/26/2024 5:10 PM [facility] LABORATORYComment:R-Specimen moderately hemolyzed, results increasedCHLORIDE 83908 - 109 mmol/L11/26/2024 5:10 PM [facility] CARBON EFNAACV0797 - 32 mmol/L11/26/2024 5:10 PM [facility] LABORATORYANION GAP65 - 15 mmol/L11/26/2024 5:10 PM [facility] LABORATORYBLOOD UREA MONVQPAM321 - 23 mg/dL11/26/2024 5:10 PM [facility] LABORATORYCREATININE1.19(H)0.40 - 1.00 mg/dL11/26/2024 5:10 PM [facility] LABORATORYComment:METHOD TRACEABLE TO IDSD PSNHBZPEFFJGOLF1812 - 99 mg/dL11/26/2024 5:10 PM [facility] LABORATORYCALCIUM7.4(L)8.5 - 10.5 mg/dL11/26/2024 5:10 PM [facility]ORYEGFR Non-Race Jspnpxely02>=60 ml/min/1.73sq.m011/26/2024 5:10 PM [facility] LABORATORYComment: Reported eGFR is based on the CKD-EPI 2020 equation that does not use a race coefficient. Specimen (Source)Anatomical Location / LateralityCollection Method / Volume Collection TimeReceived TimeBloodVenous blood / UnknownVenipuncture / Unknown 11/26/2024 4:16 PM EDT11/26/2024 4:25 PM EDT Narrative Authorizing ProviderResult TypeResult StatusMongrace Gonsalez DOLAB BLOOD ORDERABLESFinal ResultPerforming OrganizationAddressCity/State/ZIP CodePhone Number [facility] [address] [place] [address], * CT cervical spine without contrast (11/26/2024 4:14 PM EDT)Anatomical Region LateralityModalityMSK, Neuro, Spine, C-spine, Spine CoveraN/AComputed TomographySpecimen (Source)Anatomical Location / LateralityCollection Method / VolumeCollection TimeReceived Time11/26/2024 4:21 PM EDT Narrative 11/26/2024 4:[address] CERVICAL SPINE WO CONT CLINICAL INFORMATION: [...] MR imaging or flexion-extension radiographs. IMPRESSION: * ??No acute cervical spine fracture. * ??Mild degenerative changes. * ??Straightening of the normal cervical lordosis. Finalized by Jason Carballo MD on 11/26/2024 4:26 PM Procedure Note Jason Carballo MD - 11/26/2024 CT CERVICAL SPINE WO CONT CLINICAL INFORMATION: leg weakness. COMPARISON: None. PROCEDURE: Routine cervical spine protocol CT was obtained without intravenouscontrast. Sagittal and coronal reformatted images were obtained from theaxial data. All CT scans at this facility use dose modulation, iterativereconstruction, and/or weight based dosing when appropriate to reduceradiation dose to as low as reasonably achievable. FINDINGS: No fracture. Degenerative changes at C4-5 with loss of normal cervicallordosis which could be positional or due to sprain. No prevertebral softtissue swelling. Otherwise normal alignment. Please note, if ligamentous or spinal cord injury is of clinical concern,suggest MR imaging or flexion-extension radiographs. IMPRESSION: * No acute cervical spine fracture. * Mild degenerative changes. * Straightening of the normal cervical lordosis. Finalized by Jason Carballo MD on 11/26/2024 4:26 PM Authorizing ProviderResult TypeResult StatusMaxstephani Martinez [facility] CT ORDERABLESFinal Result * CT angiogram head (11/26/2024 4:13 PM EDT)Anatomical RegionLateralityModality Head, Neuro, Vascular, Head and Neck, Neuro CoveraN/AComputed Tomography Specimen (Source)Anatomical Location / LateralityCollection Method / Volume Collection TimeReceived Time11/26/2024 4:14 PM EDT Narrative 11/26/2024 4:21 PM EDT CLINICAL INFORMATION: leg weakness COMPARISON: 10/18/2024 TECHNIQUE: CT angiography of the head obtained during intravenous administration of contrast. In addition, MIP and/or 3-D reformatted images were constructed under concurrent physician supervision carlos independent workstation for evaluation of the the cerebral arteries to better define anatomy and possible pathology. Arterial blood flow was measured to [...] occlusion or aneurysm major branches of the [place]. If there is persistent concern for acute ischemia, consider MRI/MRA. Finalized by Roosevelt Toro MD on 11/26/2024 4:21 PM Procedure Note Roosevelt Toro MD - 11/26/2024 CLINICAL INFORMATION: leg weakness COMPARISON: 10/18/2024 TECHNIQUE: CT angiography of the head obtained during intravenousadministration of contrast. In addition, MIP and/or 3-D reformatted imageswere constructed under concurrent physician supervision on an independentworkstation for evaluation of the the cerebral arteries to better defineanatomy and possible pathology. Arterial blood flow was measured to assist the stroke clinical team in the diagnosis of large vessel occlusion in patientsundergoing screening for acute ischemic stroke using Rapid AI softwarewhen clinically indicated. All CT scans at this facility use dosemodulation, iterative reconstruction, and/or weight based dosing when appropriate toreduce radiation dose to as low as reasonably achievable. FINDINGS: Suboptimal bolus timing compromises assessment. Neck dictated separately. Visualized internal carotid arteries, anterior, middle and posteriorcerebral arteries are patent. Vertebral and basilar arteries are patent. No sizable saccular aneurysm. However, CT angiograms may miss small orthrombosed aneurysms. IMPRESSION: Suboptimal bolus timing compromises assessment. Within these limitations, no large vessel occlusion or aneurysm majorbranches of the [place]. If there is persistent concern for acute ischemia, consider MRI/MRA. Finalized by Roosevelt Toro MD on 11/26/2024 4:21 PM Authorizing ProviderResult TypeResult StatusColin Martinez [facility] CT ORDERABLESFinal Result * Bedside Glucose *Place/Obtain serum glucose if >500 per glucometer. (11/26/2024 4:12 PM EDT)ComponentValueRef RangeTest MethodAnalysis Time Performed AtPathologist SignatureBedside Glucose (POC)8665 - 99 mg/dL 11/26/2024 4:18 PM [facility] LABORATORYSpecimen (Source)Anatomical Location / LateralityCollection Method / VolumeCollection TimeReceived Time arterial/nqxlcpyhv19/08/2025 4:12 PM EDT11/26/2024 4:18 PM EDT Narrative Authorizing ProviderResult TypeResult StatusColin Martinez DOPOINT OF CARE TEST ORDERABLESFinal ResultPerforming OrganizationAddressCity/State/ZIP Code Phone Number [facility] [address] [place] [address], * CT angiogram carotid (11/26/2024 4:11 PM EDT)Anatomical RegionLaterality ModalityNeuro, Neck, Vascular, Neuro CoveraN/AComputed TomographySpecimen (Source)Anatomical Location / LateralityCollection Method / VolumeCollection TimeReceived Time11/26/2024 4:13 PM EDT Narrative 11/26/2024 4:16 PM EDT History: Leg weakness. Exam/Technique: ??Contiguous axial images are obtained of the CTA carotid angiogram 100ml Gayhbkyfs296 intravenous contrast. ?Coronal and sagittal reconstructions were performed and reviewed. CT angiogram protocol with 3-D and volumetric scans acquired. Automatic dose exposure reduction technique utilized. Comparison: ??10/18/2024 Findings: ?? NON VASCULAR FINDINGS: Study compromised by patient [...] appear patent to the skull base. IMPRESSION: ?? No significant vascular stenosis. Study interpreted with NASCET criteria. Distal ??ICA -Area of Stenosis/Max ICA diameter. All CT scans at this facility use dose modulation, iterative reconstruction, and/or weight based dosing when appropriate to reduce radiation dose to as low as reasonably achievable. Finalized by Ray Mao MD on 11/26/2024 4:16 PM Procedure Note Ray Mao MD - 11/26/2024 History: Leg weakness. Exam/Technique: Contiguous axial images are obtained of the CTA carotidangiogram 100ml Omnipaque 350 intravenous contrast. Coronal andsagittal reconstructions were performed and reviewed. CT angiogram protocol with 3-D and volumetric scans acquired. Automatic dose exposure reduction technique utilized. Comparison: 10/18/2024 Findings: NON VASCULAR FINDINGS: Study compromised by patient body habitus. Lung apices are clear. No soft tissue abnormality of note. Visualized bones of the cervical spine. VASCULAR FINDINGS: Central pulmonary outflow has a normal caliber. Aortic arch normal caliberwith three-vessel configuration to the arch. Both vertebral arteries are visualized emanating from the subclavianarteries with the right dominant. Degree of opacification of the vessels appear limited likely due todecreased contrast density. No evidence of vertebral artery stenosis or occlusion in the neck. Both common carotid arteries are patent. Both carotid bulbs appear patentand both internal carotid arteries appear patent to the skull base. IMPRESSION: No significant vascular stenosis. Study interpreted with NASCET criteria. Distal ICA -Area of Stenosis/Max ICA diameter. All CT scans at this facility use dose modulation, iterativereconstruction, and/or weight based dosing when appropriate to reduceradiation dose to as low as reasonably achievable. Finalized by Ray Mao MD on 11/26/2024 4:16 PM Authorizing ProviderResult TypeResult StatusVirginia Beachstephani Martinez [facility] CT ORDERABLESFinal Result * CT brain without contrast stroke alert (11/26/2024 4:08 PM EDT)Anatomical RegionLateralityModalityNeuro, Head, Head and Neck, Neuro CoveraN/AComputed TomographySpecimen (Source)Anatomical Location / LateralityCollection Method / VolumeCollection TimeReceived Time11/26/2024 4:11 PM EDT Narrative 11/26/2024 4:18 PM EDT STUDY: CT BRAIN WO CONT STROKE ALERT INDICATION: bilateral leg weakness after cervical manipulation. Neurologic deficit. TECHNIQUE: * ??CT head was performed without intravenous contrast using the standard protocol. Automated exposure control was utilized. * ??All CT scans at this facility use dose [...] ischemia or subtle parenchymal abnormalities. IMPRESSION: * ??No acute intracranial abnormality, by CT. Approved by Resident Aida Thompson DO ??on 11/26/2024 4:11 PM Jason Dooley MD have personally reviewed the image(s) and agree with and/or edited the report Finalized by Jason Carballo MD on 11/26/2024 4:18 PM Procedure Note Jason Carballo MD - 11/26/2024 STUDY: CT BRAIN WO CONT STROKE ALERT INDICATION: bilateral leg weakness after cervical manipulation. Neurologic deficit. TECHNIQUE: * CT head was performed without intravenous contrast using the standardprotocol. Automated exposure control was utilized. * All CT scans at this facility use dose modulation, iterativereconstruction, and/or weight based dosing when appropriate to reduceradiation dose to as low as reasonably achievable. COMPARISON: 10/18/2024 FINDINGS: No evidence of acute intracranial hemorrhage, mass effect, midline shift,or extra-axial fluid collection. Gomez-white differentiation is preserved. Ventricles, sulci and cistern are unremarkable. Brain volume is ageappropriate. Orbits and globes appear unremarkable. Soft tissues areunremarkable. Paranasal sinuses are broadly clear. Mastoid air cells are broadly clear.No acute osseous abnormality. Please note, MRI is more sensitive for the evaluation of ischemia orsubtle parenchymal abnormalities. IMPRESSION: * No acute intracranial abnormality, by CT. Approved by Resident Aida Thompson DO on 11/26/2024 4:11 PM Jason Dooley MD have personally reviewed the image(s) and agreewith and/or edited the report Finalized by Jason Carballo MD on 11/26/2024 4:18 PM Authorizing ProviderResult TypeResult StatusMaxstephani Martinez [facility] ORDERABLESFinal Result * MRV head with and without contrast (11/06/2024 8:34 AM EDT)Anatomical Region LateralityModalityNeuro, Head, Head and Neck, Angio, Neuro CoveraN/AMagnetic ResonanceSpecimen (Source)Anatomical Location / LateralityCollection Method / VolumeCollection TimeReceived Time11/07/2024 3:43 PM EDT Narrative 11/07/2024 3:46 PM EDT EXAM: MR MRV HEAD W WO CONT [...] by Brenden Maddox MD on 11/07/2024 3:46 PM Procedure Note Brenden Maddox MD - 11/07/2024 EXAM: MR MRV HEAD W WO CONT CLINICAL INFORMATION: Stroke-like symptoms. TECHNIQUE: Following the uneventful intravenous administration of 20 mLProHance, an MRV of the head was obtained. Source and 3-D MIP reformattedimages of the MRV were obtained and reviewed. Axial, sagittal, and coronalpostcontrast sequences of the brain were also obtained. COMPARISON: MRI brain without contrast dated 10/18/2024 FINDINGS: There are normal patent dural venous sinuses. There is no evidence fordural venous sinus thrombosis. There is no evidence for an enhancing cranial mass or mass effect. Thereis no shift of the midline structures and the basal cisterns are widelypatent. There is no evidence of ventricular outflow obstruction. Themidline structures and craniocervical junction are within normal limits. There is no evidence for an enhancing cranial mass or mass effect. IMPRESSION: 1. Normal MRV head. There are normal patent dural venous sinuses withoutevidence for dural venous sinus thrombosis. 2. No enhancing intracranial mass or mass effect. Finalized by Brenden Maddox MD on 11/07/2024 3:46 PM Authorizing ProviderResult TypeResult StatusJosue STREET MRI ORDERABLES Final Result * Pap Smear (03/23/2022 8:59 AM EST)Specimen (Source)Anatomical Location / LateralityCollection Method / VolumeCollection TimeReceived Time03/23/2022 8:59 AM EST03/23/2022 9:03 AM EST Narrative [facility] - 03/25/2022 1:08 PM EST [facility] ? [address] [place] [address] ? [place] [id number] ? Gynecologic Cytology Consultation ? Patient Name:ELIEZER URBAN:1995 (Age: 26)Gender:FTaken:03/23/2022Reported:03/25/2022hysician(s):Marija Hoff DO ([phone])Copy To: Rec. #:[id number]: #[id number] Final Cytologic Interpretation ThinPrep Pap Test (Cervical): Satisfactory for evaluation. A transformation zone component is present. NEGATIVE FOR INTRAEPITHELIAL LESION OR MALIGNANCY. ?? gxo/03/25/2022 Interpretation [place] [address], License number: [id number]. Electronically Signed Out By ?Apple Mcallister Date of Last Menstrual Period: ? 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 Thin Prep Pap (ACTIVITIES THERAPIST) Fee Code(s): ?? G0145 Authorizing ProviderResult TypeResult StatusMarija Hoff DOPATHOLOGY/CYTOLOGY ORDERABLESFinal ResultPerforming OrganizationAddressCity/State/ZIP CodePhone Number COPATH from Last 3 Months or Most Recently Relevant to Health Maintenance Insurance Advance Directives * Full Code (Latest Code Status on File) Date ActivatedDate InactivatedComments10/18/2024 5:55 PM10/19/2024 5:34 PM * Full Code Date ActivatedDate InactivatedComments10/13/2022 8:37 AM10/16/2022 3:04 PM * Full Code Date ActivatedDate InactivatedComments09/14/2022 4:38 PM09/14/2022 7:03 PM * Full Code Date ActivatedDate InactivatedComments07/27/2021 8:16 AM07/30/2021 5:47 PM * Full Code Date ActivatedDate InactivatedComments07/14/2021 5:20 AM07/14/2021 7:48 AM Care Teams Team MemberRelationshipSpecialtyStart DateEnd Date Delicia Parker APRN-ZEFERINO [facility] [place] [address] PCP - [facility]04/26/24
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
== END 2025-01-30 13:38 | disposition home or self-care (01) ==
PROVIDERS: Emergency Provider Student in an Organized Health Care Education/Training Program; PCP Nurse Practitioner Family
DX: M50.90 Cervical disc disorder, unspecified, unspecified cervical region (principal)
CPT/HCPCS: 36415; 80048; 84703; 85025; 99283